=== PATIENT | female | born 1975 | race Caucasian/White ===

== ENCOUNTER 2017-03-21 15:16 | Emergency (ER) | payer OTHER ==
[2017-03-21 15:56] VITALS: RESP 18
[2017-03-21] MEDS ORDERED: IPRATROPIUM-ALBUTEROL 3 ML NEB INHALATION STA (16:35)
--- NOTE | 2017-03-21 16:35 | ED ---
URI HPI - General Chief Complaint: Upper Respiratory Infection Stated Complaint: Congestion/SOB Time Seen by Provider: 03/21/17 16:00 Source: patient, RN notes reviewed Mode of arrival: ambulatory Limitations: no limitations - History of Present Illness Initial Comments: Patient is a 42-year-old female presents to the emergency room for evaluation of cough and shortness of breath. Patient states she is a history of asthma. Patient states she has began developing upper respiratory symptoms about a week ago. Patient states symptoms have traveled to her chest. Patient states she has a very hard/dry cough. Patient states been very congested. Patient states after the cough she feels lightheaded and short of breath. Patient states she' s been using her rescue inhaler with relief of symptoms. Patient states the rest of her family has same upper respiratory symptoms. Patient states she called her primary care provider but he is not in the office so she was sent to the emergency room to get a chest x-ray. Patient states she has throat pain from coughing. Patient states both of her ears feel "blocked". Patient denies chest pain. Patient denies abdominal pain. Patient denies nausea or vomiting. Patient denies fevers or chills. - Related Data Home Medications Medication Instructions Recorded Confirmed DULoxetine HCL [Cymbalta] 60 mg PO DAILY 03/21/17 03/21/17 Lisinopril [Prinivil] 10 mg PO DAILY 03/21/17 03/21/17 Omeprazole [PriLOSEC] 20 mg PO AC-BRKFST 03/21/17 03/21/17 Ranitidine HCl [Zantac] 150 mg PO HS 03/21/17 03/21/17 clonazePAM [KlonoPIN] 0.5 mg PO TID 03/21/17 03/21/17 traMADol HCL [Ultram] 50 mg PO TID PRN 03/21/17 03/21/17 Previous Rx's Medication Instructions Recorded Amoxicillin 500 mg PO Q8H 10 Days 03/21/17 predniSONE 50 mg PO DAILY #5 tablet 03/21/17 Allergies Allergy/AdvReac Type Severity Reaction Status Date / Time ampicillin [From Unasyn] Allergy Rash/Hives Verified 03/21/17 16:23 erythromycin base Allergy Rash/Hives Verified 03/21/17 16:23 [From E-Mycin] sulbactam [From Unasyn] Allergy Rash/Hives Verified 03/21/17 16:23 Review of Systems ROS Statement: Those systems with pertinent positive or pertinent negative responses have been documented in the HPI. ROS Other: All systems not noted in ROS Statement are negative. Past Medical History Past Medical History: Asthma History of Any Multi-Drug Resistant Organisms: None Reported Past Surgical History: No Surgical Hx Reported Past Psychological History: No Psychological Hx Reported Smoking Status: Never smoker Past Alcohol Use History: None Reported Past Drug Use History: None Reported General Exam - General Exam Comments Initial Comments: sitting in exam room, no acute distress. Limitations: no limitations General appearance: alert, in no apparent distress Head exam: Present: atraumatic, normocephalic, normal inspection Eye exam: Present: normal appearance, PERRL, EOMI Pupils: Present: normal accommodation ENT exam: Present: normal exam, normal oropharynx, mucous membranes moist, TM's normal bilaterally Neck exam: Present: normal inspection, full ROM. Absent: tenderness, lymphadenopathy Respiratory exam: Present: wheezes. Absent: respiratory distress Cardiovascular Exam: Present: regular rate, tachycardia, normal heart sounds Extremities exam: Present: normal inspection Back exam: Present: normal inspection Neurological exam: Present: alert, oriented X3, CN II-XII intact, normal gait Psychiatric exam: Present: normal affect, normal mood Skin exam: Present: warm, dry, intact, normal color. Absent: rash Course Vital Signs 03/21/17 03/21/17 03/21/17 15:33 15:48 15:57 Temperature 98.5 F 97.8 F Pulse Rate 115 H 108 H Respiratory 22 18 18 Rate Blood Pressure 129/76 O2 Sat by Pulse 99 98 Oximetry 03/21/17 03/21/17 03/21/17 17:02 17:06 17:16 Temperature 98.1 F Pulse Rate 105 H 108 H Respiratory Rate Blood Pressure O2 Sat by Pulse 96 Oximetry Medical Decision Making - Medical Decision Making patient is a 42-year-old female presents for evaluation of cough. Patient does have history of asthma. Patient having asthma exacerbation. Chest x-ray shows no acute findings. Additionally placed on antibiotics and prednisone. Patient does state that she is ALLERGIC to azithromycin. Patient states that usually she is placed on amoxicillin. Patient does state she had an ALLERGIC reaction to Unasyn but denies any history of ALLERGIC reactions to amoxicillin. Advised patient to follow-up with her primary care provider in 24-48 hours for reevaluation patient states she understands everything that was discussed with her. Return parameters discussed. Case discussed with Dr. Desouza. - Lab Data Result diagrams: 03/21/17 17:00 03/21/17 17:00 Lab Results 03/21/17 03/21/17 Range/Units 17:00 17:00 WBC 10.1 (3.8-10.6) k/uL RBC 5.41 H (3.80-5.40) m/uL Hgb 15.0 (11.4-16.0) gm/dL Hct 44.6 (34.0-46.0) % MCV 82.5 (80.0-100.0) fL MCH 27.8 (25.0-35.0) pg MCHC 33.6 (31.0-37.0) g/dL RDW 13.0 (11.5-15.5) % Plt Count 296 (150-450) k/uL Neutrophils % 56 % Lymphocytes % 33 % Monocytes % 5 % Eosinophils % 3 % Basophils % 1 % Neutrophils # 5.7 (1.3-7.7) k/uL Lymphocytes # 3.4 (1.0-4.8) k/uL Monocytes # 0.5 (0-1.0) k/uL Eosinophils # 0.3 (0-0.7) k/uL Basophils # 0.1 (0-0.2) k/uL Sodium 134 L (137-145) mmol/L Potassium 4.3 (3.5-5.1) mmol/L Chloride 101 (98-107) mmol/L Carbon Dioxide 19 L (22-30) mmol/L Anion Gap 14 mmol/L BUN 13 (7-17) mg/dL Creatinine 0.57 (0.52-1.04) mg/dL Est GFR (MDRD) Af Amer >60 (>60 ml/min/1.73 sqM) Est GFR (MDRD) Non-Af >60 (>60 ml/min/1.73 sqM) Glucose 242 H (74-99) mg/dL Calcium 10.2 (8.4-10.2) mg/dL Total Bilirubin 0.5 (0.2-1.3) mg/dL AST 25 (14-36) U/L ALT 18 (9-52) U/L Alkaline Phosphatase 91 (38-126) U/L Total Protein 7.9 (6.3-8.2) g/dL Albumin 4.6 (3.5-5.0) g/dL - Radiology Data Radiology results: report reviewed, image reviewed Disposition Clinical Impression: Asthma exacerbation Disposition: HOME SELF-CARE Condition: Good Instructions: Asthma (ED) Additional Instructions: Take antibiotics as directed. Take prednisone as directed. Use inhaler as needed. Follow-up with primary care provider for reevaluation in 24-48 hours. If any new symptom arises or symptoms worsen, return to ER as soon as possible. Prescriptions: Amoxicillin 500 mg PO Q8H 10 Days predniSONE 50 mg PO DAILY #5 tablet Referrals: Carmen Ellis MD [Primary Care Provider] - 1-2 days Time of Disposition: 18:06
[2017-03-21 17:19] LABS: Basophils # (A) 0.1 k/uL (0-0.2); Basophils % (A) 1 %; CH 27.8; CHCM 33.7; Eosinophils # (A) 0.3 k/uL (0-0.7); Eosinophils % (A) 3 %; HCT 44.6 % (34.0-46.0); HDW 2.67; Luc # (Auto) 0.24; Luc % (Auto) 2; Lymphocytes # (A) 3.4 k/uL (1.0-4.8); Lymphocytes % (A) 33 %; MCH 27.8 pg (25.0-35.0); MCHC 33.6 g/dL (31.0-37.0); MCV 82.5 fL (80.0-100.0); Mean Platelet Volume 8.6; Monocytes # (A) 0.5 k/uL (0-1.0); Monocytes % (A) 5 %; Neutrophils # (A) 5.7 k/uL (1.3-7.7); Neutrophils % (A) 56 %; RBC 5.41 m/uL (3.80-5.40); WBC 10.1 k/uL (3.8-10.6); WBC (Perox) 10.29
--- NOTE | 2017-03-21 17:24 | XR ---
EXAMINATION TYPE: XR chest 2V DATE OF EXAM: 03/21/2017 COMPARISON: 04/25/2013 HISTORY: Chest pain TECHNIQUE: Frontal and lateral views of the chest are obtained. FINDINGS: There is no focal air space opacity. Chronic interstitial prominence noted. No evidence for pnuemothorax.No pleural effusion. The cardiac silhouette size is within normal limits. The osseous structures are grossly intact. IMPRESSION: 1. No acute cardiopulmonary process.
[2017-03-21 17:30] LABS: ALT 18 U/L (9-52); AST 25 U/L (14-36); Alkaline Phosphatase 91 U/L (38-126); Anion Gap 14 mmol/L; Blood Urea Nitrogen 13 mg/dL (7-17); Calcium 10.2 mg/dL (8.4-10.2); Carbon Dioxide 19 mmol/L (22-30); Chloride 101 mmol/L (98-107); Glucose 242 mg/dL (74-99); Non-African American GFR(MDRD) >60 (>60 ml/min/1.73 sqM); Potassium 4.3 mmol/L (3.5-5.1); Sodium 134 mmol/L (137-145); Total Bilirubin 0.5 mg/dL (0.2-1.3); Total Protein 7.9 g/dL (6.3-8.2)
[2017-03-21 18:22] VITALS: BP 144/85; PULSE 98; TEMP 97.4
== END 2017-03-21 18:22 | disposition home or self-care (01) ==
LOC: EC 15:16
DX: J45.901 Unspecified asthma with (acute) exacerbation (principal); R42 Dizziness and giddiness; Z79.899 Other long term (current) drug therapy; Z88.1 Allergy status to other antibiotic agents
CPT/HCPCS: 36415; 71020; 80053; 85025; 94640; 99284

== ENCOUNTER → 2017-07-05 | Outpatient (CLI) | payer MEDICARE ==
--- NOTE | 2017-07-05 20:46 | MR ---
EXAMINATION TYPE: MR lumbar spine wo/w con DATE OF EXAM: 07/05/2017 COMPARISON: NONE HISTORY: Right greater than left lateral back pain for 13 years per patient with pain going into bila teral buttocks and bilateral thighs per patient with spinal fusion L3, L4 and L5 levels 2005. Chronic low back pain per order. TECHNIQUE: Multiplanar, multisequence images of the lumbar spine is performed without and with IV contrast, util izing 12.5 mL intravenous Gadavist FINDINGS: Sagittal images of the lumbar spine show vertebral body heights and alignment to appear sat isfactory. Lumbar lordosis or slightly exaggerated curvature is centered at L2-L3 disc space. There i s subtle grade 1 retrolisthesis of L2 on L3 measured 4 mm on sagittal image 7. There is artifact from bilateral interpedicular rods and screws at L3-L5 levels noted. Artifact from disc material L3-L4 a nd L4-L5 levels is seen. There are bilateral laminectomy defects and spinous process resection in the posterior soft tissue. There is disc desiccation with mild to moderate disc space narrowing and ante rior spurring at L2-L3 level. The conus medullaris is normal in position and signal ending at superio r L1 level. The bone marrow signal intensity is within normal limits. No suspicious postcontrast enh ancement is seen. Axial images show the T12-L1 level to appear within normal limits. Axial images at the L1-L2 level show mild broad disc bulge minimally effacing anterior thecal sac. Bi lateral neural foramina are patent. Axial images at L2-L3 level show artifact from posterior surgical change. There is mild to moderate b road-based posterior disc protrusion minimally effacing anterior thecal sac. There is mild to moderat e left-sided anterior inferior neural foraminal narrowing suspected. Right-sided neural foramina is f elt patent. Persistent mild facet degenerative changes are effacing posterior lateral thecal sac at t his level. Axial images at L3-L4 and L4-L5 levels show artifact from posterior fusion hardware. There are bilate ral laminectomy defects and spinous process resection at both levels. Spinal canal is preserved at lucian th levels. Artifact from disc material is seen. Bilateral neural foramina are patent at both levels. Axial images at the L5-S1 level shows mild to moderate facet degenerative changes bilaterally. Spinal canal is preserved. Bilateral neural foramina are patent. No suspicious retroperitoneal findings are identified. No suspicious enhancement is noted. IMPRESSION: Postsurgical change L3-L5 levels with satisfactory desired results of bilateral neural fo ramina patency and spinal canal preservation. There is however increased focal curvature centered at L2-L3 disc space and multilevel degenerative changes at this level causing most prominent spinal ren l effacement and eccentric left-sided neural foraminal narrowing. Further details are noted as discus sed above.
== END | disposition home or self-care (01) ==
LOC: RADMRIMAIN 18:38
PROVIDERS: ATTEND Family Medicine
DX: M99.73 Connective tissue and disc stenosis of intervertebral foramina of lumbar region (principal); M47.816 Spondylosis without myelopathy or radiculopathy, lumbar region; Z98.890 Other specified postprocedural states
CPT/HCPCS: 72158; A9581

== ENCOUNTER 2017-12-02 20:25 | Emergency (ER) | payer MEDICARE ==
[2017-12-02 20:32] VITALS: BP 113/65; PULSE 101; RESP 18; TEMP 97.4
[2017-12-02] MEDS ORDERED: HYDROcodone/APAP 5-325MG 1 EACH TAB PO STA (20:41)
[2017-12-02] MEDS ORDERED: KETOROLAC 30 MG/ML 1 ML VIAL IM STA (20:41)
--- NOTE | 2017-12-02 21:22 | XR ---
EXAMINATION TYPE: XR pelvis AP view DATE OF EXAM: 12/02/2017 COMPARISON: NONE HISTORY: Pain radiating to right side TECHNIQUE: AP pelvis FINDINGS: There is attempted sacralization of L5 on the left. Sacroiliac joints are intact. Symphysis pubis is normal. Femoral heads articulate with the acetabulum. No acute fractures are evident. IMPRESSION: 1. No acute osseous abnormality.
--- NOTE | 2017-12-02 21:24 | XR ---
EXAMINATION TYPE: XR lumbosacral spine min 4V DATE OF EXAM: 12/02/2017 COMPARISON: NONE HISTORY: Low back pain radiating to right side TECHNIQUE: Five-view lumbar spine FINDINGS: There 5 lumbar-type vertebral bodies. L3-L5 pedicle screws and fixation rods. The L5 verteb ral level has attempted sacralization on the left. The L1-2 disc space is normal. There is some narro wing of the L2-3 disc space. Disc spaces are within the lower lumbar spine. L1 and L2 pedicles are in tact. Minimal retrolisthesis of L2 on L3 may be present. Vertebral body alignment is otherwise unrema rkable. IMPRESSION: 1. Degenerative disc changes and minimal retrolisthesis of L2 on L3. 2. Postsurgical changes.
--- NOTE | 2017-12-02 21:29 | ED ---
Fall HPI - General Chief Complaint: Fall Stated Complaint: fall/hip & back pain Time Seen by Provider: 12/02/17 20:32 Source: patient Mode of arrival: wheelchair - History of Present Illness Initial Comments: 42-year-old female patient presents to the emergency department today for complete the diffuse lower back pain after slip and fall accident approximate 35 minutes prior to arrival. Patient states that she fell landing on her left lower back. Patient states that she is having pain across her entire back and radiating down the left anterior thigh. Patient states that she has a history of chronic low back pain and has had spinal surgery before. Patient denies any new numbness or tingling. She denies any loss of bowel or bladder control. She denies any saddle anesthesia. She denies hitting her head or losing consciousness during the injury. She denies any other injuries. Patient denies any headache, neck pain, chest pain, shortness of breath, dizziness, weakness, abdominal pain, nausea, vomiting, or difficulties with bowel movements or urination. - Related Data Home Medications Medication Instructions Recorded Confirmed DULoxetine HCL [Cymbalta] 60 mg PO DAILY 03/21/17 03/21/17 Lisinopril [Prinivil] 10 mg PO DAILY 03/21/17 03/21/17 Omeprazole [PriLOSEC] 20 mg PO AC-BRKFST 03/21/17 03/21/17 Ranitidine HCl [Zantac] 150 mg PO HS 03/21/17 03/21/17 clonazePAM [KlonoPIN] 0.5 mg PO TID 03/21/17 03/21/17 traMADol HCL [Ultram] 50 mg PO TID PRN 03/21/17 03/21/17 Previous Rx's Medication Instructions Recorded Amoxicillin 500 mg PO Q8H 10 Days capsule 03/21/17 predniSONE 50 mg PO DAILY #5 tablet 03/21/17 Acetaminophen-Codeine 300-30mg 1 tab PO Q6H PRN #15 tablet 12/02/17 [Tylenol #3] Cyclobenzaprine [Flexeril] 10 mg PO TID #15 tab 12/02/17 Allergies Allergy/AdvReac Type Severity Reaction Status Date / Time ampicillin [From Unasyn] Allergy Rash/Hives Verified 12/02/17 20:32 erythromycin base Allergy Rash/Hives Verified 12/02/17 20:32 [From E-Mycin] sulbactam [From Unasyn] Allergy Rash/Hives Verified 12/02/17 20:32 Review of Systems ROS Statement: Those systems with pertinent positive or pertinent negative responses have been documented in the HPI. ROS Other: All systems not noted in ROS Statement are negative. Past Medical History Past Medical History: Asthma, Diabetes Mellitus, Hypertension Additional Past Medical History / Comment(s): chronic back pain History of Any Multi-Drug Resistant Organisms: None Reported Past Surgical History: Back Surgery Additional Past Surgical History / Comment(s): spinal fusion Past Psychological History: ADD/ADHD, Anxiety, Bipolar Smoking Status: Current every day smoker Past Alcohol Use History: None Reported Past Drug Use History: None Reported General Exam Limitations: no limitations General appearance: alert, in no apparent distress, other (This is a well- developed, well-nourished adult female patient in no acute distress. Vital signs upon presentation are temperature 97.4F, pulse 101, respirations 18, blood pressure 113/65, pulse ox 97% on room air.) Head exam: Present: atraumatic, normocephalic, normal inspection Eye exam: Present: normal appearance, PERRL, EOMI. Absent: scleral icterus, conjunctival injection, periorbital swelling ENT exam: Present: normal exam, normal oropharynx, mucous membranes moist Neck exam: Present: normal inspection, full ROM, other (Nontender, no step-off, no deformity to firm midline palpation of the posterior cervical spine. Full range of motion without pain or limitation.). Absent: tenderness, meningismus, lymphadenopathy Respiratory exam: Present: normal lung sounds bilaterally. Absent: respiratory distress, wheezes, rales, rhonchi, stridor Cardiovascular Exam: Present: regular rate, normal rhythm, normal heart sounds. Absent: systolic murmur, diastolic murmur, rubs, gallop, clicks Extremities exam: Present: normal inspection, full ROM, normal capillary refill , other (Lower extremity skin is pink, warm, and dry. Cap refills less than 3 seconds. Pedal and Post tibial pulses are 2+ and equal bilaterally.). Absent: tenderness, pedal edema, joint swelling, calf tenderness Back exam: Present: normal inspection, paraspinal tenderness (Left lower back tenderness). Absent: vertebral tenderness Neurological exam: Present: alert, oriented X3, CN II-XII intact, other ( Strength of the bilateral lower extremities is 5/5) Psychiatric exam: Present: normal affect, normal mood Skin exam: Present: warm, dry, intact, normal color. Absent: rash Course Vital Signs 12/02/17 20:26 Temperature 97.4 F L Pulse Rate 101 H Respiratory 18 Rate Blood Pressure 113/65 O2 Sat by Pulse 97 Oximetry Medical Decision Making - Medical Decision Making 42-year-old female patient presented to the emergency department today for evaluation of acute on chronic lower back pain. Patient had been fall 35 minutes prior to arrival. Physical examination is generally unremarkable, she does have some mild tenderness to the left lower back. She has good strength in lower extremities. Neurovascular status is intact patient is neurologically intact. X-rays of the lumbosacral spine and of the pelvis were negative for any acute process. Patient will be discharged home with Tylenol 3 and Flexeril for pain control. She is educated regarding application of ice and heat. She is instructed to follow-up with a hiv prevention specialist for further evaluation. We did discuss Dr. Krishnan, he will be added to her discharge instructions per she is instructed to return here immediately for any new, worsening, or concerning symptoms and she verbalizes understanding and agrees with this plan to - Radiology Data Radiology results: report reviewed, image reviewed 5 views of the lumbar spine is obtained, there are 5 lumbar type vertebral bodies. L3 to L5 pedicle screws and fixation rods. The L5 vertebral level has attempted sacralization on the left. They'll 1-2 disc spaces normal. There is some narrowing of the L2 to 3 disc space. This spaces are within the lower lumbar spine. L1 to L2 pedicles are intact. Minimal retrolisthesis of L2 on L3 may be present. Vertebral body alignment is otherwise unremarkable. Impression by Dr. Barney shows degenerative disc changes and minimal retrolisthesis of L2 on L3. Post surgical changes. AP view of the pelvis is obtained there is attempted sacralization of L5 on the left. Sacroiliac joints appear intact. Symphysis pubis is normal. Femoral heads articulate with the acetabulum. No acute fractures are evident. Impression by Dr. Barney shows no acute osseous abnormality. Disposition Clinical Impression: Acute exacerbation of chronic low back pain Disposition: HOME SELF-CARE Condition: Good Instructions: Acute Low Back Pain (ED) Additional Instructions: Apply ice to the low back for the first 24 hours. Switch to warm moist heat after the 24-hour period is up. Take medications as directed. Follow-up with her primary care physician for further evaluation. Return here immediately for any new, worsening, or concerning symptoms. Prescriptions: Acetaminophen-Codeine 300-30mg [Tylenol #3] 1 tab PO Q6H PRN #15 tablet PRN Reason: Pain Cyclobenzaprine [Flexeril] 10 mg PO TID #15 tab Referrals: Carmen Ellis MD [Primary Care Provider] - 1-2 days Time of Disposition: 21:29
== END 2017-12-02 21:30 | disposition home or self-care (01) ==
LOC: EC 20:25
DX: M54.5 Low back pain (principal); G89.29 Other chronic pain; I10 Essential (primary) hypertension; F41.9 Anxiety disorder, unspecified; F31.9 Bipolar disorder, unspecified; F17.200 Nicotine dependence, unspecified, uncomplicated; Z79.899 Other long term (current) drug therapy; Z88.1 Allergy status to other antibiotic agents; Z88.8 Allergy status to other drugs, medicaments and biological substances; W01.0XXA Fall on same level from slipping, tripping and stumbling without subsequent striking against object, initial encounter; Y92.009 Unspecified place in unspecified non-institutional (private) residence as the place of occurrence of the external cause
CPT/HCPCS: 72110; 72170; 99283; 96372; J1885

== ENCOUNTER → 2017-12-20 | Outpatient (CLI) | payer MEDICARE ==
[2017-12-20 16:35] LABS: Appearance,Urine Clear (Clear); Bacteria,Urine Rare /hpf; Bilirubin,Urine Negative (Negative); Blood,Urine Large (Negative); Color,Urine Yellow; Glucose,Urine (UA) Negative (Negative); Ketones,Urine Negative (Negative); Leukocyte Esterase,Urine Negative (Negative); Mucus,Urine Rare /hpf; Protein,Urine Negative (Negative); RBC,Urine 34 /hpf (0-5); Specific Gravity,Urine 1.021 (1.001-1.035); Squamous Epithelial Cell,Urine 5 /hpf (0-4); Urobilinogen,Urine <2.0 mg/dL (<2.0); WBC,Urine 1 /hpf (0-5)
[2017-12-20 16:39] LABS: Basophils # (A) 0.1 k/uL (0-0.2); Basophils % (A) 1 %; Eosinophils # (A) 0.2 k/uL (0-0.7); Eosinophils % (A) 1 %; HCT 45.8 % (34.0-46.0); HGB 14.3 gm/dL (11.4-16.0); Lymphocytes # (A) 3.3 k/uL (1.0-4.8); Lymphocytes % (A) 24 %; MCH 26.7 pg (25.0-35.0); MCHC 31.3 g/dL (31.0-37.0); MCV 85.3 fL (80.0-100.0); Mean Platelet Volume 8.2; Monocytes # (A) 0.5 k/uL (0-1.0); Monocytes % (A) 4 %; Neutrophils # (A) 9.7 k/uL (1.3-7.7); Neutrophils % (A) 70 %; Platelet Count 308 k/uL (150-450); RBC 5.37 m/uL (3.80-5.40); RDW 12.8 % (11.5-15.5); WBC 13.9 k/uL (3.8-10.6)
[2017-12-20 16:47] LABS: ALT 19 U/L (9-52); AST 24 U/L (14-36); Albumin 4.6 g/dL (3.5-5.0); Alkaline Phosphatase 80 U/L (38-126); Anion Gap 14 mmol/L; Blood Urea Nitrogen 11 mg/dL (7-17); Calcium 10.4 mg/dL (8.4-10.2); Carbon Dioxide 27 mmol/L (22-30); Chloride 100 mmol/L (98-107); Cholesterol 232 mg/dL (<200); Glucose 102 mg/dL (74-99); HDL Cholesterol 45 mg/dL (40-60); LDL Cholesterol,Calculated 119 mg/dL (0-99); Potassium 4.2 mmol/L (3.5-5.1); Sodium 141 mmol/L (137-145); Total Bilirubin 0.3 mg/dL (0.2-1.3); Total Protein 7.9 g/dL (6.3-8.2); Triglycerides 339 mg/dL (<150)
[2017-12-21 01:29] LABS: Hemoglobin A1C 6.2 % (4.0-6.0)
== END | disposition home or self-care (01) ==
LOC: LABWHC1 15:27
PROVIDERS: ATTEND Family Medicine
DX: E11.65 Type 2 diabetes mellitus with hyperglycemia (principal); E78.5 Hyperlipidemia, unspecified; I10 Essential (primary) hypertension
CPT/HCPCS: 36415; 80053; 80061; 81001; 82043; 82570; 83036; 85025

== ENCOUNTER 2018-04-28 17:56 | Emergency (ER) | payer MEDICARE ==
[2018-04-28 18:44] VITALS: RESP 16; TEMP 98.4
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
--- NOTE | 2018-04-28 19:44 | XR ---
EXAMINATION TYPE: XR knee complete LT DATE OF EXAM: 04/28/2018 COMPARISON: NONE HISTORY: 43-year-old female with pain TECHNIQUE: 3 views FINDINGS: There is degenerative spurring in the lateral compartment to a lesser extent within the medial compar tment. Small to moderate knee joint effusion. Extensor mechanism appears intact. IMPRESSION: 1. Small to moderate knee joint effusion. 2. Bicompartmental osteoarthrosis greater in the lateral compartment. 3. No acute osseous abnormality seen. However, given the joint effusion, if concern for internal dera ngement, MRI can be performed.
[2018-04-28] MEDS ORDERED: IBUPROFEN 600 MG TAB PO STA (19:55)
[2018-04-28 20:09] VITALS: BP 122/81; PULSE 83
== END 2018-04-28 20:07 | disposition home or self-care (01) ==
LOC: EC 17:56
DX: S89.82XA Other specified injuries of left lower leg, initial encounter (principal); M17.12 Unilateral primary osteoarthritis, left knee; J45.909 Unspecified asthma, uncomplicated; I10 Essential (primary) hypertension; E11.9 Type 2 diabetes mellitus without complications; F31.9 Bipolar disorder, unspecified; F41.9 Anxiety disorder, unspecified; F90.9 Attention-deficit hyperactivity disorder, unspecified type; F17.200 Nicotine dependence, unspecified, uncomplicated; Z79.84 Long term (current) use of oral hypoglycemic drugs; Z79.899 Other long term (current) drug therapy; Z88.0 Allergy status to penicillin; Z88.1 Allergy status to other antibiotic agents; Y08.89XA Assault by other specified means, initial encounter; Y93.89 Activity, other specified; Y92.89 Other specified places as the place of occurrence of the external cause
CPT/HCPCS: 73562; 99284; L1830

== ENCOUNTER 2018-07-20 13:49 | Emergency (ER) | payer MEDICARE ==
[2018-07-20 14:12] VITALS: BP 118/71; PULSE 114; RESP 18; TEMP 98.2
[2018-07-20] MEDS ORDERED: METHOCARBAMOL 750 MG TAB PO ONE (14:46)
--- NOTE | 2018-07-20 14:54 | ED ---
General Adult HPI - General Chief complaint: Back Pain/Injury Stated complaint: Leg pain/numbness Time Seen by Provider: 07/20/18 14:28 Source: patient Mode of arrival: wheelchair Limitations: no limitations - History of Present Illness Initial comments: Patient presents with a chief complaint of left lateral leg pain and anterior sanchez numbness including going on for 4 days. The patient has a history of herniated disks and a subsequent lumbar fusion. Patient states that she went on a nicholas walk just prior to the onset of her pain. She states that her leg feels "heavy", and that is aggravated by moving and standing. The pain is alleviated by sitting cross legged. Timing is constant. Patient was told by her primary care doctor to come to the emergency department for evaluation if the pain does not get better, and because it is Sunday. - Related Data Home Medications Medication Instructions Recorded Confirmed DULoxetine HCL [Cymbalta] 60 mg PO DAILY 03/21/17 01/31/18 Omeprazole [PriLOSEC] 20 mg PO AC-BRKFST 03/21/17 01/31/18 Ranitidine HCl [Zantac] 150 mg PO HS 03/21/17 01/31/18 Albuterol Sulfate [Proair Hfa] 1 - 2 puff INHALATION RT-QID PRN 01/31/18 Cyclobenzaprine [Flexeril] 10 mg PO TID PRN 01/31/18 01/31/18 Lisdexamfetamine Dimesylate 70 mg PO DAILY 01/31/18 01/31/18 [Vyvanse] Losartan Potassium 50 mg PO DAILY 01/31/18 01/31/18 OLANZapine [ZyPREXA] 5 mg PO HS 01/31/18 01/31/18 Pregabalin [Lyrica] 200 mg PO BID 01/31/18 01/31/18 clonazePAM [KlonoPIN] 1 mg PO BID 01/31/18 01/31/18 metFORMIN HCL 1,000 mg PO BID 01/31/18 01/31/18 Previous Rx's Medication Instructions Recorded Acetaminophen-Codeine 300-30mg 1 tab PO Q6H PRN #10 tablet 01/31/18 [Tylenol #3] Cyclobenzaprine [Flexeril] 10 mg PO TID PRN #15 tab 01/31/18 Methocarbamol [Robaxin-750] 750 mg PO TID #21 tablet 07/20/18 Allergies Allergy/AdvReac Type Severity Reaction Status Date / Time ampicillin [From Unasyn] Allergy Rash/Hives Verified 07/20/18 14:12 erythromycin base Allergy Rash/Hives Verified 07/20/18 14:12 [From E-Mycin] sulbactam [From Unasyn] Allergy Rash/Hives Verified 07/20/18 14:12 Review of Systems ROS Statement: Those systems with pertinent positive or pertinent negative responses have been documented in the HPI. ROS Other: All systems not noted in ROS Statement are negative. Musculoskeletal: Reports: arthralgia Past Medical History Past Medical History: Asthma, Diabetes Mellitus, Hypertension Additional Past Medical History / Comment(s): chronic back pain History of Any Multi-Drug Resistant Organisms: None Reported Past Surgical History: Back Surgery Additional Past Surgical History / Comment(s): spinal fusion Past Psychological History: ADD/ADHD, Anxiety, Bipolar Smoking Status: Current some day smoker Past Alcohol Use History: Occasional Past Drug Use History: None Reported, Marijuana General Exam Limitations: no limitations General appearance: alert, in no apparent distress Head exam: Present: atraumatic, normocephalic Eye exam: Present: normal appearance ENT exam: Present: normal exam Neck exam: Present: normal inspection Respiratory exam: Present: normal lung sounds bilaterally. Absent: respiratory distress, wheezes Cardiovascular Exam: Present: regular rate, normal rhythm GI/Abdominal exam: Present: soft. Absent: distended, tenderness Rectal exam: Present: deferred Extremities exam: Present: other (patient has tenderness to palpation of the lateral left leg. patient has parasthesia on the anterior sanchez, but otherwise has intact motor and sensation. strenght in 5/5 in b/l lower extremities. ) Back exam: Present: normal inspection Neurological exam: Present: alert, oriented X3 Psychiatric exam: Present: normal affect, normal mood Skin exam: Present: warm, dry, intact Course Vital Signs 07/20/18 14:09 Temperature 98.2 F Pulse Rate 114 H Respiratory 18 Rate Blood Pressure 118/71 O2 Sat by Pulse 98 Oximetry Medical Decision Making - Medical Decision Making Patient presents with a CC of lateral left leg pain and parasthesia to the anterior lower left leg. on initial evaluation, VS are stable, patient in no acute distress. pain is aggravated with extension at the hip but better with flexion and external rotation. there are no signs of DVT, compartment syndrome , or nerve palsy. patient likely suffering from obturator syndrome, vs. IT band syndrome, vs other chronic pain issues. patient states she is already on vicoden from her PCP and that she is trying to set up an appointment with her previous back surgeon. patient offered robaxin and stretching exercises. at this time, patient is agreeable to a trial of muscle relaxants and conservative management. there is no evidence of cord compression at this time. patient was instructed to follow up with pcp on sunday or return to the ED if sx worsen or change. Disposition Clinical Impression: Leg pain, IT band syndrome Disposition: HOME SELF-CARE Condition: Good Instructions: Hip Pain (ED) Prescriptions: Methocarbamol [Robaxin-750] 750 mg PO TID #21 tablet Is patient prescribed a controlled substance at d/c from ED?: No Referrals: Carmen Ellis MD [Primary Care Provider] - 1-2 days
== END 2018-07-20 15:21 | disposition home or self-care (01) ==
LOC: EC 13:49
DX: M76.32 Iliotibial band syndrome, left leg (principal); F17.200 Nicotine dependence, unspecified, uncomplicated; J45.909 Unspecified asthma, uncomplicated; E11.9 Type 2 diabetes mellitus without complications; I10 Essential (primary) hypertension; F31.9 Bipolar disorder, unspecified; F41.9 Anxiety disorder, unspecified; Z79.899 Other long term (current) drug therapy; Z79.84 Long term (current) use of oral hypoglycemic drugs; Z88.1 Allergy status to other antibiotic agents
CPT/HCPCS: 99283

== ENCOUNTER → 2018-08-14 | Outpatient (CLI) | payer MEDICARE ==
[2018-08-14 15:13] VITALS: BP 114/68; PULSE 100; RESP 20
--- NOTE | 2018-08-15 19:46 | P.PAINCN ---
History of Present Illness - Reason for Consult Consult date: 08/14/18 - History of Present Illness This is a 43 years old female with a chronic history of severe low back pain, with radiation to the left lower extremity associated with severe numbness and tingling sensation,, and left leg weakness, patient had lumbar laminectomy and fusion surgery from L3 to S1 done in 2005, she had some relief after the surgery , then she will years later she started having the symptoms described above, she tried physical therapy without any benefit, and she had interventional pain management done at different institution which was complicated with postdural puncture headache, currently on medications Zanaflex every 8 hours [place] 5/325 every 8 hours when necessary, and Lyrica 200 mg twice a day, and she is getting only minimal benefit, on the medication management, she denies any fever or night sweats she denies any change in the bowel movements or urination. Past Medical History Past Medical History: Asthma, Diabetes Mellitus, Hypertension Additional Past Medical History / Comment(s): chronic back pain History of Any Multi-Drug Resistant Organisms: None Reported Past Surgical History: Back Surgery Additional Past Surgical History / Comment(s): spinal fusion Past Psychological History: ADD/ADHD, Anxiety, Bipolar Smoking Status: Current some day smoker Past Alcohol Use History: Occasional Past Drug Use History: None Reported, Marijuana Medications and Allergies Home Medications Medication Instructions Recorded Confirmed Type DULoxetine HCL [Cymbalta] 60 mg PO DAILY 03/21/17 08/14/18 History Omeprazole [PriLOSEC] 20 mg PO AC-BRKFST 03/21/17 08/14/18 History Ranitidine HCl [Zantac] 150 mg PO HS 03/21/17 08/14/18 History Albuterol Sulfate [Proair Hfa] 1 - 2 puff INHALATION RT-QID PRN 01/31/18 History Lisdexamfetamine Dimesylate 70 mg PO DAILY 01/31/18 08/14/18 History [Vyvanse] Losartan Potassium 100 mg PO DAILY 01/31/18 08/14/18 History OLANZapine [ZyPREXA] 7.5 mg PO HS 01/31/18 08/14/18 History Pregabalin [Lyrica] 200 mg PO BID 01/31/18 08/14/18 History clonazePAM [KlonoPIN] 1 mg PO BID 01/31/18 08/14/18 History metFORMIN HCL 1,000 mg PO BID 01/31/18 08/14/18 History Atorvastatin [Lipitor] 1 tab PO DIRECTED 08/14/18 08/14/18 History HYDROcodone/APAP 5-325MG [[place] 1 tab PO TID PRN 08/14/18 08/14/18 History 5-325] tiZANidine [Zanaflex] 1 tab PO DIRECTED PRN 08/14/18 08/14/18 History Allergies Allergy/AdvReac Type Severity Reaction Status Date / Time ampicillin [From Unasyn] Allergy Rash/Hives Verified 08/14/18 14:54 erythromycin base Allergy Rash/Hives Verified 08/14/18 14:54 [From E-Mycin] sulbactam [From Unasyn] Allergy Rash/Hives Verified 08/14/18 14:54 Physical Exam Social history : smoker , NO ETOH , NO Illegal drugs use ( tried marijuana ) 1 month ago. Review of Systems : 1- Constitutional : no chills , no fever , no night sweats , 2- Ears : no ear discharge , no change in hearing 3-Nose, Mouth ,Throat ; no bleeding gums, no sore throat , no epistaxis , 4-Cardiovascular : Denies chest pain, , no orthopnea , no palpitation 5-Respiratory : Denies cough , no dyspnea , no hemoptysis , serofast 6-Gastrointestinal :, no change in bowel habits , no coffee- ground emesis . 7-Genitourinary : No hematuria , no discharge , no incontinence, 8-Musculoskeletal : gait dysfunction , ambulate using cane, report low back pain , 9- Neurological : no ataxia , no tremor , no sezure , history of bipolar,, ADHD 10-Psychatric , no suicidal ideation no hallucination 11- Endocrine : History of diabetes 12-Hematologic : no easy bleeding , no easy brusing , 13-Allergic / immunology : no angioedema , no wheezing ,no allergic rhinitis 14-Integumentary : no brttle nails , no change hair / nails , no foot/leg ulcers . Physical Examinations : 1-Constitutional : Cooperative , not in acute distress . 2-HEENT : nech ; supple , no Lymphadenopathy , no Thyromegaly , :eyes , no icterus, no photophobia . ENT : , normal oropharynx , no Thrush 3- Respiratory : Chest clear to auscultations Bilaterally , no wheezing . 4- Cardiovascular : regular rate and rhythem , S1 , S2 , no S3 , no S4. 5- Gastrointestinal: abdomen soft no tenderness , no organomegally . 6- Genitourinary : Defferred . 7-Integumentary : No cellulitis , no ulcers , normal skin turgor , no cyanotic . 8- neurologic : Cranial nerve II to XII intact , no focal neurological deffecit 9-psychatric : alert , oriented X 3 , appropriate affect , intact judgment and insight . 10-Lymphatic : no Lymphadenopathy. 11- musculoskeltal: normal gait Lumber spine moter stegnth lower extremities ,thigh and legs 5/5 Right side , 5/5 Left side Decreased sensation below the left knee, positive paresthesia left leg below the knee deep tendon reflexes : normal Knee Jerk , normal ankle Jerk positive lumber facet Loading Test Range of motion of the lumbar spine Flexion 30 degrees, extension 10 degrees strait leg raising test negative bilaterally Fabere test negative bilaterally Sever tenderness over the Sacroiliac joint on the R and L sides Results Comments: MRI of the lumbar spine= lumbar laminectomy and L5-S1 facet Assessment and Plan Plan: Assessment and plan=1-failed back surgery syndrome and lumbar area 2-lumbar radiculopathy Patient could benefit from caudal epidural steroid injection with lysis of epidural adhesions, procedure risk and benefits and alternatives discussed with the patient she agreed to proceed Patient should continue her current medication, [place] 5/325 every 8 hours when necessary, Lyrica 200 mg twice a day, Zanaflex 4 mg every 8 hours when necessary (she is getting prescriptions from her primary care ) Time with Patient: Greater than 30 PQRS Measure Charge Sheet Measure #130: Documentation of Current Meds in Medical Chart: Patient's medications documented in chart Measure #226: Tobacco Use: Screen & Cessation Intervention: Pt screened for tobacco use AND intervention given Measure #111: Pneumonia Vaccination: Pneumococcal vaccine NOT administered or previously given Measure #47: Advance Care Plan: Advance care planning discussed & documented, pt chose/unable to give Measure #412: Opioid Treatment Agreement: No documentation of signed opioid treatment agreement Measure #408: Opioid Therapy Follow-up Evaluation: Patient had NO f/u eval minimum every 3 months during opioid therapy Measure #317: Preventitive Care & Scrn High Bld Press & F/U: Normal blood pressure, f/u not required Measure #128: Body Mass Index (BMI) Screening & Follow-up: BMI documented ABOVE normal parameters - f/u documented Measure #131: Pain Assessment & Follow-up: Pain positive & plan documented, Follow-up scheduled Measure #431: Unhealthy Alcohol Use Preventative Care & Scrn: Patient not identified as an unhealthy alcohol user PQRS Narrative: Smoking Status Current some day smoker Do You Want the Pneumonia No Vaccine AT THIS TIME? Blood Pressure 114/68 Pain Intensity [Generalized] 7 Scale Used Numeric (1 - 10) Hx Alcohol Use (MH) No Home Medications: Ambulatory Orders DULoxetine HCL [Cymbalta] 60 mg PO DAILY 03/21/17 Omeprazole [PriLOSEC] 20 mg PO AC-BRKFST 03/21/17 Ranitidine HCl [Zantac] 150 mg PO HS 03/21/17 Albuterol Sulfate [Proair Hfa] 1 - 2 puff INHALATION RT-QID PRN 01/31/18 Lisdexamfetamine Dimesylate [Vyvanse] 70 mg PO DAILY 01/31/18 Losartan Potassium 100 mg PO DAILY 01/31/18 OLANZapine [ZyPREXA] 7.5 mg PO HS 01/31/18 Pregabalin [Lyrica] 200 mg PO BID 01/31/18 clonazePAM [KlonoPIN] 1 mg PO BID 01/31/18 metFORMIN HCL 1,000 mg PO BID 01/31/18 Atorvastatin [Lipitor] 1 tab PO DIRECTED 08/14/18 HYDROcodone/APAP 5-325MG [[place] 5-325] 1 tab PO TID PRN 08/14/18 tiZANidine [Zanaflex] 1 tab PO DIRECTED PRN 08/14/18
== END | disposition home or self-care (01) ==
LOC: PNWHC3 13:51
PROVIDERS: ATTEND Specialist
DX: G89.29 Other chronic pain (principal); M54.5 Low back pain; M96.1 Postlaminectomy syndrome, not elsewhere classified; M54.16 Radiculopathy, lumbar region; J45.909 Unspecified asthma, uncomplicated; E11.9 Type 2 diabetes mellitus without complications; I10 Essential (primary) hypertension; F90.1 Attention-deficit hyperactivity disorder, predominantly hyperactive type; F41.9 Anxiety disorder, unspecified; F31.9 Bipolar disorder, unspecified; F17.200 Nicotine dependence, unspecified, uncomplicated; Z79.84 Long term (current) use of oral hypoglycemic drugs; Z98.1 Arthrodesis status; Z79.891 Long term (current) use of opiate analgesic; Z79.899 Other long term (current) drug therapy; Z98.890 Other specified postprocedural states; Z79.51 Long term (current) use of inhaled steroids; Z88.1 Allergy status to other antibiotic agents; Z88.0 Allergy status to penicillin; Z71.6 Tobacco abuse counseling
CPT/HCPCS: 99211

== ENCOUNTER → 2018-08-20 | Day surgery (SDC) | payer MEDICARE ==
[2018-08-20 08:08] VITALS: RESP 18; TEMP 97.9
[2018-08-20 08:29] LABS: Glucose,Whole Blood 141 mg/dL (75-99)
--- NOTE | 2018-08-20 09:21 | P.PCN ---
Date of Procedure: 08/20/18 Procedure(s) Performed: PREOP DIAGNOSIS: 1- Lumbar postlaminectomy syndrome POSTOP DIAGNOSIS:1- Lumbar postlaminectomy syndrome PROCEDURE: Caudal epidural steroid injection with epidurolysis and epidurogram under fluoroscopic guidance ANESTHESIA: Local with 1% lidocaine 3 ml ,and moderate sedation, with Versed 4 mg and fentanyl 100 g EBL: Minimal. PROCEDURE INDICATION: The patient with post-laminectomy syndrome with low back pain and radiculopathy radiating down in both legs, here for a caudal epidural steroid injection with epidurolysis. PROCEDURE DESCRIPTION: The patient was seen and identified in the preoperative area. Risks, benefits, complications, and alternatives were discussed with the patient. The patient agreed to proceed with the procedure and signed the consent. IV was started, and vital signs were stable. Patient was taken to the OR and time out was completed. The patient was placed in the prone position on procedure table and a pillow was placed under the abdomen to reduce lumbar lordosis. The lumbosacral area was prepped and draped in the usual sterile fashion. Vital signs were closely monitored during the procedure. lateral view and the anterior-posterior plates of the sacrum were identified with infiltration of the area overlying the sacral hiatus with 1% lidocaine .A 17 gauge RK epidural needle was used to advance through the sacral hiatus into the caudal epidural space. Omnipaque 180 dye. 2cc was injected and the position of the needle was verified to be in the midline. A Racz catheter was introduced into the epidural space and was advanced towards the L5-S1 interspace under direct fluoroscopic guidance. Multiple passes were made with the catheter for lysis of epidural adhesions. Depo-Medrol 80 mg with 3ml of preservative free Lidocaine 1% and 5 ml of preservative free normal saline was injected slowly. Additional spread was seen to L4 under fluoroscopy. The needle and the catheter were withdrawn intact. EPIDUROGRAM: Omnipaque 180 mg dye 2 ml was injected with spread of the dye into the caudal epidural space and with spread cutoff at L5 prior to epidurolysis. Post epidurolysis dye 2 ml was injected and spread was seen to L4- 5.There was further spread of the solution together with the dye above the L4 COMPLICATIONS: None. DISPOSITION / PLANS: The patient was placed in a supine position and transferred to the recovery area in a stable condition for observation and was discharged from the recovery room after meeting discharge criteria. Home discharge instructions given to the patient by the staff. The patient was reexamined prior to discharge. The patient will schedule a follow up in the clinic in 2-4 weeks.
[2018-08-20 09:45] VITALS: BP 147/93; PULSE 83
--- NOTE | 2018-08-20 09:48 | FL ---
EXAMINATION TYPE: FL guided pain mgmt statistic DATE OF EXAM: 08/20/2018 COMPARISON: NONE HISTORY: Demonstrating localization over the sacrum TECHNIQUE: Fluoroscopy. FINDINGS/IMPRESSION: Fluoroscopic guidance was provided during procedure performed by Dr. Garcia. A total of 8 seconds of fluoroscopic time was utilized during the procedure and 2 spot images was ac quired.
== END ==
LOC: ORPAIN 07:33
PROVIDERS: ATTEND Specialist
DX: G89.29 Other chronic pain (principal); M96.1 Postlaminectomy syndrome, not elsewhere classified; M54.16 Radiculopathy, lumbar region; J45.909 Unspecified asthma, uncomplicated; E11.9 Type 2 diabetes mellitus without complications; I10 Essential (primary) hypertension; F90.9 Attention-deficit hyperactivity disorder, unspecified type; F41.9 Anxiety disorder, unspecified; F31.9 Bipolar disorder, unspecified; F17.200 Nicotine dependence, unspecified, uncomplicated; Z98.1 Arthrodesis status; Z79.899 Other long term (current) drug therapy; Z79.84 Long term (current) use of oral hypoglycemic drugs; Z88.1 Allergy status to other antibiotic agents; Z88.0 Allergy status to penicillin; Z88.2 Allergy status to sulfonamides
CPT/HCPCS: 81025; 62264; J2250; J1030; J3010; Q9966; C1894; 99152

== ENCOUNTER 2018-10-01 08:29 | Day surgery (SDC) | payer MEDICARE ==
[2018-09-27 12:45] VITALS: BMI 39.4
[~2018-10-01 08:29] MED LIST: SODIUM CHLORIDE 0.9% 500 ML 500 ML IV SCH
[2018-10-01 09:40] VITALS: RESP 16; TEMP 97
[2018-10-01 09:41] LABS: Glucose,Whole Blood 175 mg/dL (75-99)
[2018-10-01] MEDS ORDERED: LACTATED RINGERS 1,000 ML IV ONE (09:41)
[2018-10-01] MEDS ORDERED: LIDOCAINE 1% 20 ML VIAL (10MG/ML) FOR IV START INTRADERMA ONE (09:42)
--- NOTE | 2018-10-01 10:33 | P.PCN ---
Date of Procedure: 10/01/18 Pathology: none sent Condition: stable Disposition: PACU Description of Procedure: PREOP DIAGNOSIS: Lumbar postlaminectomy syndrome POSTOP DIAGNOSIS: Lumbar postlaminectomy syndrome PROCEDURE: Caudal epidural steroid injection with epidurolysis and epidurogram under fluoroscopic guidance SURGEON: Karla Farr FIBER DESIGNER: ANESTHESIA: Local with 1% lidocaine; IV moderateconcious sedation EBL: Minimal. PROCEDURE INDICATION: The patient with post-laminectomy syndrome with low back pain and radiculopathy radiating down in both legs, here for a caudal epidural steroid injection with epidurolysis. PROCEDURE DESCRIPTION: The patient was seen and identified in the preoperative area. Risks, benefits, complications, and alternatives were discussed with the patient. The patient agreed to proceed with the procedure and signed the consent. IV was started, and vital signs were stable. Patient was taken to the OR and time out was completed. The patient was placed in the prone position on procedure table and a pillow was placed under the abdomen to reduce lumbar lordosis. The lumbosacral area was prepped and draped in the usual sterile fashion. Critical pause was taken. Vital signs were closely monitored during the procedure. Fluoroscopic camera was placed in the lateral view and the anterior-posterior plates of the sacrum were identified with infiltration of the area overlying the sacral hiatus with 1% lidocaine .A 16 gauge RK epidural needle was used to advance through the sacral hiatus into the caudal epidural space. Omnipaque 300 dye 2cc was injected and the position of the needle was verified to be in the midline. A Racz catheter was introduced into the epidural space and was advanced towards the L5-S1 interspace under direct fluoroscopic guidance. Multiple passes were made with the catheter for lysis of epidural adhesions. The epidural catheter threaded on the way up to the L4 5 level right beneath the patient's hardware towards the left of midline. Isovue injection showed good epidural spread at this level. Kenalog 40mg with 2ml of preservative free Ropivacaine 0.5% and 7 ml of preservative free normal saline was injected slowly. The needle and the catheter were withdrawn intact. COMPLICATIONS: None. DISPOSITION / PLANS: The patient was placed in a supine position and transferred to the recovery area in a stable condition for observation and was discharged from the recovery room after meeting discharge criteria. Home discharge instructions given to the patient by the staff. The patient was reexamined prior to discharge. The patient will schedule a follow up in the clinic in 2-4 weeks.
[2018-10-01] MEDS ORDERED: IV FLUID CONTINUATION 400 ML IV ONE (10:40)
[2018-10-01 10:57] VITALS: BP 123/86; PULSE 81
--- NOTE | 2018-10-01 10:57 | FL ---
EXAMINATION TYPE: FL guided pain mgmt statistic DATE OF EXAM: 10/01/2018 CLINICAL HISTORY: Low back pain. TECHNIQUE: Fluoroscopy. COMPARISON: None. FINDINGS: Fluoroscopic guidance was provided during pain relief procedure performed by Dr. Farr . A total of 8 seconds of fluoroscopic time was utilized during the procedure and two spot images are acquired. Images acquired shows needle localization at lower sacrum and L4 level lumbar spine, surg ical hardware lumbar spine is partially imaged. IMPRESSION: As Above.
== END 2018-10-01 11:10 | disposition home or self-care (01) ==
LOC: ORPAIN 08:29
PROVIDERS: ATTEND Anesthesiology
DX: M96.1 Postlaminectomy syndrome, not elsewhere classified (principal); E11.9 Type 2 diabetes mellitus without complications; I10 Essential (primary) hypertension; Z88.1 Allergy status to other antibiotic agents; Z88.0 Allergy status to penicillin
CPT/HCPCS: 81025; 62264; J2250; J3301; J3010; Q9966; C1894; 62323; 99152

== ENCOUNTER → 2018-12-16 | Outpatient (CLI) | payer MEDICARE ==
[2018-12-16 12:31] VITALS: BP 116/83; PULSE 78; RESP 16
--- NOTE | 2018-12-16 12:51 | P.PN ---
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 The patient also feels pain in her left leg from the knee down. She has numbness in the right thigh and the left thigh from previous surgeries on her back. She denies any bowel or bladder dysfunction. She had only 2 weeks of 100% of pain relief after each caudal epidural steroid injection that she had in our clinic. She still takes [place] 5 mg a day and her physician would like us to take over her opioids if possible. Today, pt denies new-onset weakness, bowel/bladder incontinence, or any other signs or symptoms of cauda equina syndrome. There are no signs of acute intoxication, and no indications of medication diversion or overuse. In addition to above, 13-point review of systems is also negative for chest pain , shortness of breath, changes in vision, changes in hearing, new onset weakness , abdominal pain, diarrhea, extreme fatigue, malaise, fever, skin changes, homicidal or suicidal ideation, or bowel or bladder incontinence. Vital Signs: Reviewed in EMR Gen: AAOx3, NAD HEENT: PERRLA,hearing grossly normal Pulm: resp unlabored,CTA Heart:S1,S2, No Mur Neck: supple, trachea midline Neuro exam of the lower extremities: Decreased but symmetrical knee reflexes, absent ankle reflexes bilaterally. Decreased but symmetrical muscle strength in the lower extremities to 4 out of 5. Straight leg raising test: Negative Tenderness in the paravertebral musculature: Mildly positive Neuro: CN II-XII grossly intact, Imaging: Reviewed in EMR/chart Assessment: Failed back surgery syndrome Obesity Diabetes Bipolar disease The patient has medical marijuana card Plan: 1. Explanation: Opioid and psychological risk scores were reviewed. Diagnoses , prognoses, and multiple treatment options including but not limited to physical therapy, interventional therapies, adjuvant medical therapies, narcotic medication therapies, and surgery were discussed with the patient and all questions were answered to the patient's satisfaction. 2. Opioid agreement: We do not prescribe opioids. We recommend that the patient sees Dr. King if she wants to escalate her opioid treatment 3. Counseling: The patient was counseled extensively on SMOKING CESSATION, BODY MASS INDEX, EXERCISE. Specifically, the patient was instructed regarding the importance of smoking cessation, obesity, and exercise in the context of both chronic pain and overall health. 4. Procedures: None for now 5. Consultations: None 6. Investigations: None 7. Medications: Continue her current medications with no changes 8. Disposition: Return to clinic in 3-4 months for caudal epidural steroid injection with lysis of adhesions if needed. 9. Maps were reviewed and were appropriate. PQRS measures: 1-Patient's medications are documented in the chart. 2-Tobacco use is negative, counseling given 3-Patient has had a pneumococcal vaccine. 4-Advanced care planning discussed, patient unable to give 5-Opioid contract not signed with the patient. 6-Pain positive, follow-up visit or procedure scheduled 7-Patient's blood pressure measured and documented within normal limits. 8-Patient's weight was measured, and body mass index ABOVE the normal limits, and counseling was done. Patient instructed to follow up with PCP. 9-Patient WAS NOT identified as an unhealthy alcohol user. Controlled Substance Measures Is patient prescribed a controlled substance at discharge?: Yes When asked, does pt state using other controlled substances?: No If prescribed controlled substance>3 days was MAPS reviewed?: Yes If Rx opioid, was Start Talking consent form obtained?: Yes If opioid is for acute pain is fill amount 7 days or less?: No Was information provided regarding opioid addiction?: Yes Objective - Vital Signs Vital signs: Vital Signs Temp Pulse 78 12/16/18 12:20 Resp 16 12/16/18 12:20 BP 116/83 12/16/18 12:20 Pulse Ox Intake & Output 12/15/18 12/16/18 12/16/18 18:59 06:59 18:59 Weight 125.191 kg
== END ==
LOC: PNWHC3 12:07
PROVIDERS: ATTEND Anesthesiology
DX: M96.1 Postlaminectomy syndrome, not elsewhere classified (principal); E66.9 Obesity, unspecified; E11.9 Type 2 diabetes mellitus without complications; F31.9 Bipolar disorder, unspecified; Z79.891 Long term (current) use of opiate analgesic
CPT/HCPCS: 99211

== ENCOUNTER → 2019-01-03 | Outpatient (CLI) | payer MEDICARE ==
[2019-01-03 11:28] LABS: Basophils # (A) 0.1 k/uL (0-0.2); Basophils % (A) 1 %; Eosinophils # (A) 0.4 k/uL (0-0.7); Eosinophils % (A) 4 %; HCT 42.4 % (34.0-46.0); HGB 13.1 gm/dL (11.4-16.0); Lymphocytes # (A) 3.4 k/uL (1.0-4.8); Lymphocytes % (A) 28 %; MCH 25.7 pg (25.0-35.0); MCV 82.8 fL (80.0-100.0); Mean Platelet Volume 8.8; Monocytes # (A) 0.6 k/uL (0-1.0); Monocytes % (A) 5 %; Neutrophils # (A) 7.7 k/uL (1.3-7.7); Neutrophils % (A) 62 %; Platelet Count 322 k/uL (150-450); RBC 5.11 m/uL (3.80-5.40); WBC 12.4 k/uL (3.8-10.6)
[2019-01-03 16:56] LABS: Cholesterol 188 mg/dL (0-200)
[2019-01-03 16:57] LABS: ALT 21 U/L (8-44); AST 23 U/L (13-35); Albumin/Globulin Ratio 1.96 (1.60-3.17); Alkaline Phosphatase 90 U/L (41-126); Calcium 9.4 mg/dL (8.7-10.3); Carbon Dioxide 19.9 mmol/L (21.6-31.8); Chloride 108 mmol/L (96-109); Globulin 2.3 g/dL (1.6-3.3); Glucose 179 mg/dL (70-110); Potassium 4.2 mmol/L (3.5-5.5); Sodium 137 mmol/L (135-145); Total Bilirubin 0.3 mg/dL (0.3-1.2); Total Protein 6.8 g/dL (6.2-8.2)
[2019-01-03 18:31] LABS: Hemoglobin A1C 7.5 % (4.0-6.0)
== END ==
LOC: LABWHC1 10:41
PROVIDERS: ATTEND Family Medicine
DX: E11.9 Type 2 diabetes mellitus without complications (principal); I10 Essential (primary) hypertension; E78.5 Hyperlipidemia, unspecified
CPT/HCPCS: 36415; 80053; 80061; 82043; 82570; 83036; 83721; 85025

== ENCOUNTER → 2021-05-31 | Outpatient (CLI) | payer MEDICARE | LOC: CPPFTMAIN 13:18 | PROVIDERS: ATTEND Family Medicine | DX: J44.9 Chronic obstructive pulmonary disease, unspecified (principal); F17.200 Nicotine dependence, unspecified, uncomplicated; Z88.1 Allergy status to other antibiotic agents | CPT/HCPCS: 94060; 94726; 94729 ==

== ENCOUNTER 2021-08-17 10:12 | Emergency (ER) | payer MEDICARE ==
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
[2021-08-17] MEDS ORDERED: MORPHINE SULFATE 4 MG/ML SYRINGE IM STA (11:39)
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
--- NOTE | 2021-08-17 12:57 | XR ---
EXAMINATION TYPE: XR mandible complete DATE OF EXAM: 08/17/2021 COMPARISON: NONE HISTORY: Pain TECHNIQUE: 5 views of the mandible are submitted. FINDINGS: No displaced fracture. No obvious dislocation. No osseous lesion. IMPRESSION: Negative
[2021-08-17 13:10] VITALS: BP 104/71; PULSE 81; RESP 20; TEMP 98.1
[2021-08-17] MEDS ORDERED: ACET/COD 300 MG/30 MG STARTER PACK 6 TAB BTL PO STA (13:19)
[2021-08-17] MEDS ORDERED: HYDROmorphone 1 MG/ML 1 ML SYRINGE IM STA (13:19)
== END 2021-08-17 13:28 | disposition home or self-care (01) ==
LOC: EC 10:12
DX: S02.402A Zygomatic fracture, unspecified side, initial encounter for closed fracture (principal); S02.40DA Maxillary fracture, left side, initial encounter for closed fracture; E11.9 Type 2 diabetes mellitus without complications; E78.5 Hyperlipidemia, unspecified; I10 Essential (primary) hypertension; J45.909 Unspecified asthma, uncomplicated; F90.9 Attention-deficit hyperactivity disorder, unspecified type; F41.9 Anxiety disorder, unspecified; F31.9 Bipolar disorder, unspecified; F17.290 Nicotine dependence, other tobacco product, uncomplicated; F12.90 Cannabis use, unspecified, uncomplicated; Z79.84 Long term (current) use of oral hypoglycemic drugs; Z88.1 Allergy status to other antibiotic agents; Y04.8XXA Assault by other bodily force, initial encounter
CPT/HCPCS: 99284; 96372 ×2; 81025; 70110; 70486; 70450; J2270; J1170

== ENCOUNTER → 2022-01-03 | Outpatient (CLI) | payer MEDICARE ==
--- NOTE | 2022-01-03 07:51 | US ---
EXAMINATION TYPE: US abdomen limited DATE OF EXAM: 01/03/2022 COMPARISON: NONE CLINICAL HISTORY: 46-year-old female R10.11 RUQ ABDOMEN PAIN. Pain. Patient says she thinks that her gallbladder is inflamed. TECHNIQUE: Multiple sonographic images of the right upper quadrant are obtained. FINDINGS: EXAM MEASUREMENTS: Liver Length: 23.6 cm Gallbladder Wall: 0.2 cm CBD: 0.5 cm Right Kidney: 11.6 x 5.2 x 4.6 cm Curing Room Supervisor notes:Limited due to patient body habitus Pancreas: Only a small portion of the pancreatic body is seen. The head and tail are secured by bowel gas shadowing. Liver: Enlarged. Severely attenuating. The superficial visualized portions are echogenic. Extensive attenuation secondarily limits assessment for focal lesions. Gallbladder: No stones or wall thickening seen Evidence for sonographic Moura's sign: neg CBD: wnl Right Kidney: No hydronephrosis or masses seen. Limited detailed assessment due to large body habitu s. IMPRESSION: 1. Hepatomegaly (23.6 cm) with severe steatosis. Correlate with LFTs and lipid profile, and patient r isk factors. The extensive attenuation by the liver secondarily limits assessment for focal lesions. 2. No gallstones or biliary ductal dilatation. No ancillary findings of acute cholecystitis.
== END | disposition home or self-care (01) ==
LOC: RADUSWWP 07:05
PROVIDERS: ATTEND Family Medicine
DX: K76.0 Fatty (change of) liver, not elsewhere classified (principal); R16.0 Hepatomegaly, not elsewhere classified
CPT/HCPCS: 76705

== ENCOUNTER 2022-01-08 16:14 | Emergency (ER) | payer MEDICARE ==
[2022-01-08 16:27] VITALS: PULSE 89; RESP 16; TEMP 98.1
[2022-01-08] MEDS ORDERED: MORPHINE SULFATE 4 MG/ML SYRINGE IV STA (17:09)
[2022-01-08] MEDS ORDERED: ONDANSETRON 4 MG/2 ML VIAL IVP STA (17:09)
[2022-01-08] MEDS ORDERED: diphenhydrAMINE 50 MG/ML 1 ML VIAL IVP STA (17:09)
[2022-01-08] MEDS ORDERED: SODIUM CHLORIDE 0.9% 1,000 ML IV STA (17:09)
[2022-01-08] MEDS ORDERED: FAMOTIDINE 20 MG/2 ML VIAL IV STA (17:10)
--- NOTE | 2022-01-08 17:32 | ED ---
General Adult HPI - General Chief complaint: Abdominal Pain Stated complaint: Abd pain Time Seen by Provider: 01/08/22 16:58 Source: patient, RN notes reviewed, old records reviewed Mode of arrival: ambulatory Limitations: no limitations - History of Present Illness Initial comments: Patient is a 46-year-old female with past medical history remarkable for hypertension, diabetes, hyperlipidemia, chronic back pain secondary to surgery who was recently diagnosed with a fatty liver last week and has been attempting to take a low-fat diet presents emergency Department complaining of a multi day history of upper abdominal pain associated with nausea, vomiting, as well as intermittent diarrhea. She scribes emesis is nonbilious and nonbloody. States diarrhea is nonbloody. Denies any urinary complaints. His no dysuria or hematuria. Is currently on her menstrual period. Denies any lower abdominal pain. Denies any chest pain or shortness of breath. His no other acute complaint at this time. Does not believe she is . Presents over formerly [facility] for current symptoms. Discussed the pain as an achy, sharp sensation located in a belt distribution around her upper abdomen. No known palliative or provocative factors. - Related Data Home Medications Medication Instructions Recorded Confirmed DULoxetine HCL [Cymbalta] 120 mg PO DAILY 03/21/17 01/08/22 Albuterol Sulfate [Proair Hfa] 2 puff INHALATION RT-QID PRN 01/31/18 01/08/22 OLANZapine [ZyPREXA] 5 mg PO DAILY 01/31/18 01/08/22 Pregabalin [Lyrica] 200 mg PO TID 01/31/18 01/08/22 clonazePAM [KlonoPIN] 0.5 mg PO DAILY 01/31/18 01/08/22 Aspirin EC [Ecotrin Low Dose] 81 mg PO DAILY 01/08/22 01/08/22 Atorvastatin [Lipitor] 10 mg PO HS 01/08/22 01/08/22 Losartan Potassium 100 mg PO DAILY 01/08/22 01/08/22 OLANZapine [ZyPREXA] 10 mg PO HS 01/08/22 01/08/22 Omeprazole 40 mg PO DAILY 01/08/22 01/08/22 clonazePAM [KlonoPIN] 1.5 mg PO HS 01/08/22 01/08/22 glipiZIDE [Glucotrol] 5 mg PO BID 01/08/22 01/08/22 sitaGLIPtin PHOS/metFORMIN HCL 1 tab PO BID 01/08/22 01/08/22 [Janumet 50-1,000 mg Tablet] Previous Rx's Medication Instructions Recorded Famotidine [Pepcid] 20 mg PO DAILY 7 Days #7 tablet 01/08/22 Mag Hydrox/Al Hydrox/Simeth 30 ml PO BID PRN #300 ml 01/08/22 [Maalox] Ondansetron [Zofran ODT] 4 mg PO Q8HR PRN 3 Days #9 tab 01/08/22 Allergies Allergy/AdvReac Type Severity Reaction Status Date / Time ampicillin [From Unasyn] Allergy Rash/Hives Verified 01/08/22 17:40 erythromycin base Allergy Rash/Hives Verified 01/08/22 17:40 [From E-Mycin] sulbactam [From Unasyn] Allergy Rash/Hives Verified 01/08/22 17:40 Review of Systems ROS Statement: Those systems with pertinent positive or pertinent negative responses have been documented in the HPI. Review of Systems: CONST: Denies fever EYES: Denies blurry vision ENT: Denies nasal congestion C/V: Denies Chest pain RESP: Denies shortness of breath GI: Endorses abdominal pain. : Denies dysuria SKIN: Denies rash. MSK: Denies joint pain. NEURO: Denies headache ROS Other: All systems not noted in ROS Statement are negative. Past Medical History Past Medical History: Asthma, Diabetes Mellitus, Hyperlipidemia, Hypertension Additional Past Medical History / Comment(s): chronic back pain History of Any Multi-Drug Resistant Organisms: None Reported Past Surgical History: Back Surgery Additional Past Surgical History / Comment(s): spinal fusion, PAIN CLINIC PROCEDURE, blue tooth device in back Past Anesthesia/Blood Transfusion Reactions: Motion Sickness Past Psychological History: ADD/ADHD, Anxiety, Bipolar Smoking Status: Vaper Past Alcohol Use History: None Reported Past Drug Use History: Marijuana - Past Family History Mother Family Medical History: Deep Vein Thrombosis (DVT) General Exam - General Exam Comments Initial Comments: General: Appears in no acute distress. HEAD: Normal with no signs of head trauma. EYES: PERRLA, EOMI, conjunctiva normal, no discharge. ENT: Hearing grossly intact, normal oropharynx. RESPIRATORY: Clear breath sounds bilaterally. No wheezes, rales, or rhonchi. C/V: Regular rate and rhythm. S1 and S2 auscultated, no edema, peripheral pulses 2+ and intact throughout ABD: Abdomen is soft, nondistended. Patient is tender to palpation epigastric and right upper quadrants. No lower abdominal tenderness. No guarding. No rebound tenderness. No peritoneal signs. No CVA tenderness to percussion. EXT: Normal range of motion, no obvious deformity. Patient has chronic lumbar spine tenderness to palpation. SKIN: No rashes or lesions observed on exposed skin. NEURO: Alert and oriented 4. Limitations: no limitations Course Vital Signs 01/08/22 16:24 Temperature 98.1 F Pulse Rate 89 Respiratory 16 Rate Blood Pressure 118/76 O2 Sat by Pulse 98 Oximetry Medical Decision Making - Medical Decision Making Based on the patient's presentation and physical exam, I'm concerned for an a cute intra-abdominal process for her current complaints. Therefore we will obtain abdominal laboratory studies. Also obtain an ultrasound of the gallbladder. She'll be sent directly treated with a 1 L fluid bolus as well as IV Zofran, IV, famotidine, Benadryl. Patient was in agreement this plan. Screening EKG and troponin were also be obtained to rule out possibility of atypical presentation of ACS, as the patient has obese, female, and nearly 49 years old complaining of epigastric pain with nausea and vomiting. She was in agreement this plan. EKG showed no signs of acute ischemia. Laboratory studies were remarkable for mild leukocytosis of 12 which is likely reactive. The remainder of the labs are unremarkable including a negative troponin and a negative pain to test. L1 ultrasound was within normal limits for the patient's gallbladder, however it does appear she has hepatocellular disease which is known. On reevaluation, patient still complaining of mild pain. As her workup is relatively benign plus far, I did offer her CT of the abdomen and pelvis which she accepted. CT imaging was relatively unremarkable. Resolution area and the left proximal femur, however she has no tenderness to palpation at the site. I did recommend x-raying the future if she develops any pain. Her postsurgical changes of the spine. There is hepatic steatosis which is known. Due to the finding regarding her femur, we will obtain a femur x-ray. She was in agreement this plan.Femur has lucency likely representing a regular bone marrow with superimposed bony islands. No further workup is recommended. Updated the patient results of x-ray. On reevaluation, patient is feeling improved. She is tolerating oral intake. I discussed the findings with her. I believe it is safer to be discharged home with follow-up. She likely will require an EGD outpatient, and she expressed understanding. We will see her PCP for GI referral. I will provide the patient with a prescription for Maalox, famotidine, ODT Zofran. I instructed the patient to follow up with their PCP in the next 3 days. I explained that the patient should return to the emergency department if they experience any worsening symptoms. Strict return precautions were discussed with the patient. The patient expressed understanding of these instructions. I answered all questions that the patient had. The patient was discharged home in good condition with their prescriptions and follow up information. - Lab Data Result diagrams: 01/08/22 17:29 01/08/22 17:29 Lab Results 01/08/22 01/08/22 01/08/22 Range/Units 17:29 17:29 17:29 WBC 12.4 H (3.8-10.6) k/uL RBC 5.27 (3.80-5.40) m/uL Hgb 13.0 (11.4-16.0) gm/dL Hct 41.0 (34.0-46.0) % MCV 77.8 L (80.0-100.0) fL MCH 24.6 L (25.0-35.0) pg MCHC 31.6 (31.0-37.0) g/dL RDW 16.8 H (11.5-15.5) % Plt Count 323 (150-450) k/uL MPV 9.6 Neutrophils % 63 % Lymphocytes % 28 % Monocytes % 5 % Eosinophils % 1 % Basophils % 0 % Neutrophils # 7.8 H (1.3-7.7) k/uL Lymphocytes # 3.5 (1.0-4.8) k/uL Monocytes # 0.6 (0-1.0) k/uL Eosinophils # 0.1 (0-0.7) k/uL Basophils # 0.1 (0-0.2) k/uL Hypochromasia Slight Anisocytosis Slight Microcytosis Slight PT (9.0-12.0) sec INR (<1.2) APTT (22.0-30.0) sec Sodium 136 L (137-145) mmol/L Potassium 3.9 (3.5-5.1) mmol/L Chloride 107 (98-107) mmol/L Carbon Dioxide 19 L (22-30) mmol/L Anion Gap 10 mmol/L BUN 9 (7-17) mg/dL Creatinine 0.66 (0.52-1.04) mg/dL Est GFR (CKD-EPI)AfAm >90 (>60 ml/min/1.73 sqM) Est GFR (CKD-EPI)NonAf >90 (>60 ml/min/1.73 sqM) Glucose 109 H (74-99) mg/dL Plasma Lactic Acid Yeyo 1.0 (0.7-2.0) mmol/L Calcium 9.2 (8.4-10.2) mg/dL Total Bilirubin 0.5 (0.2-1.3) mg/dL AST 23 (14-36) U/L ALT 15 (4-34) U/L Alkaline Phosphatase 93 (38-126) U/L Troponin I (0.000-0.034) ng/mL Total Protein 7.4 (6.3-8.2) g/dL Albumin 4.3 (3.5-5.0) g/dL Amylase 55 (30-110) U/L Lipase 66 (23-300) U/L HCG, Qual Not Detected 01/08/22 01/08/22 Range/Units 17:29 17:29 WBC (3.8-10.6) k/uL RBC (3.80-5.40) m/uL Hgb (11.4-16.0) gm/dL Hct (34.0-46.0) % MCV (80.0-100.0) fL MCH (25.0-35.0) pg MCHC (31.0-37.0) g/dL RDW (11.5-15.5) % Plt Count (150-450) k/uL MPV Neutrophils % % Lymphocytes % % Monocytes % % Eosinophils % % Basophils % % Neutrophils # (1.3-7.7) k/uL Lymphocytes # (1.0-4.8) k/uL Monocytes # (0-1.0) k/uL Eosinophils # (0-0.7) k/uL Basophils # (0-0.2) k/uL Hypochromasia Anisocytosis Microcytosis PT 11.3 (9.0-12.0) sec INR 1.1 (<1.2) APTT 28.6 (22.0-30.0) sec Sodium (137-145) mmol/L Potassium (3.5-5.1) mmol/L Chloride (98-107) mmol/L Carbon Dioxide (22-30) mmol/L Anion Gap mmol/L BUN (7-17) mg/dL Creatinine (0.52-1.04) mg/dL Est GFR (CKD-EPI)AfAm (>60 ml/min/1.73 sqM) Est GFR (CKD-EPI)NonAf (>60 ml/min/1.73 sqM) Glucose (74-99) mg/dL Plasma Lactic Acid Yeyo (0.7-2.0) mmol/L Calcium (8.4-10.2) mg/dL Total Bilirubin (0.2-1.3) mg/dL AST (14-36) U/L ALT (4-34) U/L Alkaline Phosphatase (38-126) U/L Troponin I <0.012 (0.000-0.034) ng/mL Total Protein (6.3-8.2) g/dL Albumin (3.5-5.0) g/dL Amylase (30-110) U/L Lipase (23-300) U/L HCG, Qual - EKG Data -: EKG Interpreted by Me EKG Comments: 12-lead Electrocardiogram Interpretation Note EKG was reviewed and interpreted by myself. 12-lead ECG performed at 1837 is interpreted by me as revealing normal sinus rhythm at a rate of 60 beats per minute. [place] is normal. [place] interval is 169 ms, QRS duration is 108 ms, QTc is 440 ms.. There were no ST or T wave abnormalities to suggest myocardial ischemia or injury. R wave progression across the precordium was satisfactory. By my interpretation this EKG is non-diagnostic for acute ischemia. Disposition Clinical Impression: Abdominal pain of unknown etiology, Nausea and vomiting Disposition: HOME SELF-CARE Condition: Good Prescriptions: Mag Hydrox/Al Hydrox/Simeth [Maalox] 30 ml PO BID PRN #300 ml PRN Reason: Dyspepsia Famotidine [Pepcid] 20 mg PO DAILY 7 Days #7 tablet Ondansetron [Zofran ODT] 4 mg PO Q8HR PRN 3 Days #9 tab PRN Reason: Nausea Is patient prescribed a controlled substance at d/c from ED?: No Referrals: Gabriel Lopez [Primary Care Provider] - 1-2 days
[2022-01-08 17:40] LABS: Anisocytosis Slight; Basophils # (A) 0.1 k/uL (0-0.2); Basophils % (A) 0 %; Eosinophils # (A) 0.1 k/uL (0-0.7); Eosinophils % (A) 1 %; Hypochromasia Slight; Lymphocytes # (A) 3.5 k/uL (1.0-4.8); Lymphocytes % (A) 28 %; MCH 24.6 pg (25.0-35.0); MCHC 31.6 g/dL (31.0-37.0); MCV 77.8 fL (80.0-100.0); Mean Platelet Volume 9.6; Microcytosis Slight; Monocytes # (A) 0.6 k/uL (0-1.0); Monocytes % (A) 5 %; Neutrophils # (A) 7.8 k/uL (1.3-7.7); Neutrophils % (A) 63 %; Platelet Count 323 k/uL (150-450); RBC 5.27 m/uL (3.80-5.40); RDW 16.8 % (11.5-15.5); WBC 12.4 k/uL (3.8-10.6)
[2022-01-08 17:55] LABS: ALT 15 U/L (4-34); AST 23 U/L (14-36); African American GFR (CKD) >90 (>60 ml/min/1.73 sqM); Albumin 4.3 g/dL (3.5-5.0); Alkaline Phosphatase 93 U/L (38-126); Amylase 55 U/L (30-110); Anion Gap 10 mmol/L; Blood Urea Nitrogen 9 mg/dL (7-17); Calcium 9.2 mg/dL (8.4-10.2); Carbon Dioxide 19 mmol/L (22-30); Chloride 107 mmol/L (98-107); Glucose 109 mg/dL (74-99); Lipase 66 U/L (23-300); Non-African American GFR(CKD) >90 (>60 ml/min/1.73 sqM); Sodium 136 mmol/L (137-145); Total Bilirubin 0.5 mg/dL (0.2-1.3); Total Protein 7.4 g/dL (6.3-8.2)
[2022-01-08 17:56] LABS: Potassium 3.9 mmol/L (3.5-5.1)
[2022-01-08 18:03] LABS: INR 1.1 (<1.2); Partial Thromboplastin Time 28.6 sec (22.0-30.0); Prothrombin Time 11.3 sec (9.0-12.0)
[2022-01-08 18:05] LABS: HCG,Qualitative Serum Not Detected
--- NOTE | 2022-01-08 18:55 | US ---
EXAMINATION TYPE: US gallbladder DATE OF EXAM: 01/08/2022 COMPARISON: NONE CLINICAL HISTORY: RUQ abd pain. pt in EC 5 days ago and US showed grossly enlarged liver, pt started low fat diet and is having increasing pain today EXAM MEASUREMENTS: Liver Length: 24.9 cm Gallbladder Wall: 0.2 cm CBD: 0.6 cm Right Kidney: 11.7 x 4.6 x 4.5 cm due to large habitus and bowel gas, imaging is limited Pancreas: areas seen appear wnl Liver: heterogeneous and very difficult to penetrate, grossly enlarged Gallbladder: no evidence of wall thickening or evidence of pericholecystic fluid. Common bile duct i s within normal limits. Evidence for sonographic Moura's sign: no CBD: wnl Right Kidney: Visualized portions are within normal limits. IMPRESSION: 1. Limited exam secondary to body habitus and bowel gas. 2. Hepatocellular disease most commonly related to hepatic steatosis.
--- NOTE | 2022-01-08 19:38 | CT ---
EXAMINATION TYPE: CT abdomen pelvis w con CT DLP: 2225.6 mGycm, Automated exposure control for dose reduction was used. DATE OF EXAM: 01/08/2022 7:20 PM COMPARISON: None. CLINICAL INDICATION:Female, 46 years old with history of abdominal pain, acute, nonlocalized; RLQ arik n. TECHNIQUE: Standard CT of the abdomen and pelvis following the administration of 100 cc of Isovue 3 00 IV contrast material. Coronal and sagittal reformats were performed. FINDINGS: LOWER CHEST: Unremarkable ABDOMEN LIVER: Diffusely hypoattenuating parenchyma. GALLBLADDER AND BILE DUCTS: Unremarkable. PANCREAS: Unremarkable. SPLEEN: Unremarkable. ADRENAL GLANDS: Unremarkable. KIDNEYS AND URETERS: No evidence of hydronephrosis or renal calculus. The ureters are unremarkable. PELVIS BLADDER: Unremarkable REPRODUCTIVE: Unremarkable. ABDOMEN & PELVIS STOMACH AND BOWEL: The appendix is visualized and air-filled. No evidence of bowel obstruction. PERITONEUM: No evidence of pneumoperitoneum or free fluid. VASCULATURE: No evidence of aortic aneurysm. MUSCULOSKELETAL: No acute osseous abnormalities, fixation hardware involving L3-L4 and L5 with keyona ctomy changes at L3-L4. Stimulator device entering thecal sac at the level of T12-L1. There is signif icant degeneration changes at L2-L3 adjoining endplates. Subtle lucency with calcification in the pro ximal left femur. LYMPH NODES: No gross evidence for lymphadenopathy. SOFT TISSUE/ABDOMINAL WALL: Fat filled umbilical hernia measuring 11 mm at the neck. IMPRESSION: 1. No evidence of acute abdominal process. 2. Normal-appearing appendix, no evidence hydronephrosis or obstructing calculus. 3. Lucent area within the left proximal femur with calcifications. Correlate with clinical radiograph s of the left proximal femur. 4. Postsurgical changes of the spine. 5. Hepatic steatosis
--- NOTE | 2022-01-08 20:47 | XR ---
EXAMINATION TYPE: XR femur LT DATE OF EXAM: 01/08/2022 8:30 PM INDICATION: Patient age:Female; 46 years old; Reason for study: lucency in femur; COMPARISON: CT same day. TECHNIQUE: The left femur was examined in 3 projections. FINDINGS: Lucency seen on prior CT with in the proximal femur is not as well delineated on radiograp hy. The punctate calcifications with irregular borders are seen however . No evidence of acute osseou s pathology, joint dislocation, or soft tissue swelling IMPRESSION: Lucency likely representing regular bone marrow with superimposed with bony islands. No further quinton p is recommended.
[2022-01-08 21:12] VITALS: BP 139/72
== END 2022-01-08 21:25 | disposition home or self-care (01) ==
LOC: EC 16:14
DX: R10.11 Right upper quadrant pain (principal); R10.13 Epigastric pain; R11.2 Nausea with vomiting, unspecified; E11.9 Type 2 diabetes mellitus without complications; I10 Essential (primary) hypertension; J45.909 Unspecified asthma, uncomplicated; E78.5 Hyperlipidemia, unspecified; F31.9 Bipolar disorder, unspecified; F41.9 Anxiety disorder, unspecified; F17.290 Nicotine dependence, other tobacco product, uncomplicated; F12.90 Cannabis use, unspecified, uncomplicated; Z79.84 Long term (current) use of oral hypoglycemic drugs; Z79.82 Long term (current) use of aspirin; Z79.51 Long term (current) use of inhaled steroids; Z79.899 Other long term (current) drug therapy
CPT/HCPCS: 36415; 93005; 80053; 82150; 83605; 83690; 84484; 85025; 85610; 85730; 84703; 73552; 76705; 74177; 99284; 96374; 96375 ×3; 96361; J2270; J1200; J2405; Q9967

== ENCOUNTER 2022-04-21 12:01 | Inpatient (IN) | payer MEDICARE ==
--- NOTE | 2022-04-21 12:36 | ED ---
General Adult HPI - General Chief complaint: Altered Mental Status Stated complaint: Abd Pain Time Seen by Provider: 04/21/22 12:02 Source: EMS Mode of arrival: EMS Limitations: no limitations - History of Present Illness Initial comments: Dictation was produced using Nub[employer] dictation software. please excuse any grammatical, word or spelling errors. Chief Complaint: 47-year-old female presents to the emergency department for altered mental status History of Present Illness: An is a 47-year-old female she is unable to provide history of present illness. HPI obtained from the nurse received report from EMS. Patient was brought to the emergency department for evaluation of altered mental status. There is concern that patient overdosed on a substance. It is unclear what substances patient may have taken and at what time. Patient allegedly has been exhibiting signs of suicidal behavior including cutting her left anterior forearm to try to hurt herself. Unable to obtain ROS secondary to patient's mental status PHYSICAL EXAM: General Impression: Alert and oriented x1/4, patient keeps saying 74, not in acute distress, diaphoretic HEENT: Normocephalic atraumatic, extra-ocular movements intact, pupils equal and reactive to light bilaterally, mucous membranes moist. Cardiovascular: Heart regular rate and rhythm Chest: no retractions, no tachypnea Abdomen: abdomen soft, non-tender, non-distended, no organomegaly Musculoskeletal: Pulses present and equal in all extremities, no peripheral edema Motor: no focal deficits noted Neurological: CN II-XII grossly intact, no focal motor or sensory deficits noted, pupils equal round reactive to light measuring approximately 4 mm, no hyperreflexia, no cogwheel rigidity, no clonus Skin: Mildly diaphoretic, multiple linear lacerations to the left anterior forearm ED course: 47 y Old female with alleged recent suicidal behavior presents to the ER for altered mental status. There is concern for overdose on some sort of substance. Patient does not have a clear-cut toxidrome on physical examination. There is suspicion of some bathroom a medical versus anticholinergic toxidrome. Vital signs upon arrival are within acceptable limits. EKG does show mild widening of the QRS with a QRS duration of 121. Recent EKG shows that patient's QRS is normally narrow. Patient's medications were reviewed. According to chart review patient is on antidepressants, antidiabetics, benzodiazepine. EMS found a bottle of baclofen at the bedside. There is suspicion of baclofen toxicity. EKG interpretation: Ventricular rate continues, sinus rhythm, DC interval 154, Q is 121, QTc 434.. No DC prolongation, no QTC prolongation, no ST or T-wave changes noted. EKG compared to 01/08/2022 showing no changes. Overall, this EKG is nonspecific Laboratory evaluation obtained. Leukocytosis of 19.9. Coag panel is unremarkable. Venous blood gas does not show any acidosis. Metabolic panel shows no significant acidosis. Lactic acid level was 3.1. Rest of abdominal labs metabolic panel is unremarkable. Toxicology labs are negative. Negative for salicylates, acetaminophen serum alcohol. Patient is no significant acidosis. Patient observed in emergency department. She was seen ambulating to the bathroom with assistance. Patient over still altered. Patient will be admitted for further medical monitoring monitoring and consultation to psychiatry for suspected suicidal overdose. Tetanus updated to treat lacerations. Suture repair not indicated at this time given and it is unclear whether lacerations occurred. - Related Data Home Medications Medication Instructions Recorded Confirmed DULoxetine HCL [Cymbalta] 120 mg PO DAILY 03/21/17 04/21/22 Albuterol Sulfate [Proair Hfa] 2 puff INHALATION RT-QID PRN 01/31/18 04/21/22 OLANZapine [ZyPREXA] 5 mg PO DAILY 01/31/18 04/21/22 Pregabalin [Lyrica] 200 mg PO TID 01/31/18 04/21/22 clonazePAM [KlonoPIN] 0.5 mg PO DAILY 01/31/18 04/21/22 Aspirin EC [Ecotrin Low Dose] 81 mg PO DAILY 01/08/22 04/21/22 Atorvastatin [Lipitor] 10 mg PO HS 01/08/22 04/21/22 Losartan Potassium 100 mg PO DAILY 01/08/22 04/21/22 OLANZapine [ZyPREXA] 10 mg PO HS 01/08/22 04/21/22 Omeprazole 40 mg PO DAILY 01/08/22 04/21/22 clonazePAM [KlonoPIN] 1.5 mg PO HS 01/08/22 04/21/22 glipiZIDE [Glucotrol] 5 mg PO BID 01/08/22 04/21/22 sitaGLIPtin PHOS/metFORMIN HCL 1 tab PO BID 01/08/22 04/21/22 [Janumet 50-1,000 mg Tablet] Baclofen [Lioresal] 20 mg PO TID PRN 04/21/22 04/21/22 Allergies Allergy/AdvReac Type Severity Reaction Status Date / Time ampicillin [From Unasyn] Allergy Rash/Hives Verified 04/21/22 14:08 erythromycin base Allergy Rash/Hives Verified 04/21/22 14:08 [From E-Mycin] sulbactam [From Unasyn] Allergy Rash/Hives Verified 04/21/22 14:08 Review of Systems ROS Statement: Those systems with pertinent positive or pertinent negative responses have been documented in the HPI. ROS Other: All systems not noted in ROS Statement are negative. Past Medical History Past Medical History: Asthma, Diabetes Mellitus, Hyperlipidemia, Hypertension Additional Past Medical History / Comment(s): chronic back pain History of Any Multi-Drug Resistant Organisms: None Reported Past Surgical History: Back Surgery Additional Past Surgical History / Comment(s): spinal fusion, PAIN CLINIC PROCEDURE, blue tooth device in back Past Anesthesia/Blood Transfusion Reactions: Motion Sickness Past Psychological History: ADD/ADHD, Anxiety, Bipolar Smoking Status: Vaper Past Alcohol Use History: None Reported Past Drug Use History: Marijuana - Past Family History Mother Family Medical History: Deep Vein Thrombosis (DVT) General Exam Limitations: no limitations Course Vital Signs 04/21/22 04/21/22 04/21/22 12:13 13:40 14:32 Temperature 98.7 F Pulse Rate 97 104 H 71 Respiratory 18 18 Rate Blood Pressure 148/97 127/84 O2 Sat by Pulse 96 96 95 Oximetry Medical Decision Making - Lab Data Result diagrams: 04/21/22 12:43 04/21/22 12:43 Lab Results 04/21/22 04/21/22 04/21/22 Range/Units 12:37 12:43 12:43 WBC 19.9 H (3.8-10.6) k/uL RBC 5.06 (3.80-5.40) m/uL Hgb 12.8 (11.4-16.0) gm/dL Hct 40.3 (34.0-46.0) % MCV 79.8 L (80.0-100.0) fL MCH 25.2 (25.0-35.0) pg MCHC 31.6 (31.0-37.0) g/dL RDW 15.0 (11.5-15.5) % Plt Count 386 (150-450) k/uL MPV 9.5 Neutrophils % 79 % Lymphocytes % 15 % Monocytes % 4 % Eosinophils % 1 % Basophils % 1 % Neutrophils # 15.8 H (1.3-7.7) k/uL Lymphocytes # 2.9 (1.0-4.8) k/uL Monocytes # 0.8 (0-1.0) k/uL Eosinophils # 0.2 (0-0.7) k/uL Basophils # 0.1 (0-0.2) k/uL Hypochromasia Slight PT 11.1 (9.0-12.0) sec INR 1.0 (<1.2) APTT 26.8 (22.0-30.0) sec VBG pH (7.31-7.41) VBG pCO2 (37-51) mmHg VBG HCO3 (24-28) mmol/L Sodium (137-145) mmol/L Potassium (3.5-5.1) mmol/L Chloride (98-107) mmol/L Carbon Dioxide (22-30) mmol/L Anion Gap mmol/L BUN (7-17) mg/dL Creatinine (0.52-1.04) mg/dL Est GFR (CKD-EPI)AfAm (>60 ml/min/1.73 sqM) Est GFR (CKD-EPI)NonAf (>60 ml/min/1.73 sqM) Glucose (74-99) mg/dL POC Glucose (mg/dL) 154 H (70-110) mg/dL POC Glu Predictive Maintenance Technician ID Osorio eTe Osmolality (280-301) mosm/kg Lactic Ac Sepsis Rflx Plasma Lactic Acid Yeyo (0.7-2.0) mmol/L Calcium (8.4-10.2) mg/dL Magnesium (1.6-2.3) mg/dL Total Bilirubin (0.2-1.3) mg/dL AST (14-36) U/L ALT (4-34) U/L Alkaline Phosphatase (38-126) U/L Total Protein (6.3-8.2) g/dL Albumin (3.5-5.0) g/dL Salicylates mg/dL Acetaminophen ug/mL Serum Alcohol mg/dL 04/21/22 04/21/22 04/21/22 Range/Units 12:43 12:43 12:52 WBC (3.8-10.6) k/uL RBC (3.80-5.40) m/uL Hgb (11.4-16.0) gm/dL Hct (34.0-46.0) % MCV (80.0-100.0) fL MCH (25.0-35.0) pg MCHC (31.0-37.0) g/dL RDW (11.5-15.5) % Plt Count (150-450) k/uL MPV Neutrophils % % Lymphocytes % % Monocytes % % Eosinophils % % Basophils % % Neutrophils # (1.3-7.7) k/uL Lymphocytes # (1.0-4.8) k/uL Monocytes # (0-1.0) k/uL Eosinophils # (0-0.7) k/uL Basophils # (0-0.2) k/uL Hypochromasia PT (9.0-12.0) sec INR (<1.2) APTT (22.0-30.0) sec VBG pH 7.39 (7.31-7.41) VBG pCO2 39 (37-51) mmHg VBG HCO3 23 L (24-28) mmol/L Sodium 140 (137-145) mmol/L Potassium 4.5 (3.5-5.1) mmol/L Chloride 107 (98-107) mmol/L Carbon Dioxide 20 L (22-30) mmol/L Anion Gap 13 mmol/L BUN 13 (7-17) mg/dL Creatinine 0.56 (0.52-1.04) mg/dL Est GFR (CKD-EPI)AfAm >90 (>60 ml/min/1.73 sqM) Est GFR (CKD-EPI)NonAf >90 (>60 ml/min/1.73 sqM) Glucose 147 H (74-99) mg/dL POC Glucose (mg/dL) (70-110) mg/dL POC Glu Predictive Maintenance Technician ID Osmolality 295 (280-301) mosm/kg Lactic Ac Sepsis Rflx Plasma Lactic Acid Yeyo 3.1 H* (0.7-2.0) mmol/L Calcium 9.5 (8.4-10.2) mg/dL Magnesium 1.6 (1.6-2.3) mg/dL Total Bilirubin 0.4 (0.2-1.3) mg/dL AST 30 (14-36) U/L ALT 21 (4-34) U/L Alkaline Phosphatase 105 (38-126) U/L Total Protein 7.9 (6.3-8.2) g/dL Albumin 4.6 (3.5-5.0) g/dL Salicylates <1.0 mg/dL Acetaminophen <10.0 ug/mL Serum Alcohol <10 mg/dL 04/21/22 Range/Units 13:15 WBC (3.8-10.6) k/uL RBC (3.80-5.40) m/uL Hgb (11.4-16.0) gm/dL Hct (34.0-46.0) % MCV (80.0-100.0) fL MCH (25.0-35.0) pg MCHC (31.0-37.0) g/dL RDW (11.5-15.5) % Plt Count (150-450) k/uL MPV Neutrophils % % Lymphocytes % % Monocytes % % Eosinophils % % Basophils % % Neutrophils # (1.3-7.7) k/uL Lymphocytes # (1.0-4.8) k/uL Monocytes # (0-1.0) k/uL Eosinophils # (0-0.7) k/uL Basophils # (0-0.2) k/uL Hypochromasia PT (9.0-12.0) sec INR (<1.2) APTT (22.0-30.0) sec VBG pH (7.31-7.41) VBG pCO2 (37-51) mmHg VBG HCO3 (24-28) mmol/L Sodium (137-145) mmol/L Potassium (3.5-5.1) mmol/L Chloride (98-107) mmol/L Carbon Dioxide (22-30) mmol/L Anion Gap mmol/L BUN (7-17) mg/dL Creatinine (0.52-1.04) mg/dL Est GFR (CKD-EPI)AfAm (>60 ml/min/1.73 sqM) Est GFR (CKD-EPI)NonAf (>60 ml/min/1.73 sqM) Glucose (74-99) mg/dL POC Glucose (mg/dL) (70-110) mg/dL POC Glu Predictive Maintenance Technician ID Osmolality (280-301) mosm/kg Lactic Ac Sepsis Rflx Y Plasma Lactic Acid Yeyo (0.7-2.0) mmol/L Calcium (8.4-10.2) mg/dL Magnesium (1.6-2.3) mg/dL Total Bilirubin (0.2-1.3) mg/dL AST (14-36) U/L ALT (4-34) U/L Alkaline Phosphatase (38-126) U/L Total Protein (6.3-8.2) g/dL Albumin (3.5-5.0) g/dL Salicylates mg/dL Acetaminophen ug/mL Serum Alcohol mg/dL Critical Care Time Critical Care Time: Yes Total Critical Care Time: 33 Disposition Clinical Impression: Overdose Disposition: ADMITTED IP TO THIS [facility] Condition: Serious Referrals: None,Stated [Primary Care Provider] - 1-2 days Decision Time: 15:34
[2022-04-21 12:38] LABS: Glucose,Whole Blood 154 mg/dL (70-110)
[2022-04-21 12:52] LABS: Basophils # (A) 0.1 k/uL (0-0.2); Basophils % (A) 1 %; Eosinophils # (A) 0.2 k/uL (0-0.7); Eosinophils % (A) 1 %; HCT 40.3 % (34.0-46.0); HGB 12.8 gm/dL (11.4-16.0); Hypochromasia Slight; Lymphocytes # (A) 2.9 k/uL (1.0-4.8); Lymphocytes % (A) 15 %; MCH 25.2 pg (25.0-35.0); MCHC 31.6 g/dL (31.0-37.0); MCV 79.8 fL (80.0-100.0); Mean Platelet Volume 9.5; Monocytes # (A) 0.8 k/uL (0-1.0); Monocytes % (A) 4 %; Neutrophils # (A) 15.8 k/uL (1.3-7.7); Neutrophils % (A) 79 %; Platelet Count 386 k/uL (150-450); RBC 5.06 m/uL (3.80-5.40); WBC 19.9 k/uL (3.8-10.6)
--- NOTE | 2022-04-21 12:54 | CT ---
EXAMINATION TYPE: CT brain wo con DATE OF EXAM: 04/21/2022 COMPARISON: 08/17/2021 HISTORY: 47 year-old female altered mental status, confusion TECHNIQUE: Examination was done in axial plane without intravenous contrast. Coronal and sagittal r econstructions performed. CT DLP: 1182.4 mGycm Automated exposure control for dose reduction was used. FINDINGS: There is no evidence of acute intracranial hemorrhage, acute ischemic changes, mass, mass-effect, or extra-axial fluid collection. There is no effacement of cerebral sulci or basal subarachnoid cister ns. There is no hydrocephalus. There is no midline shift. García-white matter distinction is preserv ed. Paranasal sinuses and mastoid air cells are well pneumatized. Orbits and globes are intact. IMPRESSION: No acute intracranial abnormality seen.
[2022-04-21 13:03] LABS: ALT 21 U/L (4-34); AST 30 U/L (14-36); Acetaminophen <10.0 ug/mL; African American GFR (CKD) >90 (>60 ml/min/1.73 sqM); Albumin 4.6 g/dL (3.5-5.0); Alcohol <10 mg/dL; Alkaline Phosphatase 105 U/L (38-126); Anion Gap 13 mmol/L; Blood Urea Nitrogen 13 mg/dL (7-17); Calcium 9.5 mg/dL (8.4-10.2); Carbon Dioxide 20 mmol/L (22-30); Chloride 107 mmol/L (98-107); Glucose 147 mg/dL (74-99); Magnesium 1.6 mg/dL (1.6-2.3); Non-African American GFR(CKD) >90 (>60 ml/min/1.73 sqM); Potassium 4.5 mmol/L (3.5-5.1); Salicylate <1.0 mg/dL; Sodium 140 mmol/L (137-145); Total Bilirubin 0.4 mg/dL (0.2-1.3); Total Protein 7.9 g/dL (6.3-8.2)
[2022-04-21 13:04] LABS: Prothrombin Time 11.1 sec (9.0-12.0)
[2022-04-21 13:05] LABS: Partial Thromboplastin Time 26.8 sec (22.0-30.0)
[2022-04-21 13:05] LABS: VBG PH 7.39 (7.31-7.41)
[2022-04-21] MEDS ORDERED: MIDAZOLAM 1 MG/ML 5 ML VIAL IV STA (13:56)
[2022-04-21] MEDS ORDERED: ONDANSETRON 4 MG/2 ML VIAL IVP PRN (15:30)
[2022-04-21] MEDS ORDERED: NALOXONE 0.4 MG/ML 1 ML VIAL IV PRN (15:30)
[2022-04-21] MEDS ORDERED: DIPH,PERTUS(ACELL)TETVAC-LF 0.5 ML VIAL IM ONE (15:32)
[2022-04-21] MEDS ORDERED: LORazepam 2 MG/ML INJ IV PRN (15:44)
[2022-04-21] MEDS ORDERED: HALOPERIDOL LACTATE 5 MG/ML 1 ML VIAL IM PRN (15:45)
[2022-04-21] MEDS: SODIUM CHLORIDE 0.9% 1,000 ML IV SCH ×2 (16:00→22:56)
[2022-04-21] MEDS ORDERED: ALBUTEROL HFA INHALER INHALATION PRN (16:02)
[2022-04-21] MEDS: INSULIN ASPART (NovoLOG) 100 UNIT/ML VIAL SQ SCH ×2 (18:15→22:55)
[2022-04-21 19:10] VITALS: RESP 16
--- NOTE | 2022-04-21 19:47 | HP ---
HISTORY AND PHYSICAL CHIEF COMPLAINT: Change in mental status. HISTORY OF PRESENT ILLNESS: This 47-year-old woman with a past medical history of asthma, diabetes mellitus and hyperlipidemia was admitted with a possible baclofen overdose. The patient was agitated. The patient was given . Currently the patient is sedated, unable to give a coherent history. Most of the history is taken from my discussion with staff and review of the chart at this time. PAST MEDICAL HISTORY: Reviewed. It includes asthma, diabetes mellitus, type 2. MEDICATIONS: Home medications are reviewed again, which include Glucotrol. Doses and the rest of the medications are reviewed. ALLERGIES: ALLERGIES include UNASYN; reviewed. Family history, social history, review of systems could not be taken because of the change in mental status. PHYSICAL EXAMINATION: Pulse is 104, blood pressure 127/84, respiration 18. HEENT: Conjunctivae normal. NECK: No jugular venous distention. CARDIOVASCULAR: S1, S2 muffled. RESPIRATION: Breath sounds diminished at the bases. Scattered rhonchi. ABDOMEN: Soft. LEGS: No edema. No swelling. NERVOUS SYSTEM: Patient is sedated. SKIN: No ulcer, rash, bleeding. JOINTS: No active deforming arthropathy. LABS: WBC ntd ASSESSMENT: 1. Possible baclofen overdose. 2. History of asthma. 3. Diabetes mellitus, type 2. 4. Hypertension. 5. Hyperlipidemia. 6. Increased white count. RECOMMENDATIONS AND DISCUSSION: In this 47-year-old woman who presented with multiple medical issues, at this time we will continue the current medications, symptomatic treatment, supportive treatment. Will contact Poison Control. Psychiatric evaluation. Resume the home medications. P.r.n. Ativan. Prognosis is guarded because of multiple complex medical issues. I would repeat labs tomorrow and continue to monitor. Further recommendations to follow. MMODL / IJN: [id number] / YVETTE
[2022-04-21] MEDS ORDERED: clonazePAM 0.5 MG TAB PO SCH (21:00)
[2022-04-21] MEDS ORDERED: ATORVASTATIN 10 MG TAB PO SCH (21:00)
[2022-04-21 22:45] LABS: Glucose,Whole Blood 146 mg/dL (70-110)
[2022-04-21] MEDS ORDERED: LORazepam 1 MG/0.5 ML VIAL IV PRN (22:53)
[2022-04-21] MEDS: PREGABALIN 100 MG CAP PO SCH (22:54)
[2022-04-21] MEDS: metFORMIN 500 MG TAB PO SCH (22:55)
[2022-04-21] MEDS: LINAGLIPTIN 5 MG TABLET PO SCH (22:55)
[2022-04-21] MEDS: glipiZIDE 5 MG TAB PO SCH (22:55)
[2022-04-22 07:24] LABS: Glucose,Whole Blood 113 mg/dL (70-110)
[2022-04-22] MEDS ORDERED: PANTOPRAZOLE 40 MG TABLET PO SCH (07:30)
[2022-04-22] MEDS: INSULIN ASPART (NovoLOG) 100 UNIT/ML VIAL SQ SCH ×2 (07:31→13:55)
[2022-04-22] MEDS ORDERED: LOSARTAN 50 MG TAB PO SCH (09:00)
[2022-04-22] MEDS ORDERED: clonazePAM 0.5 MG TAB PO SCH (09:00)
[2022-04-22] MEDS ORDERED: ASPIRIN 81 MG PO SCH (09:00)
[2022-04-22] MEDS ORDERED: DULoxetine HCL 60 MG CAPSULE.DR PO SCH (09:00)
[2022-04-22 09:03] LABS: Basophils # (A) 0.09 X 10*3/uL (0.00-0.10); Basophils % (A) 0.7 %; Eosinophils # (A) 0.19 X 10*3/uL (0.04-0.35); Eosinophils % (A) 1.4 %; HCT 38.8 % (37.2-46.3); HGB 11.7 g/dL (12.0-15.0); Immature Grans, Automated 0.4 %; Lymphocytes # (A) 4.52 X 10*3/uL (0.90-5.00); Lymphocytes % (A) 33.6 %; MCH 24.5 pg (27.0-32.0); MCHC 30.2 g/dL (32.0-37.0); MCV 81.2 fL (80.0-97.0); Monocytes # (A) 0.91 X 10*3/uL (0.20-1.00); Monocytes % (A) 6.8 %; NRBC Per 100 WBC 0 /100 WBCS (0.0-0.0); Neutrophils % (A) 57.1 %; Platelet Count 328 X 10*3/uL (140-440); RBC 4.78 X 10*6/uL (4.10-5.20); RDW 15.7 % (11.5-14.5); WBC 13.47 X 10*3/uL (4.50-10.00)
[2022-04-22 09:12] LABS: African American GFR (CKD) 118.7 (60.0-200.0); Anion Gap 10.9 mmol/L (10.00-18.00); BUN/Creat Ratio 16.71 Ratio (12.00-20.00); Blood Urea Nitrogen 11.7 mg/dL (9.0-27.0); Calcium 9.1 mg/dL (8.7-10.3); Carbon Dioxide 25.1 mmol/L (20.0-27.5); Non-African American GFR(CKD) 102.5 (60.0-200.0); Potassium 3.7 mmol/L (3.5-5.5)
[2022-04-22] MEDS: LINAGLIPTIN 5 MG TABLET PO SCH (09:53)
[2022-04-22] MEDS: PREGABALIN 100 MG CAP PO SCH (09:54)
[2022-04-22] MEDS: glipiZIDE 5 MG TAB PO SCH (09:54)
[2022-04-22] MEDS: metFORMIN 500 MG TAB PO SCH (09:54)
[2022-04-22] MEDS: SODIUM CHLORIDE 0.9% 1,000 ML IV SCH (09:55)
[2022-04-22 10:20] LABS: Bacteria,Urine Occasional /hpf; Mucus,Urine Many /hpf; RBC,Urine 30 /hpf (0-5); Squamous Epithelial Cell,Urine 20 /hpf (0-4); WBC,Urine 6 /hpf (0-5)
[2022-04-22 10:35] LABS: Appearance,Urine Cloudy (Clear); Bilirubin,Urine Negative (Negative); Blood,Urine Moderate (Negative); Color,Urine Yellow; Glucose,Urine (UA) 2+ (Negative); Ketones,Urine 1+ (Negative); Leukocyte Esterase,Urine Trace (Negative); Nitrite,Urine Negative (Negative); Protein,Urine 1+ (Negative); Specific Gravity,Urine 1.029 (1.001-1.035); Urobilinogen,Urine <2.0 mg/dL (<2.0)
[2022-04-22 12:12] VITALS: BP 123/83; PULSE 79; TEMP 98.1
[2022-04-22 12:26] LABS: Glucose,Whole Blood 113 mg/dL (70-110)
--- NOTE | 2022-04-22 13:26 | P.DS ---
Providers Date of admission: 04/21/22 15:30 Expected date of discharge: 04/22/22 Attending physician: Amanda Gannon Consults: 04/21/22 13:13 Consult Physician Routine Consulting Provider: Psychiatry - [facility] Psychiatry Consult Reason/Comments: overdose, suicidal behavior Do you want consulting provider notified?: Yes Primary care physician: Stated None Hospital Course: Final diagnosis Possible baclofen overdose History of asthma Diabetes mellitus, type II Hypertension Hyperlipidemia Increased white count Full code Discharge disposition Patient is being transferred in a stable condition with guarded prognosis [address] [place] [address] psychiatric unit for further evaluation. Patient will follow- up with Dr. Hopper in the outpatient setting upon discharge. Total time taken is greater than 35 minutes. Hospital course This is a 47-year-old female who was recently admitted for possible baclofen overdose. Patient was extremely agitated and then sedated and was being closely monitored. Patient is awake and alert today and reports to taking one may be two baclofen but did not overdose. Patient was also maintained on nothing by mouth diet and will resume diet as patient is more awake. Recommend continue with Accu-Cheks before meals and at bedtime and continue with sliding scale and home medications as ordered. Patient is medically stable and cleared for transfer to inpatient psychiatric unit for further evaluation. Currently no reports of chest pain or shortness of breath. Patient is afebrile. No reports of nausea or vomiting and patient is tolerating diet. Patient will be transferred to [address] [place] [address] psychiatric unit. Guarded prognosis. On exam vital signs are stable. Cardio S1, S2 are muffled. Respiratory system shows diminished breath sounds at the bases with no wheezing or rhonchi noted. Abdomen is soft and nontender. Nervous system shows diffuse weakness. Please refer to medication reconciliation sheet for a list of medications. The impression and plan of care has been dictated by Chloe Green, Nurse Practitioner as directed. Dr. Jagdeep MD I have performed a history and examination and MDM of this patient, discussed the same with the dictator, and agree with the dictator's assessment and plan as written ,documented as a scribe. Based on total visit time, I have performed more than 50% of the visit. Patient Condition at Discharge: Good Plan - Discharge Summary New Discharge Prescriptions: New INSULIN ASPART (NovoLOG) [NovoLOG (formulary)] 0 unit SQ ACHS each Continue DULoxetine HCL [Cymbalta] 120 mg PO DAILY Albuterol Sulfate [Proair Hfa] 2 puff INHALATION RT-QID PRN PRN Reason: Shortness Of Breath Pregabalin [Lyrica] 200 mg PO TID OLANZapine [ZyPREXA] 5 mg PO DAILY clonazePAM [KlonoPIN] 0.5 mg PO DAILY Atorvastatin [Lipitor] 10 mg PO HS clonazePAM [KlonoPIN] 1.5 mg PO HS glipiZIDE [Glucotrol] 5 mg PO BID Omeprazole 40 mg PO DAILY OLANZapine [ZyPREXA] 10 mg PO HS Aspirin EC [Ecotrin Low Dose] 81 mg PO DAILY Losartan Potassium 100 mg PO DAILY sitaGLIPtin PHOS/metFORMIN HCL [Janumet 50-1,000 mg Tablet] 1 tab PO BID Discontinued Baclofen [Lioresal] 20 mg PO TID PRN PRN Reason: Muscle Spasm Discharge Medication List DULoxetine HCL [Cymbalta] 120 mg PO DAILY 03/21/17 [History] Albuterol Sulfate [Proair Hfa] 2 puff INHALATION RT-QID PRN 01/31/18 [History] OLANZapine [ZyPREXA] 5 mg PO DAILY 01/31/18 [History] Pregabalin [Lyrica] 200 mg PO TID 01/31/18 [History] clonazePAM [KlonoPIN] 0.5 mg PO DAILY 01/31/18 [History] Aspirin EC [Ecotrin Low Dose] 81 mg PO DAILY 01/08/22 [History] Atorvastatin [Lipitor] 10 mg PO HS 01/08/22 [History] Losartan Potassium 100 mg PO DAILY 01/08/22 [History] OLANZapine [ZyPREXA] 10 mg PO HS 01/08/22 [History] Omeprazole 40 mg PO DAILY 01/08/22 [History] clonazePAM [KlonoPIN] 1.5 mg PO HS 01/08/22 [History] glipiZIDE [Glucotrol] 5 mg PO BID 01/08/22 [History] sitaGLIPtin PHOS/metFORMIN HCL [Janumet 50-1,000 mg Tablet] 1 tab PO BID 01/08/22 [History] INSULIN ASPART (NovoLOG) [NovoLOG (formulary)] 0 unit SQ ACHS each 04/22/22 [Rx] Follow up Appointment(s)/Referral(s): None,Stated [Primary Care Provider] - 1-2 days Activity/Diet/Wound Care/Special Instructions: Patient is medically stable and clear for transfer to inpatient psychiatric unit for further evaluation Discharge Disposition: TRANSFER TO PSYCH HOSP/UNIT
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
== END 2022-04-22 16:23 | disposition home or self-care (01) | DRG 918 ==
LOC: EC 12:01 → 5NMEDONC 15:30
PROVIDERS: ADMIT Hospitalist; ATTEND Hospitalist
DX: T42.8X1A Poisoning by antiparkinsonism drugs and other central muscle-tone depressants, accidental (unintentional), initial encounter (principal); F43.10 Post-traumatic stress disorder, unspecified; G89.29 Other chronic pain; M54.9 Dorsalgia, unspecified; F25.9 Schizoaffective disorder, unspecified; F90.9 Attention-deficit hyperactivity disorder, unspecified type; F31.9 Bipolar disorder, unspecified; I10 Essential (primary) hypertension; J45.909 Unspecified asthma, uncomplicated; E78.5 Hyperlipidemia, unspecified; E11.9 Type 2 diabetes mellitus without complications; D72.829 Elevated white blood cell count, unspecified; Z79.82 Long term (current) use of aspirin; Z79.84 Long term (current) use of oral hypoglycemic drugs; Z98.1 Arthrodesis status; Z88.1 Allergy status to other antibiotic agents
CPT/HCPCS: 36415; 70450; 80048; 80053; 80143; 80179; 80320; 81001; 82803; 83605; 83735; 83930; 85025; 85610; 85730; 90715; 93005; 96361; 96374; 96375; 99285

== ENCOUNTER 2022-08-24 15:39 | Emergency (ER) | payer MEDICARE ==
[2022-08-24 15:46] VITALS: RESP 18; TEMP 98.1
[2022-08-24] MEDS ORDERED: HYDROmorphone 0.5 MG/0.5 ML SYRINGE IVP STA ×2 (20:04→21:08)
[2022-08-24] MEDS ORDERED: ALBUTEROL NEBULIZED 2.5 MG/3 ML INHALATION STA (20:12)
[2022-08-24] MEDS ORDERED: methylPREDNISolone SOD SUCCI 125 MG/2 ML VIAL IV STA (20:12)
--- NOTE | 2022-08-24 20:20 | US ---
EXAMINATION TYPE: US abdomen limited DATE OF EXAM: 08/24/2022 COMPARISON: US: 01/08/22, CT: 01/08/22 CLINICAL HISTORY: RUQ pain. RUQ pain x 1 month, got worse today TECHNIQUE: Multiple sonographic images of the right upper quadrant are obtained. FINDINGS: EXAM MEASUREMENTS: Liver Length: 17.9 cm Gallbladder Wall: 0.27 cm CBD: Not visualized Right Kidney: 11.1 x 5.3 x 4.9 cm OFFICE MACHINES TEACHER NOTES: Pancreas: Parts visualized appear wnl Liver: Limited due to body habitus, difficult to penetrate Gallbladder: wnl Evidence for sonographic Moura's sign: No CBD: Not vis. Right Kidney: wnl IMPRESSION: No gallstones or dilated ducts. There is echogenic liver and consistent with some fatty infiltration. No free fluid. No significant change
[2022-08-24 20:23] LABS: Basophils # (A) 0.1 k/uL (0-0.2); Basophils % (A) 1 %; Eosinophils # (A) 0.3 k/uL (0-0.7); Eosinophils % (A) 2 %; HCT 37.5 % (34.0-46.0); HGB 12.1 gm/dL (11.4-16.0); Hypochromasia Slight; Lymphocytes # (A) 3.9 k/uL (1.0-4.8); Lymphocytes % (A) 25 %; MCH 24.4 pg (25.0-35.0); MCHC 32.2 g/dL (31.0-37.0); MCV 75.9 fL (80.0-100.0); Mean Platelet Volume 10.1; Microcytosis Slight; Monocytes # (A) 0.7 k/uL (0-1.0); Monocytes % (A) 5 %; Neutrophils # (A) 10.5 k/uL (1.3-7.7); Neutrophils % (A) 66 %; Platelet Count 338 k/uL (150-450); RBC 4.94 m/uL (3.80-5.40); WBC 15.8 k/uL (3.8-10.6)
[2022-08-24 20:53] LABS: ALT 27 U/L (4-34); AST 28 U/L (14-36); African American GFR (CKD) >90 (>60 ml/min/1.73 sqM); Albumin 4.5 g/dL (3.5-5.0); Alkaline Phosphatase 113 U/L (38-126); Anion Gap 14 mmol/L; Blood Urea Nitrogen 10 mg/dL (7-17); Calcium 9.2 mg/dL (8.4-10.2); Carbon Dioxide 22 mmol/L (22-30); Chloride 99 mmol/L (98-107); Glucose 198 mg/dL (74-99); Lipase 195 U/L (23-300); Non-African American GFR(CKD) >90 (>60 ml/min/1.73 sqM); Potassium 4.1 mmol/L (3.5-5.1); Sodium 135 mmol/L (137-145); Total Bilirubin 0.5 mg/dL (0.2-1.3); Total Protein 7.3 g/dL (6.3-8.2)
--- NOTE | 2022-08-24 21:36 | XR ---
EXAMINATION TYPE: XR chest 2V DATE OF EXAM: 08/24/2022 COMPARISON: 03/21/2017 HISTORY: Cough and wheezing TECHNIQUE: FINDINGS: Heart is normal. Lungs are clear of infiltrate. No heart failure. There is neural stimulato r in the thoracic spine. There no hilar masses. There is 20% wedging of a mid thoracic vertebra uncha nged. IMPRESSION: No active cardiopulmonary disease. No change.
[2022-08-24] MEDS ORDERED: ACET/COD 300 MG/30 MG STARTER PACK 6 TAB BTL PO STA (22:04)
--- NOTE | 2022-08-24 22:10 | ED ---
Abdominal Pain HPI - General Chief Complaint: Abdominal Pain Stated Complaint: ABD Pain Time Seen by Provider: 08/24/22 19:14 Source: patient Mode of arrival: wheelchair - History of Present Illness Initial Comments: Patient is a 47-year-old female with past medical history of hypertension, hyperlipidemia, diabetes mellitus, and asthma who presents to the emergency department with a chief complaint of abdominal pain. Patient reports pain in the right upper abdomen intermittently for the past month which got worse at approximately 2 AM. The pain woke patient up from sleep. Describes it as an aching in the right upper abdomen. No radiation. Patient unaware if pain is re lated to food intake although she does admit to eating fried chicken fingers last night before bed. She denies fever, chills, nausea, vomiting, diarrhea. Denies urinary symptoms. Reports normal bowel movements, last one this morning, nonbloody. Denies alcohol use and drug use. Upon questioning patient also admits to dry cough and congestion for the past few days. Patient states she uses her rescue albuterol inhaler several times a day. She did not take any medication for asthma. She denies chest pain shortness of breath. - Related Data Home Medications Medication Instructions Recorded Confirmed DULoxetine HCL [Cymbalta] 120 mg PO DAILY 03/21/17 04/21/22 Albuterol Sulfate [Proair Hfa] 2 puff INHALATION RT-QID PRN 01/31/18 04/21/22 OLANZapine [ZyPREXA] 5 mg PO DAILY 01/31/18 04/21/22 Pregabalin [Lyrica] 200 mg PO TID 01/31/18 04/21/22 clonazePAM [KlonoPIN] 0.5 mg PO DAILY 01/31/18 04/21/22 Aspirin EC [Ecotrin Low Dose] 81 mg PO DAILY 01/08/22 04/21/22 Atorvastatin [Lipitor] 10 mg PO HS 01/08/22 04/21/22 Losartan Potassium 100 mg PO DAILY 01/08/22 04/21/22 OLANZapine [ZyPREXA] 10 mg PO HS 01/08/22 04/21/22 Omeprazole 40 mg PO DAILY 01/08/22 04/21/22 clonazePAM [KlonoPIN] 1.5 mg PO HS 01/08/22 04/21/22 glipiZIDE [Glucotrol] 5 mg PO BID 01/08/22 04/21/22 sitaGLIPtin PHOS/metFORMIN HCL 1 tab PO BID 01/08/22 04/21/22 [Janumet 50-1,000 mg Tablet] Previous Rx's Medication Instructions Recorded INSULIN ASPART (NovoLOG) [NovoLOG 0 unit SQ ACHS each 04/22/22 (formulary)] predniSONE 50 mg PO DAILY #5 tab 08/24/22 Allergies Allergy/AdvReac Type Severity Reaction Status Date / Time ampicillin [From Unasyn] Allergy Rash/Hives Verified 08/24/22 15:46 erythromycin base Allergy Rash/Hives Verified 08/24/22 15:46 [From E-Mycin] sulbactam [From Unasyn] Allergy Rash/Hives Verified 08/24/22 15:46 Review of Systems ROS Statement: Those systems with pertinent positive or pertinent negative responses have been documented in the HPI. ROS Other: All systems not noted in ROS Statement are negative. Past Medical History Past Medical History: Asthma, Diabetes Mellitus, Hyperlipidemia, Hypertension Additional Past Medical History / Comment(s): chronic back pain History of Any Multi-Drug Resistant Organisms: None Reported Past Surgical History: Back Surgery Additional Past Surgical History / Comment(s): spinal fusion, PAIN CLINIC PROCEDURE, blue tooth device in back Past Anesthesia/Blood Transfusion Reactions: Motion Sickness Past Psychological History: ADD/ADHD, Anxiety, Bipolar Smoking Status: Vaper Past Alcohol Use History: None Reported Past Drug Use History: Marijuana - Past Family History Mother Family Medical History: Deep Vein Thrombosis (DVT) General Exam General appearance: alert, in no apparent distress Head exam: Present: atraumatic, normocephalic, normal inspection Eye exam: Present: normal appearance, PERRL, EOMI. Absent: scleral icterus, conjunctival injection, periorbital swelling Respiratory exam: Present: normal lung sounds bilaterally, wheezes. Absent: respiratory distress, rales, rhonchi, stridor, chest wall tenderness Cardiovascular Exam: Present: regular rate, normal rhythm, normal heart sounds. Absent: systolic murmur, diastolic murmur, rubs, gallop, clicks GI/Abdominal exam: Present: soft, tenderness (RUQ. positive moura), normal bowel sounds. Absent: distended, guarding, rebound, rigid Neurological exam: Present: alert, oriented X3, CN II-XII intact Psychiatric exam: Present: normal affect, normal mood Skin exam: Present: warm, dry, intact, normal color. Absent: rash Course Vital Signs 08/24/22 08/24/22 08/24/22 15:41 21:39 21:49 Temperature 98.1 F Pulse Rate 108 H 105 H 100 Respiratory 18 Rate Blood Pressure 119/77 O2 Sat by Pulse 98 Oximetry 08/24/22 22:19 Temperature Pulse Rate 106 H Respiratory 18 Rate Blood Pressure 145/89 O2 Sat by Pulse 94 L Oximetry Medical Decision Making - Medical Decision Making This is a 47-year-old female presenting with right upper quadrant abdominal pain. Patient well-appearing and in no apparent distress. Afebrile. There is moderate right upper quadrant tenderness without rigidity or guarding. Positive Muora sign. Laboratory studies obtained. There is mild leukocytosis of 15.8, likely due to upper respiratory infection. Liver function enzymes and bilirubin are normal. COVID-19 and influenza are not detected. Abdominal ultrasound obtained and reviewed by me which shows no gallstones or dilated ducts. There is echogenic liver and consistent with fatty infiltration. No free fluid or significant change. Chest x-ray obtained and reviewed by me which is negative for acute process. Pain controlled. Patient given Solu-Medrol and albuterol nebulizer treatment for asthma exacerbation with wheezing which resolved the wheezing. Results discussed with patient. At this time there are no diagnostic studies to explain patient's symptoms. I do feel that patient will benefit from HIDA scan. Patient will be referred to GI specialist. She will be sent home with Tylenol 3 starter pack. States she already has Motrin 800 home. Will also send patient home with prednisone for asthma exacerbation. Return parameters discussed. Dr. Rodriguez is my attending. - Lab Data Result diagrams: 08/24/22 20:08 08/24/22 20:08 Lab Results 08/24/22 08/24/22 08/24/22 Range/Units 20:08 20:08 20:08 WBC 15.8 H (3.8-10.6) k/uL RBC 4.94 (3.80-5.40) m/uL Hgb 12.1 (11.4-16.0) gm/dL Hct 37.5 (34.0-46.0) % MCV 75.9 L (80.0-100.0) fL MCH 24.4 L (25.0-35.0) pg MCHC 32.2 (31.0-37.0) g/dL RDW 14.0 (11.5-15.5) % Plt Count 338 (150-450) k/uL MPV 10.1 Neutrophils % 66 % Lymphocytes % 25 % Monocytes % 5 % Eosinophils % 2 % Basophils % 1 % Neutrophils # 10.5 H (1.3-7.7) k/uL Lymphocytes # 3.9 (1.0-4.8) k/uL Monocytes # 0.7 (0-1.0) k/uL Eosinophils # 0.3 (0-0.7) k/uL Basophils # 0.1 (0-0.2) k/uL Hypochromasia Slight Microcytosis Slight Sodium 135 L (137-145) mmol/L Potassium 4.1 (3.5-5.1) mmol/L Chloride 99 (98-107) mmol/L Carbon Dioxide 22 (22-30) mmol/L Anion Gap 14 mmol/L BUN 10 (7-17) mg/dL Creatinine 0.53 (0.52-1.04) mg/dL Est GFR (CKD-EPI)AfAm >90 (>60 ml/min/1.73 sqM) Est GFR (CKD-EPI)NonAf >90 (>60 ml/min/1.73 sqM) Glucose 198 H (74-99) mg/dL Plasma Lactic Acid Yeyo 1.4 (0.7-2.0) mmol/L Calcium 9.2 (8.4-10.2) mg/dL Total Bilirubin 0.5 (0.2-1.3) mg/dL AST 28 (14-36) U/L ALT 27 (4-34) U/L Alkaline Phosphatase 113 (38-126) U/L Total Protein 7.3 (6.3-8.2) g/dL Albumin 4.5 (3.5-5.0) g/dL Lipase 195 (23-300) U/L Coronavirus (PCR) (Not Detectd) Influenza Type A RNA (Not Detectd) Influenza Type B (PCR) (Not Detectd) 08/24/22 08/24/22 Range/Units 20:29 20:29 WBC (3.8-10.6) k/uL RBC (3.80-5.40) m/uL Hgb (11.4-16.0) gm/dL Hct (34.0-46.0) % MCV (80.0-100.0) fL MCH (25.0-35.0) pg MCHC (31.0-37.0) g/dL RDW (11.5-15.5) % Plt Count (150-450) k/uL MPV Neutrophils % % Lymphocytes % % Monocytes % % Eosinophils % % Basophils % % Neutrophils # (1.3-7.7) k/uL Lymphocytes # (1.0-4.8) k/uL Monocytes # (0-1.0) k/uL Eosinophils # (0-0.7) k/uL Basophils # (0-0.2) k/uL Hypochromasia Microcytosis Sodium (137-145) mmol/L Potassium (3.5-5.1) mmol/L Chloride (98-107) mmol/L Carbon Dioxide (22-30) mmol/L Anion Gap mmol/L BUN (7-17) mg/dL Creatinine (0.52-1.04) mg/dL Est GFR (CKD-EPI)AfAm (>60 ml/min/1.73 sqM) Est GFR (CKD-EPI)NonAf (>60 ml/min/1.73 sqM) Glucose (74-99) mg/dL Plasma Lactic Acid Yeyo (0.7-2.0) mmol/L Calcium (8.4-10.2) mg/dL Total Bilirubin (0.2-1.3) mg/dL AST (14-36) U/L ALT (4-34) U/L Alkaline Phosphatase (38-126) U/L Total Protein (6.3-8.2) g/dL Albumin (3.5-5.0) g/dL Lipase (23-300) U/L Coronavirus (PCR) Not Detected (Not Detectd) Influenza Type A RNA Not Detected (Not Detectd) Influenza Type B (PCR) Not Detected (Not Detectd) Disposition Clinical Impression: RUQ pain, Congestion of nasal sinus, Cough, Asthma exacerbation Disposition: HOME SELF-CARE Condition: Good Instructions (If sedation given, give patient instructions): Biliary Colic (ED) Additional Instructions: Take medication as directed. You may also take this medication with your home prescription of Motrin 800 if you are experiencing severe pain. Avoid fatty foods which may worsen pain. Follow-up with GI specialist in 1-2 days for po ssible HIDA scan. Take prednisone as directed for asthma exacerbation. Start prescription tomorrow. Return to the emergency department if you experience new, concerning, or worsening symptoms. Prescriptions: predniSONE 50 mg PO DAILY #5 tab Is patient prescribed a controlled substance at d/c from ED?: No Referrals: None,Stated [Primary Care Provider] - 1-2 days Nesha Moura MD [STAFF PHYSICIAN] - 1-2 days Time of Disposition: 22:08
[2022-08-24 22:19] VITALS: BP 145/89; PULSE 106
== END 2022-08-24 22:24 | disposition home or self-care (01) ==
LOC: EC 15:39
DX: R10.12 Left upper quadrant pain (principal); J45.901 Unspecified asthma with (acute) exacerbation; R09.81 Nasal congestion; Z20.822 Contact with and (suspected) exposure to COVID-19; J45.909 Unspecified asthma, uncomplicated; E11.9 Type 2 diabetes mellitus without complications; E78.5 Hyperlipidemia, unspecified; I10 Essential (primary) hypertension; F90.9 Attention-deficit hyperactivity disorder, unspecified type; F41.9 Anxiety disorder, unspecified; F31.9 Bipolar disorder, unspecified; F12.90 Cannabis use, unspecified, uncomplicated; F17.290 Nicotine dependence, other tobacco product, uncomplicated; Z88.0 Allergy status to penicillin; Z88.1 Allergy status to other antibiotic agents; Z88.2 Allergy status to sulfonamides; Z79.02 Long term (current) use of antithrombotics/antiplatelets; Z79.811 Long term (current) use of aromatase inhibitors; Z79.51 Long term (current) use of inhaled steroids; Z79.84 Long term (current) use of oral hypoglycemic drugs
CPT/HCPCS: 99284 ×2; 96374 ×2; 96375 ×2; 96376 ×2; 36415; 94640; 80053; 83605; 83690; 85025; 87502; 87635; 71046; 76705; J2930; J1170

== ENCOUNTER 2022-09-17 23:32 | Emergency (ER) | payer MEDICARE ==
[2022-09-18] MEDS ORDERED: MORPHINE SULFATE 4 MG/ML SYRINGE IV STA (00:25)
[2022-09-18] MEDS ORDERED: SODIUM CHLORIDE 0.9% 1,000 ML IV STA (00:25)
[2022-09-18] MEDS ORDERED: ONDANSETRON 4 MG/2 ML VIAL IVP STA (00:25)
[2022-09-18] MEDS ORDERED: PANTOPRAZOLE 40 MG/10 ML VIAL IVP STA (00:26)
[2022-09-18 00:36] LABS: Basophils # (A) 0.1 k/uL (0-0.2); Basophils % (A) 1 %; Eosinophils # (A) 0.2 k/uL (0-0.7); Eosinophils % (A) 2 %; HCT 40.3 % (34.0-46.0); HGB 13.1 gm/dL (11.4-16.0); Hypochromasia Slight; Lymphocytes # (A) 4.1 k/uL (1.0-4.8); Lymphocytes % (A) 27 %; MCH 24.5 pg (25.0-35.0); MCHC 32.4 g/dL (31.0-37.0); MCV 75.6 fL (80.0-100.0); Mean Platelet Volume 9.1; Microcytosis Slight; Monocytes # (A) 0.8 k/uL (0-1.0); Monocytes % (A) 6 %; Neutrophils # (A) 9.6 k/uL (1.3-7.7); Neutrophils % (A) 63 %; Platelet Count 312 k/uL (150-450); RBC 5.33 m/uL (3.80-5.40); RDW 14.2 % (11.5-15.5); WBC 15.2 k/uL (3.8-10.6)
[2022-09-18 00:43] LABS: Appearance,Urine Turbid (Clear); Bacteria,Urine Many /hpf; Bilirubin,Urine Negative (Negative); Blood,Urine Small (Negative); Color,Urine Yellow; Glucose,Urine (UA) Negative (Negative); Ketones,Urine Trace (Negative); Leukocyte Esterase,Urine Small (Negative); Mucus,Urine Many /hpf; Nitrite,Urine Negative (Negative); PH, Urine 5.5 (5.0-8.0); Protein,Urine 1+ (Negative); RBC,Urine 3 /hpf (0-5); Specific Gravity,Urine 1.021 (1.001-1.035); Squamous Epithelial Cell,Urine 51 /hpf (0-4); Urobilinogen,Urine <2.0 mg/dL (<2.0); WBC,Urine 19 /hpf (0-5)
[2022-09-18 01:06] VITALS: RESP 16
[2022-09-18 01:20] LABS: ALT 37 U/L (4-34); AST 43 U/L (14-36); African American GFR (CKD) >90 (>60 ml/min/1.73 sqM); Albumin 4.5 g/dL (3.5-5.0); Alkaline Phosphatase 114 U/L (38-126); Anion Gap 12 mmol/L; Blood Urea Nitrogen 10 mg/dL (7-17); Calcium 10.1 mg/dL (8.4-10.2); Carbon Dioxide 20 mmol/L (22-30); Chloride 103 mmol/L (98-107); Glucose 191 mg/dL (74-99); Lipase 120 U/L (23-300); Non-African American GFR(CKD) >90 (>60 ml/min/1.73 sqM); Potassium 3.9 mmol/L (3.5-5.1); Sodium 135 mmol/L (137-145); Total Bilirubin 0.3 mg/dL (0.2-1.3); Total Protein 7.5 g/dL (6.3-8.2)
--- NOTE | 2022-09-18 01:48 | CT ---
EXAMINATION TYPE: CT abdomen pelvis w con DATE OF EXAM: 09/18/2022 COMPARISON: 01/08/2022 HISTORY: Nausea, vomitting, and diarrhea. CT DLP: 2151.9 mGycm Automated exposure control for dose reduction was used. CONTRAST: Performed with IV Contrast, patient injected with 100ml mL of Isovue 300. Images obtained from the diaphragm to the floor the pelvis with IV contrast. Lung bases are clear. No pleural effusion. Heart size is normal. No pericardial effusion. There is some fatty infiltration of the liver. Spleen stomach pancreas gallbladder appear intact. The bile ducts are not dilated. There is no adrenal mass. Kidneys show normal size and contour. No hydronephrosis. Ureters are not di lated. No retroperitoneal adenopathy. Bladder distends smoothly. No inguinal hernia. Uterus is anteverted. No pelvic mass. No free fluid in the pelvis. There is 2.5 cm cyst on the left ovary. The terminal ileum appears normal. Appendix is p osterior and medial and appears normal. There is multilevel posterior fusion surgery in the lower lumbar spine from L3 to L5. There is neuro stimulator in the posterior lumbar spine. There is no mesenteric edema. No ascites or free air. No sign of a bowel obstruction. The bony pelvis is intact. The hip joints are intact. Sacroiliac joints are intact. IMPRESSION: No acute abnormality of the abdomen and pelvis. Previous surgery. Normal appendix. No adverse change compared to old exam.
[2022-09-18] MEDS ORDERED: DIPHENOX-ATROP STARTER PACK 8 TAB BTL PO STA (02:18)
--- NOTE | 2022-09-18 02:23 | ED ---
General Adult HPI - General Chief complaint: Nausea/Vomiting/Diarrhea Stated complaint: Diarrhea, Vomiting, Abdominal Pain Time Seen by Provider: 09/18/22 00:01 Source: patient Mode of arrival: ambulatory Limitations: no limitations - History of Present Illness Initial comments: 47-year-old female past history of diabetes, hypertension, hyperlipidemia p resents to the emergency department for generalized abdominal pain, nausea, vomiting and diarrhea. Patient was seen in the emergency department approximately 3 weeks ago for similar complaint. Laboratory studies were conducted and the patient had an ultrasound of her abdomen performed. She was instructed to follow up with the GI doctor. States that she did see Dr. Nunez in office was placed on Bentyl. She has been taking the medications as directed and states that she had marked improvement in her symptoms. Patient then began feeling mentally off. Thought that her psychiatric medications may have been not working due to the new medication. She stopped taking the Bentyl and symptoms flared up again. She does have a follow-up appointment with Dr. Nunez in 3 weeks for which at that appointment they were going to discuss EGD and colonoscopy. Patient admits to 5 episodes of vomiting. Nonbilious and nonbloody. Abdominal pain is generalized. No fevers. No sick contacts with similar symptoms. Denies constipation, black or bloody stools. Does admit to watery diarrhea. No recent travel. No recent antibiotic use. Denies dysuria, hematuria or difficulty voiding. No abnormal vaginal bleeding or discharge. No other alleviating, precipitating or modifying factors - Related Data Home Medications Medication Instructions Recorded Confirmed DULoxetine HCL [Cymbalta] 120 mg PO DAILY 03/21/17 04/21/22 Albuterol Sulfate [Proair Hfa] 2 puff INHALATION RT-QID PRN 01/31/18 04/21/22 OLANZapine [ZyPREXA] 5 mg PO DAILY 01/31/18 04/21/22 Pregabalin [Lyrica] 200 mg PO TID 01/31/18 04/21/22 clonazePAM [KlonoPIN] 0.5 mg PO DAILY 01/31/18 04/21/22 Aspirin EC [Ecotrin Low Dose] 81 mg PO DAILY 01/08/22 04/21/22 Atorvastatin [Lipitor] 10 mg PO HS 01/08/22 04/21/22 Losartan Potassium 100 mg PO DAILY 01/08/22 04/21/22 OLANZapine [ZyPREXA] 10 mg PO HS 01/08/22 04/21/22 Omeprazole 40 mg PO DAILY 01/08/22 04/21/22 clonazePAM [KlonoPIN] 1.5 mg PO HS 01/08/22 04/21/22 glipiZIDE [Glucotrol] 5 mg PO BID 01/08/22 04/21/22 sitaGLIPtin PHOS/metFORMIN HCL 1 tab PO BID 01/08/22 04/21/22 [Janumet 50-1,000 mg Tablet] Previous Rx's Medication Instructions Recorded INSULIN ASPART (NovoLOG) [NovoLOG 0 unit SQ ACHS each 04/22/22 (formulary)] predniSONE 50 mg PO DAILY #5 tab 08/24/22 Diphenox-Atrop 2.5-0.025 mg 1 - 2 tab PO QID PRN 3 Days #30 tab 09/18/22 [Lomotil] Metoclopramide HCl [Reglan] 10 mg PO Q8HR PRN #30 tab 09/18/22 Allergies Allergy/AdvReac Type Severity Reaction Status Date / Time ampicillin [From Unasyn] Allergy Rash/Hives Verified 09/17/22 23:33 erythromycin base Allergy Rash/Hives Verified 09/17/22 23:33 [From E-Mycin] sulbactam [From Unasyn] Allergy Rash/Hives Verified 09/17/22 23:33 Review of Systems ROS Statement: Those systems with pertinent positive or pertinent negative responses have been documented in the HPI. ROS Other: All systems not noted in ROS Statement are negative. Past Medical History Past Medical History: Asthma, Diabetes Mellitus, Hyperlipidemia, Hypertension Additional Past Medical History / Comment(s): chronic back pain History of Any Multi-Drug Resistant Organisms: None Reported Past Surgical History: Back Surgery Additional Past Surgical History / Comment(s): spinal fusion, PAIN CLINIC PROCEDURE, blue tooth device in back Past Anesthesia/Blood Transfusion Reactions: Motion Sickness Past Psychological History: ADD/ADHD, Anxiety, Bipolar Smoking Status: Vaper Past Alcohol Use History: None Reported Past Drug Use History: Marijuana - Past Family History Mother Family Medical History: Deep Vein Thrombosis (DVT) General Exam Limitations: no limitations General appearance: alert, in no apparent distress Head exam: Present: atraumatic, normocephalic, normal inspection Eye exam: Present: normal appearance, PERRL, EOMI. Absent: scleral icterus, conjunctival injection, periorbital swelling ENT exam: Present: normal exam, mucous membranes moist Neck exam: Present: normal inspection. Absent: tenderness, meningismus, lym phadenopathy Respiratory exam: Present: normal lung sounds bilaterally. Absent: respiratory distress, wheezes, rales, rhonchi, stridor Cardiovascular Exam: Present: regular rate, normal rhythm, normal heart sounds. Absent: systolic murmur, diastolic murmur, rubs, gallop, clicks GI/Abdominal exam: Present: soft, tenderness (epigastric), normal bowel sounds. Absent: distended, guarding, rebound, rigid Extremities exam: Present: normal inspection, full ROM, normal capillary refill. Absent: tenderness, pedal edema, joint swelling, calf tenderness Back exam: Present: normal inspection Neurological exam: Present: alert, oriented X3, CN II-XII intact Psychiatric exam: Present: normal affect, normal mood Skin exam: Present: warm, dry, intact, normal color. Absent: rash Course Vital Signs 09/17/22 09/18/22 09/18/22 23:34 01:05 02:29 Temperature 97.0 F L 98.4 F 98.2 F Pulse Rate 98 82 78 Respiratory 18 16 16 Rate Blood Pressure 126/79 128/80 126/79 O2 Sat by Pulse 98 98 97 Oximetry Medical Decision Making - Medical Decision Making Upon arrival patient was placed into room 13. A thorough history and physical exam was performed. IV access was established and laboratory studies were conducted. Patient was given 4 mg of morphine for pain control, 4 mg of Zofran for nausea, 40 mg of Protonix and a liter bolus of normal saline. Laboratory studies are conducted and reviewed. Mild leukocytosis 15.2. Glucose 191. Urinalysis demonstrates many bacteria however not a clean catch. CT the abdomen and pelvis is performed which demonstrates no acute findings per the radiologist. Results are discussed with the patient. She does report improvement in her symptoms. I did discuss diagnosis, differential and treatment options. Patient requesting a different medication in substitution for the Bentyl. She will be started on Lomotil. She is given a pack. Started to take the medications as directed. She does have improvement in her symptoms she may fill the prescription for the Lomotil. She is unable to have a bowel movement in the emergency Department. Recommend that she collect a stool sample and take her primary care doctor. She needs to follow-up with Dr. Nunez as I do recommend EEG and colonoscopy. Return for any new or worsening symptoms. Amarilys angie was agreeable to treatment plan she was discharged home in stable condition - Lab Data Result diagrams: 09/18/22 00:28 09/18/22 00:28 Lab Results 09/18/22 09/18/22 09/18/22 Range/Units 00:28 00:28 00:28 WBC 15.2 H (3.8-10.6) k/uL RBC 5.33 (3.80-5.40) m/uL Hgb 13.1 (11.4-16.0) gm/dL Hct 40.3 (34.0-46.0) % MCV 75.6 L (80.0-100.0) fL MCH 24.5 L (25.0-35.0) pg MCHC 32.4 (31.0-37.0) g/dL RDW 14.2 (11.5-15.5) % Plt Count 312 (150-450) k/uL MPV 9.1 Neutrophils % 63 % Lymphocytes % 27 % Monocytes % 6 % Eosinophils % 2 % Basophils % 1 % Neutrophils # 9.6 H (1.3-7.7) k/uL Lymphocytes # 4.1 (1.0-4.8) k/uL Monocytes # 0.8 (0-1.0) k/uL Eosinophils # 0.2 (0-0.7) k/uL Basophils # 0.1 (0-0.2) k/uL Hypochromasia Slight Microcytosis Slight Sodium 135 L (137-145) mmol/L Potassium 3.9 (3.5-5.1) mmol/L Chloride 103 (98-107) mmol/L Carbon Dioxide 20 L (22-30) mmol/L Anion Gap 12 mmol/L BUN 10 (7-17) mg/dL Creatinine 0.63 (0.52-1.04) mg/dL Est GFR (CKD-EPI)AfAm >90 (>60 ml/min/1.73 sqM) Est GFR (CKD-EPI)NonAf >90 (>60 ml/min/1.73 sqM) Glucose 191 H (74-99) mg/dL Plasma Lactic Acid Yeyo (0.7-2.0) mmol/L Calcium 10.1 (8.4-10.2) mg/dL Total Bilirubin 0.3 (0.2-1.3) mg/dL AST 43 H (14-36) U/L ALT 37 H (4-34) U/L Alkaline Phosphatase 114 (38-126) U/L Total Protein 7.5 (6.3-8.2) g/dL Albumin 4.5 (3.5-5.0) g/dL Lipase 120 (23-300) U/L Urine Color Yellow Urine Appearance Turbid H (Clear) Urine pH 5.5 (5.0-8.0) Ur Specific [place] 1.021 (1.001-1.035) Urine Protein 1+ H (Negative) Urine Glucose (UA) Negative (Negative) Urine Ketones Trace H (Negative) Urine Blood Small H (Negative) Urine Nitrite Negative (Negative) Urine Bilirubin Negative (Negative) Urine Urobilinogen <2.0 (<2.0) mg/dL Ur Leukocyte Esterase Small H (Negative) Urine RBC 3 (0-5) /hpf Urine WBC 19 H (0-5) /hpf Ur Squamous Epith Cells 51 H (0-4) /hpf Urine Bacteria Many H (None) /hpf Urine Mucus Many H (None) /hpf 09/18/ Range/Units 00:28 WBC (3.8-10.6) k/uL RBC (3.80-5.40) m/uL Hgb (11.4-16.0) gm/dL Hct (34.0-46.0) % MCV (80.0-100.0) fL MCH (25.0-35.0) pg MCHC (31.0-37.0) g/dL RDW (11.5-15.5) % Plt Count (150-450) k/uL MPV Neutrophils % % Lymphocytes % % Monocytes % % Eosinophils % % Basophils % % Neutrophils # (1.3-7.7) k/uL Lymphocytes # (1.0-4.8) k/uL Monocytes # (0-1.0) k/uL Eosinophils # (0-0.7) k/uL Basophils # (0-0.2) k/uL Hypochromasia Microcytosis Sodium (137-145) mmol/L Potassium (3.5-5.1) mmol/L Chloride (98-107) mmol/L Carbon Dioxide (22-30) mmol/L Anion Gap mmol/L BUN (7-17) mg/dL Creatinine (0.52-1.04) mg/dL Est GFR (CKD-EPI)AfAm (>60 ml/min/1.73 sqM) Est GFR (CKD-EPI)NonAf (>60 ml/min/1.73 sqM) Glucose (74-99) mg/dL Plasma Lactic Acid Yeyo 1.9 (0.7-2.0) mmol/L Calcium (8.4-10.2) mg/dL Total Bilirubin (0.2-1.3) mg/dL AST (14-36) U/L ALT (4-34) U/L Alkaline Phosphatase (38-126) U/L Total Protein (6.3-8.2) g/dL Albumin (3.5-5.0) g/dL Lipase (23-300) U/L Urine Color Urine Appearance (Clear) Urine pH (5.0-8.0) Ur Specific [place] (1.001-1.035) Urine Protein (Negative) Urine Glucose (UA) (Negative) Urine Ketones (Negative) Urine Blood (Negative) Urine Nitrite (Negative) Urine Bilirubin (Negative) Urine Urobilinogen (<2.0) mg/dL Ur Leukocyte Esterase (Negative) Urine RBC (0-5) /hpf Urine WBC (0-5) /hpf Ur Squamous Epith Cells (0-4) /hpf Urine Bacteria (None) /hpf Urine Mucus (None) /hpf Disposition Clinical Impression: Abdominal pain, Nausea & vomiting, Diarrhea Disposition: HOME SELF-CARE Condition: Stable Instructions (If sedation given, give patient instructions): Acute Nausea and Vomiting (ED), Acute Diarrhea (ED) Additional Instructions: Please take the medications as directed. Follow up with the GI doctor. I feel that you need an EGD and colonoscopy. Return for any new or worsening symptoms Prescriptions: Diphenox-Atrop 2.5-0.025 mg [Lomotil] 1 - 2 tab PO QID PRN 3 Days #30 tab PRN Reason: Diarrhea Metoclopramide HCl [Reglan] 10 mg PO Q8HR PRN #30 tab PRN Reason: Nausea Is patient prescribed a controlled substance at d/c from ED?: No Referrals: Willard Barron MD [Primary Care Provider] - 1-2 days Nesha Moura MD [STAFF PHYSICIAN] - 1-2 days Time of Disposition: 02:23
[2022-09-18 02:30] VITALS: BP 126/79; PULSE 78; TEMP 98.2
== END 2022-09-18 02:30 | disposition home or self-care (01) ==
LOC: EC 23:32
DX: R10.9 Unspecified abdominal pain (principal); R11.2 Nausea with vomiting, unspecified; R19.7 Diarrhea, unspecified; D72.829 Elevated white blood cell count, unspecified; J45.909 Unspecified asthma, uncomplicated; E11.9 Type 2 diabetes mellitus without complications; E78.5 Hyperlipidemia, unspecified; I10 Essential (primary) hypertension; F90.9 Attention-deficit hyperactivity disorder, unspecified type; F41.9 Anxiety disorder, unspecified; F31.9 Bipolar disorder, unspecified; F17.290 Nicotine dependence, other tobacco product, uncomplicated; F12.90 Cannabis use, unspecified, uncomplicated; Z79.82 Long term (current) use of aspirin; Z79.02 Long term (current) use of antithrombotics/antiplatelets; Z79.84 Long term (current) use of oral hypoglycemic drugs; Z79.899 Other long term (current) drug therapy; Z88.0 Allergy status to penicillin; Z88.1 Allergy status to other antibiotic agents; Z88.2 Allergy status to sulfonamides
CPT/HCPCS: 99284; 96374; 96375 ×2; 96361; 36415; 80053; 83605; 83690; 85025; 81001; 87086; 74177; J2270; J2405; C9113; Q9967

== ENCOUNTER → 2022-11-07 | Day surgery (SDC) | payer MEDICARE ==
[~2022-11-07] MED LIST changes: +LACTATED RINGERS 1,000 ML IV SCH; +LIDOCAINE 1% (10MG/ML) FOR IV START INTRADERMA PRN; +LIDOCAINE 2% INJ 20 MG/ML (2 ML VIAL) ONE; +PROPOFOL 10 MG/ML 20 ML VIAL IV ONE; -SODIUM CHLORIDE 0.9% 500 ML 500 ML IV SCH
[2022-11-07 06:39] LABS: Glucose,Whole Blood 247 mg/dL (70-110)
[2022-11-07 06:46] VITALS: TEMP 96.4
--- NOTE | 2022-11-07 07:27 | P.PCN ---
Date of Procedure: 11/07/22 Procedure(s) Performed: Brief history: Patient is a pleasant 47-year-old white female scheduled for an elective upper endoscopy as well as colonoscopy as a part of evaluation of GERD/intermittent right upper quadrant abdominal pain associated with nausea vomiting and chronic diarrhea for the last several months duration Procedure performed: Esophagogastroduodenoscopy with biopsy Colonoscopy with random biopsies Preoperative diagnosis: Right upper quadrant abdominal pain/intermittent nausea vomiting Chronic diarrhea [place]est[place]: [facility] [place]: After informed consent was obtained from the patient was brought into the endoscopy unit and IV sedation was administered by anesthesia under continuous monitoring. Initially upper endoscopy was done. The Olympus GF 160 video endoscope was inserted inserted into the mouth and esophagus intubated without any difficulty and was gradually advanced into the stomach and duodenum and carefully examined. The bulb and second part of the duodenum appeared normal. Biopsies were done from the duodenum to rule out celiac disease. The scope was then withdrawn into the stomach adequately insufflated with air and upon careful examination the antrum had patchy areas of erythema and biopsies were done from this area. Mucosa of the body, cardia and fundus appeared normal. The scope was then withdrawn into the esophagus. The GE junction was located at 40 cm to the incisors. It appeared regular with no erythema erosions or ulcerations. Rest of the esophagus appeared normal. Patient tolerated the procedure well. At this time the patient continued to remain sedation. Initial digital rectal examination was normal. Olympus CF 160 video colonoscope was then inserted into the rectum and gradually advanced to the cecum without any difficulty. Careful examination was performed as the scope was gradually being withdrawn. The prep was excellent. The cecum, ascending colon, transverse colon, descending colon, sigmoid colon and rectum appeared normal. Random biopsies were done from ascending and descending colon to rule out metastatic/collagenous colitis. Retroflexion was performed in the rectum and no lesions were noted. Patient tolerated the procedure well. Impression: 1. Upper endoscopy revealed mild antral gastritis 2. Colonoscopy was within normal limits with no evidence of colitis or colorectal neoplasia. Recommendations: Findings of this examination were discussed with the patient as well as her family. She was advised to follow with the biopsy results. Continue current medications. Recommend repeat screening colonoscopy in 10 years.
[2022-11-07 08:06] VITALS: BP 114/80; PULSE 78; RESP 16
== END ==
LOC: ORWHC2ENDO 06:00
PROVIDERS: ATTEND Internal Medicine Gastroenterology
DX: K29.50 Unspecified chronic gastritis without bleeding (principal); K21.9 Gastro-esophageal reflux disease without esophagitis; Z88.0 Allergy status to penicillin; Z91.013 Allergy to seafood; Z91.048 Other nonmedicinal substance allergy status; I10 Essential (primary) hypertension; E78.5 Hyperlipidemia, unspecified; J45.909 Unspecified asthma, uncomplicated; E11.9 Type 2 diabetes mellitus without complications; Z79.84 Long term (current) use of oral hypoglycemic drugs; Z79.899 Other long term (current) drug therapy; K52.9 Noninfective gastroenteritis and colitis, unspecified
CPT/HCPCS: 81025; 88305; 45380; 43239; J2704; J2001

== ENCOUNTER 2023-01-22 18:17 | Emergency (ER) | payer MEDICARE ==
--- NOTE | 2023-01-22 19:17 | ED ---
Fall HPI - General Chief Complaint: Fall Stated Complaint: Fall,rt shoulder pain Time Seen by Provider: 01/22/23 19:04 Source: patient, RN notes reviewed Mode of arrival: ambulatory Limitations: no limitations - History of Present Illness Initial Comments: This pleasant nontoxic-appearing 47-year-old female who presents to the emergency room with complaints of tripping over her shoe landing on her right shoulder a couple hours prior to arrival. Patient states she felt a pop in her shoulder. Continues to have a sharp pain that radiates down her upper arm feels tingly. Patient has full range of motion of the elbow. No wrist or hand pain. Did not hit her head or lose consciousness. Does not take any blood thinners. No fractures in the past. MD Complaint: fall -: hour(s) (2) Fall From: standing When Fall Occurred: 1-[address] Fall Occurred: home Loss of Consciousness: none Prolonged Down Time?: no Location - Extremities: Right: Shoulder Severity scale (1-10): 8 Quality: sharp, tingling Context: tripped/slipped Associated Symptoms: denies - Related Data Home Medications Medication Instructions Recorded Confirmed DULoxetine HCL [Cymbalta] 120 mg PO DAILY 03/21/17 11/07/22 Albuterol Sulfate [Proair Hfa] 2 puff INHALATION RT-QID PRN 01/31/18 11/07/22 OLANZapine [ZyPREXA] 5 mg PO DAILY 01/31/18 11/07/22 Pregabalin [Lyrica] 200 mg PO TID 01/31/18 11/07/22 clonazePAM [KlonoPIN] 0.5 mg PO DAILY 01/31/18 11/07/22 Aspirin EC [Ecotrin Low Dose] 81 mg PO DAILY 01/08/22 11/07/22 Atorvastatin [Lipitor] 10 mg PO HS 01/08/22 11/07/22 Losartan Potassium 100 mg PO DAILY 01/08/22 11/07/22 OLANZapine [ZyPREXA] 10 mg PO HS 01/08/22 11/07/22 Omeprazole 40 mg PO DAILY 01/08/22 11/07/22 clonazePAM [KlonoPIN] 1.5 mg PO HS 01/08/22 11/07/22 glipiZIDE [Glucotrol] 5 mg PO BID 01/08/22 11/07/22 sitaGLIPtin PHOS/metFORMIN HCL 1 tab PO BID 01/08/22 11/07/22 [Janumet 50-1,000 mg Tablet] Previous Rx's Medication Instructions Recorded Diphenox-Atrop 2.5-0.025 mg 1 - 2 tab PO QID PRN 3 Days #30 tab 09/18/22 [Lomotil] Metoclopramide HCl [Reglan] 10 mg PO Q8HR PRN #30 tab 09/18/22 Ibuprofen [Motrin] 600 mg PO Q8HR PRN #30 tab 01/22/23 Allergies Allergy/AdvReac Type Severity Reaction Status Date / Time ampicillin [From Unasyn] Allergy Rash/Hives Verified 01/22/23 18:50 erythromycin base Allergy Rash/Hives Verified 01/22/23 18:50 [From E-Mycin] sulbactam [From Unasyn] Allergy Rash/Hives Verified 01/22/23 18:50 Review of Systems ROS Statement: Those systems with pertinent positive or pertinent negative responses have been documented in the HPI. ROS Other: All systems not noted in ROS Statement are negative. Past Medical History Past Medical History: Asthma, Diabetes Mellitus, GERD/Reflux, Hyperlipidemia, Hypertension Additional Past Medical History / Comment(s): chronic back pain History of Any Multi-Drug Resistant Organisms: None Reported Past Surgical History: Back Surgery Additional Past Surgical History / Comment(s): spinal fusion, PAIN CLINIC PROCEDURE, spinal cord stimulator device in back Past Anesthesia/Blood Transfusion Reactions: Motion Sickness Past Psychological History: ADD/ADHD, Anxiety, Bipolar Smoking Status: Former smoker, Vaper Past Alcohol Use History: None Reported Past Drug Use History: None Reported - Past Family History Mother Family Medical History: Deep Vein Thrombosis (DVT) Additional Family Medical History / Comment(s): aunt rectal, maternal grandmother breast General Exam Limitations: no limitations General appearance: alert, in no apparent distress Head exam: Present: atraumatic, normocephalic Eye exam: Present: normal appearance. Absent: scleral icterus, conjunctival injection, periorbital swelling, periorbital tenderness Neck exam: Present: full ROM. Absent: tenderness, meningismus, lymphadenopathy Respiratory exam: Absent: respiratory distress, accessory muscle use Cardiovascular Exam: Present: tachycardia Extremities exam: Present: normal capillary refill Right Shoulder Exam: Present: tenderness, tenderness over AC joint. Absent: full ROM, swelling, laceration, ecchymosis, deformity, crepitus, dislocation Upper Arm exam: Present: tenderness. Absent: swelling, abrasion, laceration, ecchymosis, deformity, crepidus, dislocation, erythema Elbow exam: Present: full ROM. Absent: tenderness Forearm Wrist exam: Present: full ROM. Absent: tenderness Hand Wrist exam: Present: full ROM. Absent: tenderness Neurosensory exam: Present: radial nerve intact, ulnar nerve intact, median nerve intact Vascular: Present: normal capillary refill. Absent: vascular compromise Back exam: Absent: tenderness, CVA tenderness (R), CVA tenderness (L), paraspinal tenderness, vertebral tenderness, rash noted Neurological exam: Present: alert, oriented X3 Psychiatric exam: Present: normal affect, normal mood Skin exam: Present: warm, dry, normal color. Absent: cyanosis, diaphoretic, petechiae, pallor Course Vital Signs 01/22/23 01/22/23 18:46 21:00 Temperature 98.2 F 8 F L Pulse Rate 113 H 78 Respiratory 20 14 Rate Blood Pressure 126/83 101/62 O2 Sat by Pulse 96 97 Oximetry Medical Decision Making - Medical Decision Making X-ray of the right shoulder and right humerus interpreted by me shows no evidence of fracture or dislocation. Radiologist interpretation suspected humeral head fracture with intra-articular extension demonstrated a lucency through the medial portion of the head CT of the right shoulder performed radiologist impression finding on prior radiograph correlates with large osteophytes of right femoral head. There is associated moderate to severe right osteoporosis changes of the shoulder. No evidence of fracture. Bicipital groove cusp patient's likely representing tendinopathy changes. Patient was given Toradol and Ethel for pain. Patient was placed in a sling due to pain with movement. Neurovascularly intact. No evidence of bruising or swelling. Full range of motion of the elbow, wrist and hand. She was directed to follow up with orthopedics this week. She is agreeable to this plan of care. Patient has a history of asthma, diabetes, GERD, hyperlipidemia, hypertension, chronic back pain with spinal fusion, spinal cord stimulator, anxiety, bipolar. No previous fractures. Dr. Bowman Was pt. sent in by a medical professional or institution (, PA, ORGAN INSTALLER, urgent care, hospital, or senior care...) When possible be specific @ -No Did you speak to anyone other than the patient for history (EMS, parent, family, police, friend...)? What history was obtained from this source @ -No Did you review nursing and triage notes (agree or disagree)? Why? @ -I reviewed and agree with nursing and triage notes Were old charts reviewed (outside hosp., previous admission, EMS record, old EKG, old radiological studies, urgent care reports/EKG's, senior care records)? Report findings @ -No old charts were reviewed Differential Diagnosis (chest pain, altered mental status, abdominal pain women, abdominal pain men, vaginal bleeding, weakness, fever, dyspnea, syncope, headache, dizziness, GI bleed, back pain, seizure, CVA, palpatations, mental health, musculoskeletal)? @ -Shoulder fracture, dislocation, clavicle fracture EKG interpreted by me (3pts min.). @ -n/a X-rays interpreted by me (1pt min.). @ -Yes as above CT interpreted by me (1pt min.). @ -Yes no evidence of fracture or dislocation U/S interpreted by me (1pt. min.). @ -None done What testing was considered but not performed or refused? (CT, X-rays, U/S, labs)? Why? @ -None What meds were considered but not given or refused? Why? @ -None Did you discuss the management of the patient with other professionals (professionals i.e. , PA, ORGAN INSTALLER, lab, RT, psych nurse, manager social work, drinking water technician, teacher, administrative services officer, field nurse case manager)? Give summary @ -No Was smoking cessation discussed for >3mins.? @ -No Was critical care preformed (if so, how long)? @ -No Were there social determinants of health that impacted care today? How? (Homelessness, low income, unemployed, alcoholism, drug addiction, transportation, low edu. Level, literacy, decrease access to med. care, care home, rehab)? @ -No Was there de-escalation of care discussed even if they declined (Discuss DNR or withdrawal of care, Hospice)? DNR status @ -No What co-morbidities impacted this encounter? (DM, HTN, Smoking, COPD, CAD, Cancer, CVA, ARF, Chemo, Hep., AIDS, mental health diagnosis, sleep apnea, morbid obesity)? @ -Asthma, diabetes, hypertension, chronic back pain with spinal stimulator, anxiety, GERD Was patient admitted / discharged? Hospital course, mention meds given and route, prescriptions, significant lab abnormalities, going to OR and other per tinent info. @ -Discharged Undiagnosed new problem with uncertain prognosis? @ -No Drug Therapy requiring intensive monitoring for toxicity (Heparin, Nitro, Insulin, Cardizem)? @ -No Were any procedures done? @ -No Diagnosis/symptom? @ -Right shoulder pain, fall Acute, or Chronic, or Acute on Chronic? @ -Acute Uncomplicated (without systemic symptoms) or Complicated (systemic symptoms)? @ -Uncomplicated Side effects of treatment? @ -No Exacerbation, Progression, or Severe Exacerbation? @ -No Poses a threat to life or bodily function? How? (Chest pain, [place], [place], pneumonia, PE, COPD, DKA, ARF, appy, cholecystitis, CVA, Diverticulitis, Homicidal, Suicid al, threat to staff... and all critical care pts) @ -No Disposition Clinical Impression: Fall, Shoulder pain, right Disposition: HOME SELF-CARE Instructions (If sedation given, give patient instructions): How to Use a Sling (ED), Fall Prevention (ED), Shoulder Pain (ED) Additional Instructions: Rest, ice, and take Tylenol and Motrin as needed for pain or discomfort. Follow-up with orthopedics this week. Wear sling until seen by orthopedics. Return to the emergency room with any new or concerning symptoms. Prescriptions: Ibuprofen [Motrin] 600 mg PO Q8HR PRN #30 tab PRN Reason: Pain Is patient prescribed a controlled substance at d/c from ED?: No Referrals: Lincoln Cobos MD [Primary Care Provider] - 1-2 days Jimmy Arroyo MD [STAFF PHYSICIAN] - 1-2 days Time of Disposition: 20:48
[2023-01-22] MEDS ORDERED: KETOROLAC 15 MG/ML 1 ML VIAL IM STA (19:43)
--- NOTE | 2023-01-22 19:49 | XR ---
EXAMINATION TYPE: XR humerus RT, XR shoulder complete RT DATE OF EXAM: 01/22/2023 7:39 PM INDICATION: Patient age:Female; 47 years old; Reason for study: fall; COMPARISON: None TECHNIQUE: The right humerus was examined in frontal and lateral projections. Right shoulder was evaluated in frontal and lateral and oblique views. FINDINGS: Suspected humeral head fracture with intra-articular extension demonstrated by lucency thro ugh the medial portion of the head seen on a couple views only. On another view this area appears to represent represent large osteophyte. No additional fractures identified. The remaining portion of th e chest is unremarkable. IMPRESSION: CT of the humeral head best appreciated in at least 2 views concerning for underlying fracture. Consi negra further evaluation with CT. Alternatively this may represent large osteophyte of the glenoid on a different projection.
--- NOTE | 2023-01-22 20:39 | CT ---
EXAMINATION TYPE: CT shoulder RT wo con CT DLP: 1107.6 mGycm, Automated exposure control for dose reduction was used. DATE OF EXAM: 01/22/2023 8:36 PM COMPARISON: CLINICAL INDICATION:Female, 47 years old with history of right shoulder pain after fall; PHH, right s houlder pain following fall TECHNIQUE: Axial images were obtained of the right shoulder . Additional coronal and sagittal reform atted images and soft tissue and bone window were obtained for review. 3-D reconstruction was created on a separate workstation. Contrast used: None Oral contrast used: None FINDINGS: The right humeral head is intact. There is large osteophyte formation of the humeral head. Small oste ophytes are seen along the glenoid. The bicipital groove demonstrates calcifications. There is no evidence of fracture, subluxation, or dislocation. No significant soft tissue swelling o r joint effusion is identified. No focal muscular atrophy or edema is identified. No radiopaque forei gn body identified. IMPRESSION: 1. Finding on prior radiograph correlates with large osteophytes of the right femoral head. There is associated moderate to severe right osteoporosis changes of the shoulder. No evidence of fracture. 2. Bicipital groove cusp patient's likely representing tendinopathy changes.
[2023-01-22] MEDS ORDERED: HYDROcodone/APAP 5-325MG 1 EACH TAB PO STA (20:49)
[2023-01-22 21:03] VITALS: BP 101/62; PULSE 78; RESP 14; TEMP 8
== END 2023-01-22 21:06 | disposition home or self-care (01) ==
LOC: EC 18:17
DX: M25.511 Pain in right shoulder (principal); J45.909 Unspecified asthma, uncomplicated; E11.9 Type 2 diabetes mellitus without complications; I10 Essential (primary) hypertension; K21.9 Gastro-esophageal reflux disease without esophagitis; E78.5 Hyperlipidemia, unspecified; F90.9 Attention-deficit hyperactivity disorder, unspecified type; F41.9 Anxiety disorder, unspecified; F31.9 Bipolar disorder, unspecified; F17.290 Nicotine dependence, other tobacco product, uncomplicated; Z79.82 Long term (current) use of aspirin; Z79.84 Long term (current) use of oral hypoglycemic drugs; Z79.899 Other long term (current) drug therapy; Z88.2 Allergy status to sulfonamides; Z88.6 Allergy status to analgesic agent; Z88.8 Allergy status to other drugs, medicaments and biological substances; W01.0XXA Fall on same level from slipping, tripping and stumbling without subsequent striking against object, initial encounter; Y92.009 Unspecified place in unspecified non-institutional (private) residence as the place of occurrence of the external cause
CPT/HCPCS: 73030; 73060; 73200; 99284; 96372; J1885

== ENCOUNTER → 2023-02-01 | Outpatient (CLI) | payer MEDICARE ==
--- NOTE | 2023-02-02 10:11 | MM ---
Reason for Exam: Screening (asymptomatic). Last mammogram was performed 6 year(s) and 9 month(s) ago. Patient History: Menarche at age 11. Patient used Hormonal Contraceptives for 3 years. Maternal grandmother had breast cancer at or over age 50. Last menstrual period: 01/11/2023 Risk Values: Isabella 5 year model risk: 0.7%. NCI Lifetime model risk: 6.7%. Prior Study Comparison: 07/30/2015 Bilateral Screening Mammogram, [facility] . 05/18/2016 Bilateral Diagnostic Mammogram, [facility] . Tissue Density: There are scattered fibroglandular densities. Findings: Analyzed By CAD. There is no suspicious group of microcalcifications or new suspicious mass in either breast. Overall Assessment: Negative, BI-RAD 1 Management: Screening Mammogram of both breasts in 1 year. A clinical breast exam by your physician is recommended on an annual basis and results should be correlated with mammographic findings. [facility] will attempt to contact patient to return for supplemental views and ultrasound if indicated. Electronically signed and approved by: Nato Maddox DO
== END | disposition home or self-care (01) ==
LOC: RADMAMWWP 09:00
PROVIDERS: ATTEND Family Medicine
DX: Z12.31 Encounter for screening mammogram for malignant neoplasm of breast (principal); Z80.3 Family history of malignant neoplasm of breast
CPT/HCPCS: 77067

== ENCOUNTER 2023-05-07 15:45 | Emergency (ER) | payer MEDICARE, OTHER ==
[2023-05-07 16:19] VITALS: RESP 18; TEMP 99.1
[2023-05-07] MEDS ORDERED: PROCHLORPERAZINE INJ 10 MG/2 ML VIAL IVP PRN (16:55)
[2023-05-07] MEDS ORDERED: SODIUM CHLORIDE 0.9% 1,000 ML IV ONE (16:55)
[2023-05-07] MEDS ORDERED: diphenhydrAMINE 50 MG/ML 1 ML VIAL IVP STA (16:55)
[2023-05-07 17:24] LABS: Basophils # (A) 0.1 k/uL (0-0.2); Basophils % (A) 1 %; Eosinophils # (A) 0.3 k/uL (0-0.7); Eosinophils % (A) 2 %; HCT 41.9 % (34.0-46.0); HGB 13.7 gm/dL (11.4-16.0); Lymphocytes # (A) 3.3 k/uL (1.0-4.8); Lymphocytes % (A) 22 %; MCH 25.5 pg (25.0-35.0); MCHC 32.6 g/dL (31.0-37.0); MCV 78.3 fL (80.0-100.0); Mean Platelet Volume 9.2; Microcytosis Slight; Monocytes # (A) 0.6 k/uL (0-1.0); Monocytes % (A) 4 %; Neutrophils # (A) 10.4 k/uL (1.3-7.7); Neutrophils % (A) 70 %; Platelet Count 312 k/uL (150-450); RBC 5.36 m/uL (3.80-5.40); RDW 15.5 % (11.5-15.5); WBC 14.9 k/uL (3.8-10.6)
[2023-05-07 17:32] LABS: ALT 33 U/L (4-34); AST 42 U/L (14-36); African American GFR (CKD) >90 (>60 ml/min/1.73 sqM); Albumin 4.2 g/dL (3.5-5.0); Alkaline Phosphatase 109 U/L (38-126); Anion Gap 14 mmol/L; Blood Urea Nitrogen 6 mg/dL (7-17); Calcium 9.6 mg/dL (8.4-10.2); Carbon Dioxide 19 mmol/L (22-30); Chloride 102 mmol/L (98-107); Glucose 234 mg/dL (74-99); Non-African American GFR(CKD) >90 (>60 ml/min/1.73 sqM); Potassium 4.1 mmol/L (3.5-5.1); Sodium 135 mmol/L (137-145); Total Bilirubin 0.4 mg/dL (0.2-1.3); Total Protein 7.4 g/dL (6.3-8.2)
--- NOTE | 2023-05-07 17:44 | CT ---
EXAMINATION TYPE: CT brain wo con CT DLP: 1133.7 mGycm, Automated exposure control for dose reduction was used. DATE OF EXAM: 05/07/2023 5:29 PM COMPARISON: 04/21/2022. CLINICAL INDICATION:Female, 48 years old with history of headache, headache, dizziness TECHNIQUE: Brain: Axial CT images of the brain were obtained with coronal and sagittal reformats created and rev iewed. Contrast used: None. Oral contrast used: None. FINDINGS: Brain: Extra-axial spaces: No abnormal extra-axial fluid collections. Ventricular system: Within normal limits Cerebral parenchyma: No acute intraparenchymal hemorrhage or mass effect. The mars-white junction is well differentiated. Cerebellum: Unremarkable. Mass effect: No evidence of midline shift. Intracranial vasculature: unremarkable Soft tissues: Normal. Calvarium/osseous structures: No depressed skull fracture. Paranasal sinuses and mastoid air cells: Mild scattered paranasal sinus disease. Visualized orbits: Orbital contents are intact. IMPRESSION: No acute intracranial process.
[2023-05-07] MEDS ORDERED: KETOROLAC 15 MG/ML 1 ML VIAL IVP STA (17:47)
--- NOTE | 2023-05-07 18:20 | ED ---
General Adult HPI - General Chief complaint: Headache Stated complaint: headache, vision issues Time Seen by Provider: 05/07/23 16:31 Source: patient, RN notes reviewed Mode of arrival: ambulatory Limitations: no limitations - History of Present Illness Initial comments: 48-year-old female with no significant past medical history presents the emergency department with a chief complaint of headache. Patient reports worsening headache that is located in her right side of her face that started 4 days ago. She is complaining of accompanying symptoms of nausea and vomiting and photophobia. She reports no known history of migraines. She has taken Tylenol, Motrin and taken to staff without symptomatic relief. She denies any vision loss, cough, trauma, injury. Patient offers that she is perimenopausal and believes this may be hormonally related. - Related Data Home Medications Medication Instructions Recorded Confirmed DULoxetine HCL [Cymbalta] 120 mg PO DAILY 03/21/17 11/07/22 Albuterol Sulfate [Proair Hfa] 2 puff INHALATION RT-QID PRN 01/31/18 11/07/22 OLANZapine [ZyPREXA] 5 mg PO DAILY 01/31/18 11/07/22 Pregabalin [Lyrica] 200 mg PO TID 01/31/18 11/07/22 clonazePAM [KlonoPIN] 0.5 mg PO DAILY 01/31/18 11/07/22 Aspirin EC [Ecotrin Low Dose] 81 mg PO DAILY 01/08/22 11/07/22 Atorvastatin [Lipitor] 10 mg PO HS 01/08/22 11/07/22 Losartan Potassium 100 mg PO DAILY 01/08/22 11/07/22 OLANZapine [ZyPREXA] 10 mg PO HS 01/08/22 11/07/22 Omeprazole 40 mg PO DAILY 01/08/22 11/07/22 clonazePAM [KlonoPIN] 1.5 mg PO HS 01/08/22 11/07/22 glipiZIDE [Glucotrol] 5 mg PO BID 01/08/22 11/07/22 sitaGLIPtin PHOS/metFORMIN HCL 1 tab PO BID 01/08/22 11/07/22 [Janumet 50-1,000 mg Tablet] Previous Rx's Medication Instructions Recorded Diphenox-Atrop 2.5-0.025 mg 1 - 2 tab PO QID PRN 3 Days #30 tab 09/18/22 [Lomotil] Metoclopramide HCl [Reglan] 10 mg PO Q8HR PRN #30 tab 09/18/22 Ibuprofen [Motrin] 600 mg PO Q8HR PRN #30 tab 01/22/23 Allergies Allergy/AdvReac Type Severity Reaction Status Date / Time ampicillin [From Unasyn] Allergy Rash/Hives Verified 05/07/23 16:19 erythromycin base Allergy Rash/Hives Verified 05/07/23 16:19 [From E-Mycin] sulbactam [From Unasyn] Allergy Rash/Hives Verified 05/07/23 16:19 Review of Systems ROS Statement: Those systems with pertinent positive or pertinent negative responses have been documented in the HPI. ROS Other: All systems not noted in ROS Statement are negative. Past Medical History Past Medical History: Asthma, Diabetes Mellitus, GERD/Reflux, Hyperlipidemia, Hypertension, Osteoarthritis (OA) Additional Past Medical History / Comment(s): chronic back pain. anemia History of Any Multi-Drug Resistant Organisms: None Reported Past Surgical History: Back Surgery Additional Past Surgical History / Comment(s): spinal fusion, PAIN CLINIC PROCEDURE, spinal cord stimulator device in back Past Anesthesia/Blood Transfusion Reactions: Motion Sickness Past Psychological History: ADD/ADHD, Anxiety, Bipolar Smoking Status: Vaper Past Alcohol Use History: None Reported Past Drug Use History: Marijuana - Past Family History Mother Family Medical History: Deep Vein Thrombosis (DVT) Additional Family Medical History / Comment(s): aunt rectal, maternal grandmother breast General Exam - General Exam Comments Initial Comments: General: Alert, in no acute distress Head: atraumatic normocephalic. Eyes PERRL, EOMI intact, mucous membranes moist Respiratory: Lungs clear to auscultation bilaterally Cardiovascular: Regular rate and rhythm Abdominal: Soft without guarding or rebound Extremities: Normal inspection with full range of motion and normal capillary refill Neuroogic: alert and oriented 3, CN II-XII intact, able to ambulate with steady gait Skin: warm dry and intact with normal color Limitations: no limitations Course Vital Signs 05/07/23 16:12 Temperature 99.1 F Pulse Rate 111 H Respiratory 18 Rate Blood Pressure 139/97 O2 Sat by Pulse 96 Oximetry - Reevaluation(s) Reevaluation #1: 05/07/23 18:49 Patient reevaluated. Patient reports symptomatically relief status post medications and is ready to be discharged home at this time. Medical Decision Making - Medical Decision Making Was pt. sent in by a medical professional or institution ([facility], PRICER, urgent care, hospital, or senior living...) When possible be specific @ -[No] Did you speak to anyone other than the patient for history (EMS, parent, family, police, friend...)? What history was obtained from this source @ -[No] Did you review nursing and triage notes (agree or disagree)? Why? @ -[I reviewed and agree with nursing and triage notes] Were old charts reviewed (outside hosp., previous admission, EMS record, old EKG, old radiological studies, urgent care reports/EKG's, senior living records)? Report findings @ -[No old charts were reviewed] Differential Diagnosis (chest pain, altered mental status, abdominal pain women, abdominal pain men, vaginal bleeding, weakness, fever, dyspnea, syncope, headache, dizziness, GI bleed, back pain, seizure, CVA, palpatations, mental health, musculoskeletal)? @ -[not applicable] EKG interpreted by me (3pts min.). @ -[As above] X-rays interpreted by me (1pt min.). @ -[None done] CT interpreted by me (1pt min.). @ -T negative for any intracranial process U/S interpreted by me (1pt. min.). @ -[None done] What testing was considered but not performed or refused? (CT, X-rays, U/S, labs)? Why? @ -[None] What meds were considered but not given or refused? Why? @ -[None] Did you discuss the management of the patient with other professionals (professionals i.e. [facility], PRICER, lab, RT, psych nurse, social services technician, center aisle cashier, teacher, fisheries enforcement officer, case advocate)? Give summary @ -[No] Was smoking cessation discussed for >3mins.? @ -[No] Was critical care preformed (if so, how long)? @ -[No] Were there social determinants of health that impacted care today? How? (Homeles sness, low income, unemployed, alcoholism, drug addiction, transportation, low edu. Level, literacy, decrease access to med. care, usp, rehab)? @ -[No] Was there de-escalation of care discussed even if they declined (Discuss DNR or withdrawal of care, Hospice)? DNR status @ -[No] What co-morbidities impacted this encounter? (DM, HTN, Smoking, COPD, CAD, Cancer, CVA, ARF, Chemo, Hep., AIDS, mental health diagnosis, sleep apnea, morbid obesity)? @ -[None] Was patient admitted / discharged? Hospital course, mention meds given and route, prescriptions, significant lab abnormalities, going to OR and other pertinent info. @ -Discharged. This is a pleasant 48-year-old female who presents to the emergency department with a chief complaint of headache. Patient will thorough history and physical exam performed on the ED. Physical exam is essentially unremarkable. Heart rate regular rate and rhythm, lungs clear to auscultation bilaterally, abdomen soft nontender. There are no focal neuro deficits noted upon exam. Patient able to move all extremities freely. Patient lab work and imaging performed is essentially unremarkable. Discussed results in detail with the patient verbalized understanding all questions were addressed. She was given Toradol, Benadryl, Compazine, 1 L of IV fluids with symptomatic relief on the emergency department. She is agreeable with the plan for discharge home with return precautions discussed. Patient will be discharged home in stable condition case discussed with Dr. Erickson [facility] who agrees with plan of care Undiagnosed new problem with uncertain prognosis? @ -[No] Drug Therapy requiring intensive monitoring for toxicity (Heparin, Nitro, Insulin, Cardizem)? @ -[No] Were any procedures done? @ -[No] Diagnosis/symptom? @ -Headache Acute, or Chronic, or Acute on Chronic? @ -Acute Uncomplicated (without systemic symptoms) or Complicated (systemic symptoms)? @ -uncomplicated Side effects of treatment? @ -[No] Exacerbation, Progression, or Severe Exacerbation? @ -[No] Poses a threat to life or bodily function? How? (Chest pain, USA, CT, pneumonia, PE, COPD, DKA, ARF, appy, cholecystitis, CVA, Diverticulitis, Homicidal, Suicidal, threat to staff... and all critical care pts) @ -Low likelihood - Lab Data Result diagrams: 05/07/23 17:15 05/07/23 17:15 Lab Results 05/07/23 05/07/2323 Range/Units 17:15 17:15 18:01 WBC 14.9 H (3.8-10.6) k/uL RBC 5.36 (3.80-5.40) m/uL Hgb 13.7 (11.4-16.0) gm/dL Hct 41.9 (34.0-46.0) % MCV 78.3 L (80.0-100.0) fL MCH 25.5 (25.0-35.0) pg MCHC 32.6 (31.0-37.0) g/dL RDW 15.5 (11.5-15.5) % Plt Count 312 (150-450) k/uL MPV 9.2 Neutrophils % 70 % Lymphocytes % 22 % Monocytes % 4 % Eosinophils % 2 % Basophils % 1 % Neutrophils # 10.4 H (1.3-7.7) k/uL Lymphocytes # 3.3 (1.0-4.8) k/uL Monocytes # 0.6 (0-1.0) k/uL Eosinophils # 0.3 (0-0.7) k/uL Basophils # 0.1 (0-0.2) k/uL Microcytosis Slight Sodium 135 L (137-145) mmol/L Potassium 4.1 (3.5-5.1) mmol/L Chloride 102 (98-107) mmol/L Carbon Dioxide 19 L (22-30) mmol/L Anion Gap 14 mmol/L BUN 6 L (7-17) mg/dL Creatinine 0.51 L (0.52-1.04) mg/dL Est GFR (CKD-EPI)AfAm >90 (>60 ml/min/1.73 sqM) Est GFR (CKD-EPI)NonAf >90 (>60 ml/min/1.73 sqM) Glucose 234 H (74-99) mg/dL Calcium 9.6 (8.4-10.2) mg/dL Total Bilirubin 0.4 (0.2-1.3) mg/dL AST 42 H (14-36) U/L ALT 33 (4-34) U/L Alkaline Phosphatase 109 (38-126) U/L Total Protein 7.4 (6.3-8.2) g/dL Albumin 4.2 (3.5-5.0) g/dL Coronavirus (PCR) Not Detected (Not Detectd) Disposition Clinical Impression: Headache Disposition: HOME SELF-CARE Condition: Stable Instructions (If sedation given, give patient instructions): Acute Headache (ED) Additional Instructions: Please return to the nearest emergency department if symptoms worsen or persist Is patient prescribed a controlled substance at d/c from ED?: No Referrals: Lincoln Cobos MD [Primary Care Provider] - 1-2 days Time of Disposition: 18:50
[2023-05-07 18:59] VITALS: BP 132/87; PULSE 86
== END 2023-05-07 19:08 | disposition home or self-care (01) ==
LOC: EC 15:45
DX: R51.9 Headache, unspecified (principal); J45.909 Unspecified asthma, uncomplicated; E11.9 Type 2 diabetes mellitus without complications; K21.9 Gastro-esophageal reflux disease without esophagitis; E78.5 Hyperlipidemia, unspecified; I10 Essential (primary) hypertension; M19.90 Unspecified osteoarthritis, unspecified site; F90.9 Attention-deficit hyperactivity disorder, unspecified type; F41.9 Anxiety disorder, unspecified; F31.9 Bipolar disorder, unspecified; F17.290 Nicotine dependence, other tobacco product, uncomplicated; F12.90 Cannabis use, unspecified, uncomplicated; Z79.1 Long term (current) use of non-steroidal anti-inflammatories (NSAID); Z79.84 Long term (current) use of oral hypoglycemic drugs; Z79.899 Other long term (current) drug therapy; Z88.6 Allergy status to analgesic agent; Z88.8 Allergy status to other drugs, medicaments and biological substances; Z79.82 Long term (current) use of aspirin
CPT/HCPCS: 36415; 80053; 85025; 87635; 70450; 99284; 96374; 96375 ×2; 96361 ×2; J1200; J0780; J1885

== ENCOUNTER → 2023-06-19 | Outpatient (CLI) | payer MEDICARE, OTHER ==
--- NOTE | 2023-06-20 07:57 | US ---
EXAMINATION TYPE: US transvaginal DATE OF EXAM: 06/19/2023 COMPARISON: CT abdomen pelvis 09/18/2022 CLINICAL INDICATION: Female, 48 years old with history of N94.6 DYSMEN,N80.0 ENDO OF UTERUS; irregula r cycles can be heavy and painful TECHNIQUE: TV. Transvaginal sonographic images Date of LMP: 2 months ago EXAM MEASUREMENTS: Uterus: 8.2 x 4.0 x 3.5 cm Endometrial Stripe: 0.7 cm Right Ovary: 2.7 x 2.4 x 2.1 cm Left Ovary: 2.9 x 2.5 x 2.8 cm 1. Uterus: Anteverted wnl 2. Endometrium: wnl 3. Right Ovary: wnl 4. Left Ovary: Hypoechoic cyst = 2.0 x 1.7 x 2.1cm 5. Bilateral Adnexa: wnl 6. Posterior cul-de-sac: wnl Clint appearance of the anteverted uterus. Endometrium is within normal limits. Right ovary is unremar kable. Hypoechoic cyst within the left ovary measuring up to 2.1 cm. This demonstrates some heterogen ous echogenicity. No free fluid. Trace fluid in the cervical canal. IMPRESSION: Hypoechoic 2.1 cm left ovarian cystic lesion which may represent a hemorrhagic cyst versus endometrio ma. Follow-up ultrasound in 6-12 weeks is recommended to assess for resolution.
== END | disposition home or self-care (01) ==
LOC: RADUSWWP 16:51
PROVIDERS: ATTEND Family Medicine
DX: N94.6 Dysmenorrhea, unspecified (principal); N80.00 Endometriosis of the uterus, unspecified; N92.0 Excessive and frequent menstruation with regular cycle; N83.292 Other ovarian cyst, left side
CPT/HCPCS: 76830

== ENCOUNTER → 2023-06-21 | Outpatient (CLI) | payer MEDICARE, OTHER ==
--- NOTE | 2023-06-21 12:32 | P.SLEEP ---
History of Present Illness DATE: 06/21/2023 CONSULTATION/NEW PATIENT EVALUATION HISTORY OF PRESENT ILLNESS/SLEEP-WAKE EVALUATION: 48-year-old lady had been evaluated in the sleep center for possible obstructive sleep apnea hypopnea syndrome. SLEEP SCHEDULE: Usually sleep schedule from 10 PM to 7 AM 7 days a week. FALLING ASLEEP: Patient does have problems with falling asleep, has TV set and bedroom. DURING SLEEP: Patient has loud snoring and witnessed episodes of stop breathing during sleep. According to her she has constant kicking with her legs at night. Positive history of sweating during the sleep. No history of hypnogogical hallucinations, sleep paralysis, or cataplexy. DURING THE DAY/WAKE STATE: During the day patient has difficulties to pay attention, has problems with memory, concentration, depression and anxiety. Bradley sleepiness scale is 6. Patient may take up to 4 rest periods during the day. PAST MEDICAL HISTORY: Hypertension, diabetes mellitus, depression, back problems. PAST SURGICAL HISTORY: L3-L5 fusion, status post spinal cord stimulator insertion. MEDICATIONS: Cymbalta 60 mg twice a day, atorvastatin 60 mg once a day, glipizide 10 mg twice a day, Janumet twice a day, losartan 100 mg once a day, omeprazole 40 mg once a day, Lyrica 200 mg 3 times a day. SOCIAL HISTORY: Patient quit nicotine smoking 6 years ago, vaped now, alcohol consumption none. FAMILY HISTORY: Hypertension, heart problems, diabetes, mental illness. REVIEW OF SYSTEMS: Loud snoring, witnessed sleep apneas. No fevers. No double vision. No recent chest pain. No shortness of breath. No abdominal pain. No bleeding episodes. No blood in urine. No seizure episodes. PHYSICAL EXAMINATION: GENERAL: A pleasant patient without any distress. VITAL SIGNS: BP 108/73 , HR 103 , RR 12 , weight 265 pounds, height 5 foot 9 inches, body mass index 39.1 . HEENT: PERRLA, EOMI. Evaluation of oropharynx showed tongue protrudes midline, low position of soft palate Mallampati 23. NECK: Supple. No JVD. Thyroid is not palpable. 18 inches in circumference. LUNGS: Clear to percussion and to auscultation. Good air exchange. No wheezing or rhonchi. HEART: S1, S2 regular. No murmurs, gallops or rubs. ABDOMEN: Soft and nontender. Bowel sounds are present. No organomegaly appreciated. EXTREMITIES: No clubbing or cyanosis. VARNISHING UNIT TOOL SETTER: Awake, alert, and oriented x3. Cranial nerves 2 to 7 intact. There is no fasciculation or atrophy noted. No focal deficits observed. ASSESSMENT: 1. Loud snoring, witnessed episodes of stop breathing during the sleep, wide neck 18 inches in circumference obstructive sleep apnea hypopnea syndrome. 2. History of constant kicking during the sleep, periodic limb movements. 3. Obesity BMI 39.1. 4. Hypertension. 5 diabetes mellitus. 6 . Depression. 7. Status post L3-L5 fusion. 8. Status post spinal cord stimulator insertion. PLAN: 1. Polysomnography for evaluation of patient's breathing during sleep and also to check for periodic limb movements. 2. CPAP/BiPAP titration if sleep study confirms obstructive sleep apnea- hypopnea syndrome. 3. Preferable position during sleep on the side. 4. No driving if patient feels any sleepiness. Patient is aware of civil and criminal liability for unsafe driving. 5. Sleep hygiene with regular sleep time for at least 7.5-8 hours. 6. Watching and losing weight. Thank you very much for referring this patient for consultation. Sincerely, Rich Cornelius MD, PhD, FAASM. Diplomat of [employer], Sleep Medicine Board by [employer] [facility] [place] Past Medical History Past Medical History: Asthma, Diabetes Mellitus, GERD/Reflux, Hyperlipidemia, Hypertension, Osteoarthritis (OA) Additional Past Medical History / Comment(s): chronic back pain. anemia History of Any Multi-Drug Resistant Organisms: None Reported Past Surgical History: Back Surgery Additional Past Surgical History / Comment(s): spinal fusion, PAIN CLINIC PROCEDURE, spinal cord stimulator device in back Past Anesthesia/Blood Transfusion Reactions: Motion Sickness Past Psychological History: ADD/ADHD, Anxiety, Bipolar Smoking Status: Vaper Past Alcohol Use History: None Reported Past Drug Use History: Marijuana - Past Family History Mother Family Medical History: Deep Vein Thrombosis (DVT) Additional Family Medical History / Comment(s): aunt rectal, maternal grandmother breast Medications and Allergies Home Medications Medication Instructions Recorded Confirmed Type DULoxetine HCL [Cymbalta] 120 mg PO DAILY 03/21/17 11/07/22 History Albuterol Sulfate [Proair Hfa] 2 puff INHALATION RT-QID PRN 01/31/18 11/07/22 History OLANZapine [ZyPREXA] 5 mg PO DAILY 01/31/18 11/07/22 History Pregabalin [Lyrica] 200 mg PO TID 01/31/18 11/07/22 History clonazePAM [KlonoPIN] 0.5 mg PO DAILY 01/31/18 11/07/22 History Aspirin EC [Ecotrin Low Dose] 81 mg PO DAILY 01/08/22 11/07/22 History Atorvastatin [Lipitor] 10 mg PO HS 01/08/22 11/07/22 History Losartan Potassium 100 mg PO DAILY 01/08/22 11/07/22 History OLANZapine [ZyPREXA] 10 mg PO HS 01/08/22 11/07/22 History Omeprazole 40 mg PO DAILY 01/08/22 11/07/22 History clonazePAM [KlonoPIN] 1.5 mg PO HS 01/08/22 11/07/22 History glipiZIDE [Glucotrol] 5 mg PO BID 01/08/22 11/07/22 History sitaGLIPtin PHOS/metFORMIN HCL 1 tab PO BID 01/08/22 11/07/22 History [Janumet 50-1,000 mg Tablet] Diphenox-Atrop 2.5-0.025 mg 1 - 2 tab PO QID PRN 3 Days #30 tab 09/18/22 11/07/22 Rx [Lomotil] Metoclopramide HCl [Reglan] 10 mg PO Q8HR PRN #30 tab 09/18/22 11/07/22 Rx Ibuprofen [Motrin] 600 mg PO Q8HR PRN #30 tab 01/22/23 Rx Allergies Allergy/AdvReac Type Severity Reaction Status Date / Time ampicillin [From Unasyn] Allergy Rash/Hives Verified 05/07/23 16:19 erythromycin base Allergy Rash/Hives Verified 05/07/23 16:19 [From E-Mycin] sulbactam [From Unasyn] Allergy Rash/Hives Verified 05/07/23 16:19 Sleep Note - Sleep Note Sleep Note: Temperature: Pulse Rate: Respiratory Rate: Blood Pressure: SpO2: Height: Weight: BMI: Neck Circumference:
== END ==
LOC: 3 N SLEEP 11:40
PROVIDERS: ATTEND Internal Medicine
DX: G47.33 Obstructive sleep apnea (adult) (pediatric) (principal); E66.9 Obesity, unspecified; I10 Essential (primary) hypertension; E11.9 Type 2 diabetes mellitus without complications; G47.61 Periodic limb movement disorder; F32.A Depression, unspecified; F17.200 Nicotine dependence, unspecified, uncomplicated; Z98.890 Other specified postprocedural states; Z68.39 Body mass index [BMI] 39.0-39.9, adult; Z88.8 Allergy status to other drugs, medicaments and biological substances; Z88.0 Allergy status to penicillin; Z79.84 Long term (current) use of oral hypoglycemic drugs; Z79.899 Other long term (current) drug therapy
CPT/HCPCS: G0463 ×2; 99211; 99212

== ENCOUNTER 2023-07-24 19:35 | Outpatient (CLI) | payer MEDICARE, OTHER | END 2023-07-25 19:00 | disposition home or self-care (01) | LOC: 3 N SLEEP 19:35 | PROVIDERS: ATTEND Internal Medicine | DX: G47.33 Obstructive sleep apnea (adult) (pediatric) (principal); G47.61 Periodic limb movement disorder; F17.200 Nicotine dependence, unspecified, uncomplicated; Z88.0 Allergy status to penicillin; Z88.1 Allergy status to other antibiotic agents | CPT/HCPCS: 95810 ==

== ENCOUNTER → 2023-10-03 | Outpatient (CLI) | payer MEDICARE, OTHER ==
--- NOTE | 2023-10-03 18:03 | P.PN ---
Subjective DATE: 10/03/2023 FOLLOW UP VISIT. Patient returned to sleep center for follow-up visit to discuss results of polysomnogram and following plan. I discussed results of polysomnogram with patient in details. No significant respiratory abnormalities have been documented. Normal oxygenation during sleep. Periodic limb movements have been documented 21.6 times per hour with 0.2 micro-arousals per hour. [place] Sleepiness Scale today is 3, which is normal. Loud snoring have been documented. . MEDICATIONS:1. Glipizide 10 mg twice a day 2. Trulicity 3. Janumet 4. Cymbalta 5. Hydroxyzine 6. Atorvastatin 7. Losartan 8. Lyrica During physical exam: GENERAL: A pleasant patient without any distress. VITAL SIGNS: BP 121/86, HR 106, RR 18 , weight 265.0, temperature 98.0, oxygen saturation at room air 95% . HEENT: PERRLA, EOMI. NECK: Supple. No JVD. LUNGS: Clear to percussion and to auscultation. Good air exchange. No wheezing or rhonchi. HEART: S1, S2 regular. ABDOMEN: Soft and nontender. EXTREMITIES: No clubbing or cyanosis. HUMAN RESOURCES SERVICES SPECIALIST: Awake, alert, and oriented x3. No focal deficit. Impressions: 1. No significant respiratory abnormalities have been documented during the sleep study. Normal oxygenation during sleep. 2. Loud snoring have been documented. 3. Periodic limb movements have been documented, but without significant amount of micro-arousals. 4. Hypertension. 5. Diabetes mellitus. 6. Depression. 7. Status post spinal cord stimulator insertion. Plan: 1. Iron profile with ferritin level should be checked. Low level of iron may increase risk for periodic limb movements 2. Sleep hygiene with regular time in bed for at least 8 hours. 3. Losing weight program 4. Precautions related to driving. No driving if feel any sleepiness. Patient is aware about civil and criminal liability for unsafe driving, promised to follow recommendations. 5. I discussed with patient possibility to start medications for preventing cough periodic limb movements, but because there is no significant amount of micro-arousals we agreed that of the present time it is not necessary. 6. Patient will consider possible evaluation by ENT physician for treatment of snoring. 7. Follow up visit in one year if necessary. Thank you very much for allowing me to participate in the management of your patient. Rich Cornelius MD, PhD, FAASM. Diplomat of [employer], Sleep Medicine Board by [employer] of [facility] [place]
== END ==
LOC: 3 N SLEEP 14:36
PROVIDERS: ATTEND Internal Medicine
DX: R06.83 Snoring (principal); I10 Essential (primary) hypertension; E11.9 Type 2 diabetes mellitus without complications; G47.61 Periodic limb movement disorder; F32.A Depression, unspecified; F17.200 Nicotine dependence, unspecified, uncomplicated; Z79.84 Long term (current) use of oral hypoglycemic drugs; Z79.899 Other long term (current) drug therapy; Z79.85 Long-term (current) use of injectable non-insulin antidiabetic drugs; Z96.82 Presence of neurostimulator; Z88.1 Allergy status to other antibiotic agents; Z88.8 Allergy status to other drugs, medicaments and biological substances; Z79.82 Long term (current) use of aspirin
CPT/HCPCS: 99212

== ENCOUNTER 2023-12-27 15:19 | Observation (INO) | payer MEDICARE, OTHER ==
--- NOTE | 2023-12-27 15:51 | ED ---
Altered Mental Status HPI - General Chief Complaint: Recheck/Abnormal Lab/Rx Stated Complaint: involuntary movements Time Seen by Provider: 12/27/23 15:25 Source: patient, RN notes reviewed, old records reviewed Mode of arrival: ambulatory Limitations: no limitations - History of Present Illness Initial Comments: This is a 48-year-old female to the ER for evaluation today. Patient presents today for evaluation regarding anxiety reaction possible medication reaction was sent in for evaluation of possible serotonin syndrome. Patient is having an inv oluntary muscular movement and facial movement when she is trying to speak with incomprehensible words, that she noticed this today MD Complaint: altered mental status (At times altered speech) -: days(s) - Related Data Home Medications Medication Instructions Recorded Confirmed DULoxetine HCL [Cymbalta] 120 mg PO DAILY 03/21/17 11/07/22 Albuterol Sulfate [Proair Hfa] 2 puff INHALATION RT-QID PRN 01/31/18 11/07/22 OLANZapine [ZyPREXA] 5 mg PO DAILY 01/31/18 11/07/22 Pregabalin [Lyrica] 200 mg PO TID 01/31/18 11/07/22 clonazePAM [KlonoPIN] 0.5 mg PO DAILY 01/31/18 11/07/22 Aspirin EC [Ecotrin Low Dose] 81 mg PO DAILY 01/08/22 11/07/22 Atorvastatin [Lipitor] 10 mg PO HS 01/08/22 11/07/22 Losartan Potassium 100 mg PO DAILY 01/08/22 11/07/22 OLANZapine [ZyPREXA] 10 mg PO HS 01/08/22 11/07/22 Omeprazole 40 mg PO DAILY 01/08/22 11/07/22 clonazePAM [KlonoPIN] 1.5 mg PO HS 01/08/22 11/07/22 glipiZIDE [Glucotrol] 5 mg PO BID 01/08/22 11/07/22 sitaGLIPtin PHOS/metFORMIN HCL 1 tab PO BID 01/08/22 11/07/22 [Janumet 50-1,000 mg Tablet] Previous Rx's Medication Instructions Recorded Diphenox-Atrop 2.5-0.025 mg 1 - 2 tab PO QID PRN 3 Days #30 tab 09/18/22 [Lomotil] Metoclopramide HCl [Reglan] 10 mg PO Q8HR PRN #30 tab 09/18/22 Ibuprofen [Motrin] 600 mg PO Q8HR PRN #30 tab 01/22/23 Allergies Allergy/AdvReac Type Severity Reaction Status Date / Time ampicillin [From Unasyn] Allergy Rash/Hives Verified 12/27/23 15:23 erythromycin base Allergy Rash/Hives Verified 12/27/23 15:23 [From E-Mycin] sulbactam [From Unasyn] Allergy Rash/Hives Verified 12/27/23 15:23 Review of Systems ROS Statement: Those systems with pertinent positive or pertinent negative responses have been documented in the HPI. ROS Other: All systems not noted in ROS Statement are negative. Past Medical History Past Medical History: Asthma, Diabetes Mellitus, GERD/Reflux, Hyperlipidemia, Hypertension, Osteoarthritis (OA) Additional Past Medical History / Comment(s): chronic back pain. anemia History of Any Multi-Drug Resistant Organisms: None Reported Past Surgical History: Back Surgery Additional Past Surgical History / Comment(s): spinal fusion, PAIN CLINIC PROCEDURE, spinal cord stimulator device in back Past Anesthesia/Blood Transfusion Reactions: Motion Sickness Past Psychological History: ADD/ADHD, Anxiety, Bipolar Smoking Status: Vaper Past Alcohol Use History: None Reported Past Drug Use History: Marijuana - Past Family History Mother Family Medical History: Deep Vein Thrombosis (DVT) Additional Family Medical History / Comment(s): aunt rectal, maternal grandmother breast General Exam Limitations: no limitations General appearance: alert, in no apparent distress Head exam: Present: atraumatic, normocephalic, normal inspection Eye exam: Present: normal appearance, PERRL, EOMI. Absent: scleral icterus, conjunctival injection, periorbital swelling ENT exam: Present: normal exam, mucous membranes moist Neck exam: Present: normal inspection. Absent: tenderness, meningismus, lymphadenopathy Respiratory exam: Present: normal lung sounds bilaterally. Absent: respiratory distress, wheezes, rales, rhonchi, stridor Cardiovascular Exam: Present: regular rate, normal rhythm, normal heart sounds. Absent: systolic murmur, diastolic murmur, rubs, gallop, clicks GI/Abdominal exam: Present: soft, normal bowel sounds. Absent: distended, ten derness, guarding, rebound, rigid Extremities exam: Present: normal inspection, full ROM, normal capillary refill. Absent: tenderness, pedal edema, joint swelling, calf tenderness Back exam: Present: normal inspection Neurological exam: Present: alert, oriented X3, CN II-XII intact Psychiatric exam: Present: normal affect, normal mood Skin exam: Present: warm, dry, intact, normal color. Absent: rash Course Vital Signs 12/27/23 12/27/23 12/27/23 15:20 17:00 17:30 Temperature 97.6 F Pulse Rate 119 H 103 H 105 H Respiratory 20 17 17 Rate Blood Pressure 102/64 111/78 105/79 O2 Sat by Pulse 96 99 99 Oximetry - Reevaluation(s) Reevaluation #1: 12/27/23 17:41 Medical records reviewed Reevaluation #2: 12/27/23 17:41 Patient symptoms are improved Reevaluation #3: 12/27/23 17:44 Patient symptoms are unchanged here in the ER still with difficulty in speech Reevaluation #4: Was pt. sent in by a medical professional or institution (, PA, SCHOOL BUS DISPATCHER, urgent care, hospital, or custodial...) When possible be specific @ -no Did you speak to anyone other than the patient for history (EMS, parent, family, police, friend...)? What history was obtained from this source @ -no Did you review nursing and triage notes (agree or disagree)? Why? @ -agree Are old charts reviewed (outside hosp., previous admission, EMS record, old EKG, old radiological studies, urgent care reports/EKG's, custodial records)? Report findings @ -yes Differential Diagnosis (chest pain, altered mental status, abdominal pain women, abdominal pain men, vaginal bleeding, weakness, fever, dyspnea, syncope, headache, dizziness, GI bleed, back pain, seizure, CVA, palpatations, mental health, musculoskeletal)? @ -prior EKG interpreted by me (3pts min.). @ -yes X-rays interpreted by me (1pt min.). @ -yes negative for acute disease CT interpreted by me (1pt min.). @ -no U/S interpreted by me (1pt. min.). @ -no What testing was considered but not performed or refused? (CT, X-rays, U/S, labs )? Why? @ -none What meds were considered but not given or refused? Why? @ -none Did you discuss the management of the patient with other professionals (professionals i.e. , PA, SCHOOL BUS DISPATCHER, lab, RT, psych nurse, social scientist, flatwork ironer, teacher, regulatory compliance officer, egg caser)? Give summary @ -no Was smoking cessation discussed for >3mins.? @ -no Was critical care preformed (if so, how long)? @ -no Were there social determinants of health that impacted care today? How? (Homelessness, low income, unemployed, alcoholism, drug addiction, transportation, low edu. Level, literacy, decrease access to med. care, fdc, rehab)? @ -none Was there de-escalation of care discussed even if they declined (Discuss DNR or withdrawal of care, Hospice)? DNR status @ -no What co-morbidities impacted this encounter? (DM, HTN, Smoking, COPD, CAD, Cancer, CVA, ARF, Chemo, Hep., AIDS, mental health diagnosis, sleep apnea, morbid obesity)? @ -none Was patient admitted / discharged? Hospital course, mention meds given and route, prescriptions, significant lab abnormalities, going to OR and other pertinent info. @ - Undiagnosed new problem with uncertain prognosis? @ -no Drug Therapy requiring intensive monitoring for toxicity (Heparin, Nitro, Insulin, Cardizem)? @ -no Were any procedures done? @ -no Diagnosis/symptom? @ - Acute, or Chronic, or Acute on Chronic? @ -Acute Uncomplicated (without systemic symptoms) or Complicated (systemic symptoms)? @ -Complicated Side effects of treatment? @ -no Exacerbation, Progression, or Severe Exacerbation? @ -exacerbation Poses a threat to life or bodily function? How? (Chest pain, [place], [place], pneumonia, PE, COPD, DKA, ARF, appy, cholecystitis, CVA, Diverticulitis, Homicidal, Suicidal, threat to staff... and all critical care pts) @ -yes Reevaluation #5: Differential Altered Mental Status: Hypoglycemia, DKA, hypercapnia, ETOH, overdose, CO poisoning, trauma, myxedema coma, HTN encephalopathy, infection, encephalitis, psychosis, intercranial hemorrhage, hepatic encephalopathy, meningitis, CVA, this is not meant to be an all-inclusive list - Consultations Consultation #1: Spoke with [facility] regarding admission and he agrees Medical Decision Making - Medical Decision Making 48 female to ER with uncontrolled neurologic speech involuntary movements possibly medication related. Sent in for serotonin syndrome evaluation patient is showing no signs of serotonin syndrome but will admit for neurology and psychiatry to see as patient does not feel comfortable with discharge and she does not want the symptoms to be permanent - Lab Data Result diagrams: 12/27/23 15:48 12/27/23 15:48 Lab Results 12/27/23 12/27/23 12/27/23 Range/Units 15:48 15:48 15:48 WBC 15.9 H (3.8-10.6) k/uL RBC 4.89 (3.80-5.40) m/uL Hgb 13.6 (11.4-16.0) gm/dL Hct 41.6 (34.0-46.0) % MCV 85.1 (80.0-100.0) fL MCH 27.9 (25.0-35.0) pg MCHC 32.7 (31.0-37.0) g/dL RDW 13.2 (11.5-15.5) % Plt Count 250 (150-450) k/uL MPV 10.3 Neutrophils % 78 % Lymphocytes % 15 % Monocytes % 4 % Eosinophils % 2 % Basophils % 0 % Neutrophils # 12.3 H (1.3-7.7) k/uL Lymphocytes # 2.3 (1.0-4.8) k/uL Monocytes # 0.7 (0-1.0) k/uL Eosinophils # 0.3 (0-0.7) k/uL Basophils # 0.1 (0-0.2) k/uL PT 10.2 (10.0-12.5) sec INR 0.9 (<1.2) APTT 26.7 (22.0-30.0) sec Sodium 133 L (137-145) mmol/L Potassium 4.0 (3.5-5.1) mmol/L Chloride 101 (98-107) mmol/L Carbon Dioxide 20 L (22-30) mmol/L Anion Gap 12 mmol/L BUN 11 (7-17) mg/dL Creatinine 0.82 (0.52-1.04) mg/dL Est GFR (CKD-EPI)AfAm >90 (>60 ml/min/1.73 sqM) Est GFR (CKD-EPI)NonAf 84 (>60 ml/min/1.73 sqM) Glucose 292 H (74-99) mg/dL POC Glucose (mg/dL) (70-110) mg/dL POC Glu Statement Services Representative ID Plasma Lactic Acid Yeyo (0.7-2.0) mmol/L Calcium 9.8 (8.4-10.2) mg/dL Phosphorus 3.8 (2.5-4.5) mg/dL Magnesium 1.6 (1.6-2.3) mg/dL Total Bilirubin 0.5 (0.2-1.3) mg/dL AST 48 H (14-36) U/L ALT 49 H (4-34) U/L Alkaline Phosphatase 117 (38-126) U/L Troponin I (0.000-0.034) ng/mL Total Protein 7.2 (6.3-8.2) g/dL Albumin 4.4 (3.5-5.0) g/dL Salicylates <1.0 mg/dL Acetaminophen <10.0 ug/mL 12/27/23 12/27/23 12/27/23 Range/Units 15:48 15:48 16:46 WBC (3.8-10.6) k/uL RBC (3.80-5.40) m/uL Hgb (11.4-16.0) gm/dL Hct (34.0-46.0) % MCV (80.0-100.0) fL MCH (25.0-35.0) pg MCHC (31.0-37.0) g/dL RDW (11.5-15.5) % Plt Count (150-450) k/uL MPV Neutrophils % % Lymphocytes % % Monocytes % % Eosinophils % % Basophils % % Neutrophils # (1.3-7.7) k/uL Lymphocytes # (1.0-4.8) k/uL Monocytes # (0-1.0) k/uL Eosinophils # (0-0.7) k/uL Basophils # (0-0.2) k/uL PT (10.0-12.5) sec INR (<1.2) APTT (22.0-30.0) sec Sodium (137-145) mmol/L Potassium (3.5-5.1) mmol/L Chloride (98-107) mmol/L Carbon Dioxide (22-30) mmol/L Anion Gap mmol/L BUN (7-17) mg/dL Creatinine (0.52-1.04) mg/dL Est GFR (CKD-EPI)AfAm (>60 ml/min/1.73 sqM) Est GFR (CKD-EPI)NonAf (>60 ml/min/1.73 sqM) Glucose (74-99) mg/dL POC Glucose (mg/dL) 276 H (70-110) mg/dL POC Glu Statement Services Representative ID Angelina Cai Plasma Lactic Acid Yeyo 3.1 H* (0.7-2.0) mmol/L Calcium (8.4-10.2) mg/dL Phosphorus (2.5-4.5) mg/dL Magnesium (1.6-2.3) mg/dL Total Bilirubin (0.2-1.3) mg/dL AST (14-36) U/L ALT (4-34) U/L Alkaline Phosphatase (38-126) U/L Troponin I <0.012 (0.000-0.034) ng/mL Total Protein (6.3-8.2) g/dL Albumin (3.5-5.0) g/dL Salicylates mg/dL Acetaminophen ug/mL Disposition Clinical Impression: Medication reaction, Extrapyramidal syndrome, Dystonic drug reaction Disposition: HOME SELF-CARE Condition: Good Is patient prescribed a controlled substance at d/c from ED?: No Referrals: Lincoln Cobos MD [Primary Care Provider] - 1-2 days Time of Disposition: 17:35
[2023-12-27 16:05] LABS: Basophils # (A) 0.1 k/uL (0-0.2); Basophils % (A) 0 %; Eosinophils # (A) 0.3 k/uL (0-0.7); Eosinophils % (A) 2 %; HCT 41.6 % (34.0-46.0); HGB 13.6 gm/dL (11.4-16.0); Lymphocytes # (A) 2.3 k/uL (1.0-4.8); Lymphocytes % (A) 15 %; MCH 27.9 pg (25.0-35.0); MCHC 32.7 g/dL (31.0-37.0); MCV 85.1 fL (80.0-100.0); Mean Platelet Volume 10.3; Monocytes # (A) 0.7 k/uL (0-1.0); Monocytes % (A) 4 %; Neutrophils # (A) 12.3 k/uL (1.3-7.7); Neutrophils % (A) 78 %; Platelet Count 250 k/uL (150-450); RBC 4.89 m/uL (3.80-5.40); RDW 13.2 % (11.5-15.5); WBC 15.9 k/uL (3.8-10.6)
[2023-12-27 16:18] LABS: ALT 49 U/L (4-34); AST 48 U/L (14-36); Acetaminophen <10.0 ug/mL; African American GFR (CKD) >90 (>60 ml/min/1.73 sqM); Albumin 4.4 g/dL (3.5-5.0); Alkaline Phosphatase 117 U/L (38-126); Anion Gap 12 mmol/L; Blood Urea Nitrogen 11 mg/dL (7-17); Calcium 9.8 mg/dL (8.4-10.2); Carbon Dioxide 20 mmol/L (22-30); Chloride 101 mmol/L (98-107); Glucose 292 mg/dL (74-99); Magnesium 1.6 mg/dL (1.6-2.3); Non-African American GFR(CKD) 84 (>60 ml/min/1.73 sqM); Phosphorus 3.8 mg/dL (2.5-4.5); Salicylate <1.0 mg/dL; Sodium 133 mmol/L (137-145); Total Bilirubin 0.5 mg/dL (0.2-1.3); Total Protein 7.2 g/dL (6.3-8.2)
[2023-12-27 16:21] LABS: INR 0.9 (<1.2); Partial Thromboplastin Time 26.7 sec (22.0-30.0); Prothrombin Time 10.2 sec (10.0-12.5)
[2023-12-27] MEDS: diphenhydrAMINE 50 MG/ML 1 ML VIAL IVP STA (16:30)
[2023-12-27] MEDS: SODIUM CHLORIDE 0.9% 1,000 ML IV STA (16:30)
[2023-12-27 16:49] LABS: Glucose,Whole Blood 276 mg/dL (70-110)
[2023-12-27] MEDS ORDERED: NALOXONE 0.4 MG/ML 1 ML VIAL IV PRN (17:31)
[2023-12-27] MEDS ORDERED: ONDANSETRON 4 MG/2 ML VIAL IVP PRN (17:31)
[2023-12-27] MEDS ORDERED: LORazepam 2 MG/ML INJ IV PRN (17:37)
[2023-12-27] MEDS ORDERED: diphenhydrAMINE 50 MG/ML 1 ML VIAL IM PRN (17:37)
[2023-12-27] MEDS: LORazepam 1 MG TAB PO STA (18:53)
[2023-12-27] MEDS: SODIUM CHLORIDE 0.9% 1,000 ML IV SCH (18:54)
[2023-12-27 19:47] LABS: Appearance,Urine Cloudy (Clear); Bacteria,Urine Rare /hpf; Bilirubin,Urine Negative (Negative); Blood,Urine Negative (Negative); Color,Urine Colorless; Glucose,Urine (UA) Negative (Negative); Ketones,Urine Negative (Negative); Leukocyte Esterase,Urine Negative (Negative); Mucus,Urine Rare /hpf; Nitrite,Urine Negative (Negative); Protein,Urine Negative (Negative); Specific Gravity,Urine 1.004 (1.001-1.035); Squamous Epithelial Cell,Urine 6 /hpf (0-4); Urobilinogen,Urine <2.0 mg/dL (<2.0); WBC,Urine 2 /hpf (0-5)
[2023-12-27 21:32] LABS: Glucose,Whole Blood 168 mg/dL (70-110)
[2023-12-27] MEDS: OLANZapine 5 MG TAB PO SCH (22:35)
[2023-12-27] MEDS: traMADol 50 MG TAB PO SCH (22:35)
[2023-12-27] MEDS: INSULIN ASPART (NovoLOG) 100 UNIT/ML VIAL SQ SCH (22:38)
[2023-12-27] MEDS: PREGABALIN 100 MG CAP PO SCH (23:10)
[2023-12-28 06:42] LABS: Glucose,Whole Blood 205 mg/dL (70-110)
[2023-12-28] MEDS ORDERED: DEXTROSE 50% SYRINGE 50 ML IVP PRN ×2 (09:52)
--- NOTE | 2023-12-28 10:06 | P.CN ---
Psychiatric Consult - . Consult date: 12/28/23 Consult:: 12/28/23 10:01 Patient Name: Aura Ospina Date of : 73 Patient Status: Observation Attending Provider: Amanda Gannon Date: 12/28/23 Initialization Date: 12/27/23 15:51 Psychiatric assessment on this 48-year-old female who is currently hospitalized with a possible adverse reaction after she was recently started on Luvox Patient reports that she has a long history of mood disorder and that she also has severe OCD where she gets stuck with #3's She says that she sometimes obsesses over things and that she cannot postpone things until she has to act on her thoughts like taking out the garbage in the middle of the night Patient states that she's been under treatment with a therapist and psychiatrist for years she said that she is tried several different medications and was recently started also on Luvox Patient stated that she does not know the dose she is already on the Cymbalta 120 mg daily as well as Zyprexa from her PCP Patient states that the first day she had a mild jerky movements of her hands and that the following day she seemed to have difficulty in forming appropriate speech Patient states that this morning she woke up and everything has gone away She said that she had taken the Luvox only for 2 days She states that she is back to her old self She says that her last alcohol use was about to warrant to all Patient states that she currently lives alone and is dependent She denies any other issues or concerns She denies any previous psychiatric hospitalizations Mental status examination: Noncontributory Patient is alert and oriented to time place and person Affect was euthymic Thought processes are goal-directed sequential and logical There is no evidence of any overt psychosis There is no involuntary movements or dystonic movements Formal and operational judgment and insight appears to be fair Diagnostic impression: Mood disorder unspecified chronic in remission Obsessive-compulsive disorder by history Acute dystonic reaction resolved most likely related to medication interactions Involuntary moment disorder resolved most likely related to medication interactions Plan: The patient at this time appears to be back to her baseline level of functioning Patient does not meet the criteria for inpatient psychiatric hospitalization Patient would be recommended to hold off on the Cymbalta also for some time to avoid any serotonin induction and to follow-up with her psychiatrist within this week for further follow-up and management Patient may have reached a level of maximum benefit from her medication interventions and AV candidate for more intensive CBT Thank you very much for the kind referral and please feel free to to contact me if any further questions Kaz Gutierrez M.D.
[2023-12-28 10:34] LABS: ALT 46 U/L (4-34); AST 58 U/L (14-36); African American GFR (CKD) >90 (>60 ml/min/1.73 sqM); Albumin 4.1 g/dL (3.5-5.0); Albumin/Globulin Ratio 1.6; Alkaline Phosphatase 104 U/L (38-126); Anion Gap 12 mmol/L; Blood Urea Nitrogen 7 mg/dL (7-17); Calcium 9.5 mg/dL (8.4-10.2); Carbon Dioxide 24 mmol/L (22-30); Chloride 98 mmol/L (98-107); Globulin 2.6 g/dL; Glucose 373 mg/dL (74-99); Non-African American GFR(CKD) >90 (>60 ml/min/1.73 sqM); Sodium 134 mmol/L (137-145); Total Bilirubin 0.6 mg/dL (0.2-1.3); Total Protein 6.7 g/dL (6.3-8.2)
[2023-12-28] MEDS ORDERED: ALBUTEROL NEBULIZED 2.5 MG/3 ML INHALATION PRN (11:31)
[2023-12-28 12:29] LABS: Glucose,Whole Blood 238 mg/dL (70-110)
[2023-12-28] MEDS: SODIUM CHLORIDE 0.9% 1,000 ML IV SCH (12:40)
--- NOTE | 2023-12-28 13:07 | P.HPIM ---
History of Present Illness H&P Date: 12/28/23 This is a pleasant 48-year-old female with medical history significant for asthma, diabetes mellitus, gastroesophageal reflux, hypertension, hyperlipidemia, POTS, anemia, bipolar, anxiety, ADD, OCD, current smoker and marijuana use. Patient presents to the hospital with complaints of uncontrollable muscle twitching and movement of the upper extremities as well as difficulty finding her words. Patient was recently started on Luvox 4 days ago by her outpatient psychiatrist [facility]. She was advised to come to the ER for further evaluation. On admission her white blood cell count is 15.9, sodium 134, glucose of 292, lactic acid elevated at 3.1, AST and ALT are elevated, troponin level negative. Urinalysis is not suggestive of infection. EKG was done showing sinus tachycardia with a short UT interval heart rate of [address] or T wave abnormalities noted. Patient is currently denying any headache, no shortness of breath no chest discomfort. No dizziness or lightheadedness. No nausea vomiting or diarrhea. She is not having any focal weakness or deficits. No difficulty swallowing. There is concern for dystonia patient was admitted to the hospital under medicine with consults placed to psychiatry and neurology. All symptoms have resolved at this time. REVIEW OF SYSTEMS: CONSTITUTIONAL: No fever, no malaise, no fatigue. HEENT: No recent visual problems or hearing problems. Denied any sore throat. CARDIOVASCULAR: No chest pain, orthopnea, PND, no palpitations, no syncope. PULMONARY: No shortness of breath, no cough, no hemoptysis. GASTROINTESTINAL: No diarrhea, no nausea, no vomiting, no abdominal pain. NEUROLOGICAL: No headaches, no weakness, no numbness. HEMATOLOGICAL: Denies any bleeding or petechiae. GENITOURINARY: Denies any burning micturition, frequency, or urgency. MUSCULOSKELETAL/RHEUMATOLOGICAL: Denies any joint pain, swelling, or any muscle pain. ENDOCRINE: Denies any polyuria or polydipsia. The rest of the 14-point review of systems is negative. PHYSICAL EXAMINATION: GENERAL: The patient is alert and oriented x3, not in any acute distress. Well developed, well nourished. HEENT: Pupils are round and equally reacting to light. EOMI. No scleral icterus. No conjunctival pallor. Normocephalic, atraumatic. No pharyngeal erythema. No thyromegaly. CARDIOVASCULAR: S1 and S2 present. No murmurs, rubs, or gallops. PULMONARY: Chest is clear to auscultation, no wheezing or crackles. ABDOMEN: Soft, nontender, nondistended, normoactive bowel sounds. No palpable organomegaly. MUSCULOSKELETAL: No joint swelling or deformity. EXTREMITIES: No cyanosis, clubbing, or pedal edema. NEUROLOGICAL: Gross neurological examination did not reveal any focal deficits. SKIN: No rashes. Assessment and Plan Acute dystonic reaction likely from medication interaction and affect, patient was recently started on Luvox and will recommend to discontinue this medication on discharge. Leukocytosis, reactive Lactic acidosis due to the dystonia Hx of Bipolar, OCD [facility] Diabetes mellitus type 2 with hyperglycemia was started on Lantus and Mounjaro outpatient in the last week by her PCP and has a follow-up appointment on Sunday for further recommendations. Hyponatremia secondary to the hyperglycemia Elevated LFTs patient has history of non alcohol fatty liver History of asthma with no acute exacerbation History of gastroesophageal reflux disease Hypertension currently low normal and would recommend to hold losartan on discharge; monitor blood pressure and follow-up with Dr. Cobos on Sunday. Hyperlipidemia maintained on statin Osteoarthritis History of POTS Chronic nicotine use Marijuana use GI prophylaxis Full code Pending evaluation and clearance by neurology patient will be discharged home today. Follow-up Dr. Cobos in the office on Sunday. The impression and plan of care has been dictated by Marjorie Baker Nurse Practitioner as directed. Dr. Tej MD I have performed a history and physical examination and medical decision making of this patient, discussed the same with the dictator, and agree with the dictators assessment and plan as written, documented as a scribe. Based on total visit time, I have performed more than 50% of this visit. Past Medical History Past Medical History: Asthma, Diabetes Mellitus, GERD/Reflux, Hyperlipidemia, Hypertension, Osteoarthritis (OA) Additional Past Medical History / Comment(s): chronic back pain. anemia, POTS History of Any Multi-Drug Resistant Organisms: None Reported Past Surgical History: Back Surgery Additional Past Surgical History / Comment(s): spinal fusion, PAIN CLINIC PROCEDURE, spinal cord stimulator device in back Past Anesthesia/Blood Transfusion Reactions: Motion Sickness Past Psychological History: ADD/ADHD, Anxiety, Bipolar Smoking Status: Current every day smoker Past Alcohol Use History: None Reported Additional Past Alcohol Use History / Comment(s): SMOKES ABOUT 1 PACK PER WEEK OFF AND ON SINCE AGE 23 Past Drug Use History: Marijuana Additional Drug Use History / Comment(s): LAST USED MARIJUANA LAST MONTH- INSTRUCTED TO REFRAIN FROM USE FOR AT LEAST 24 HOURS PRIOR TO PROCEDURE from vaping as well - Past Family History Mother Family Medical History: Deep Vein Thrombosis (DVT) Additional Family Medical History / Comment(s): aunt rectal, maternal grandmother breast Medications and Allergies Home Medications Medication Instructions Recorded Confirmed Type DULoxetine HCL [Cymbalta] 60 mg PO BID 03/21/17 12/27/23 History Albuterol Sulfate [Proair Hfa] 2 puff INHALATION RT-QID PRN 01/31/18 12/27/23 History Pregabalin [Lyrica] 200 mg PO TID 01/31/18 12/27/23 History Aspirin EC [Ecotrin Low Dose] 81 mg PO DAILY 01/08/22 12/27/23 History Atorvastatin [Lipitor] 10 mg PO HS 01/08/22 12/27/23 History Losartan Potassium 100 mg PO DAILY 01/08/22 12/27/23 History Omeprazole 40 mg PO DAILY 01/08/22 12/27/23 History sitaGLIPtin PHOS/metFORMIN HCL 1 tab PO BID 01/08/22 12/27/23 History [Janumet 50-1,000 mg Tablet] Metoclopramide HCl [Reglan] 10 mg PO Q8HR PRN #30 tab 09/18/22 12/27/23 Rx Insulin Glargine,Hum.rec.anlog 20 units SQ HS 12/27/23 12/27/23 History [Lantus Solostar Pen] Insulin Lispro [humaLOG Kwikpen] See Protocol SQ AC-TID 12/27/23 12/27/23 History OLANZapine [ZyPREXA] 15 mg PO HS 12/27/23 12/27/23 History Tirzepatide [Mounjaro] 2.5 mg SQ TU 12/27/23 12/27/23 History fluvoxaMINE [Luvox] 50 mg PO HS 12/27/23 12/27/23 History glipiZIDE [Glucotrol] 10 mg PO BID 12/27/23 12/27/23 History hydrOXYzine pamoate [Vistaril] 25 mg PO HS 12/27/23 12/27/23 History traMADol HCL 50 mg PO Q6H PRN 12/27/23 12/27/23 History Allergies Allergy/AdvReac Type Severity Reaction Status Date / Time ampicillin [From Unasyn] Allergy Rash/Hives Verified 12/27/23 17:46 erythromycin base Allergy Rash/Hives Verified 12/27/23 17:46 [From E-Mycin] sulbactam [From Unasyn] Allergy Rash/Hives Verified 12/27/23 17:46 atropine [From Lomotil] AdvReac Nausea & Verified 12/27/23 17:46 Vomiting diphenoxylate [From Lomotil] AdvReac Nausea & Verified 12/27/23 17:46 Vomiting Physical Exam Vitals: Vital Signs Temp Pulse Pulse Pulse Resp BP BP 12/28/23 07:00 97.4 F L 77 17 122/81 12/28/23 06:39 97.8 F 66 12 12/28/23 03:51 97.8 F 64 16 12/27/23 21:18 98.1 F 97 18 12/27/23 18:00 88 16 107/75 12/27/23 17:30 105 H 17 105/79 12/27/23 17:00 103 H 17 111/78 12/27/23 15:20 97.6 F 119 H 20 102/64 BP Pulse Ox 12/28/23 07:00 99 12/28/23 06:39 107/67 98 12/28/23 03:51 96/59 95 12/27/23 21:18 116/75 95 12/27/23 18:00 96 12/27/23 17:30 99 12/27/23 17:00 99 12/27/23 15:20 96 Intake and Output 12/27/23 12/28/23 12/28/23 22:59 06:59 14:59 Intake Total 250 590 Balance 250 590 Intake: Oral 250 590 Other: # Voids 1 Weight 117.934 kg 117.934 kg Results CBC & Chem 7: 12/27/23 15:48 12/28/23 10:05 Labs: Abnormal Lab Results - Last 24 Hours (Table) 12/27/23 12/27/23 12/27/23 Range/Units 15:48 15:48 15:48 WBC 15.9 H (3.8-10.6) k/uL Neutrophils # 12.3 H (1.3-7.7) k/uL Sodium 133 L (137-145) mmol/L Carbon Dioxide 20 L (22-30) mmol/L Glucose 292 H (74-99) mg/dL POC Glucose (mg/dL) (70-110) mg/dL Plasma Lactic Acid Yeyo (0.7-2.0) mmol/L AST 48 H (14-36) U/L ALT 49 H (4-34) U/L Urine Appearance Cloudy H (Clear) Ur Squamous Epith Cells 6 H (0-4) /hpf Urine Bacteria Rare H (None) /hpf Urine Mucus Rare H (None) /hpf 12/27/23 12/27/23 12/27/23 Range/Units 15:48 16:46 21:30 WBC (3.8-10.6) k/uL Neutrophils # (1.3-7.7) k/uL Sodium (137-145) mmol/L Carbon Dioxide (22-30) mmol/L Glucose (74-99) mg/dL POC Glucose (mg/dL) 276 H 168 H (70-110) mg/dL Plasma Lactic Acid Yeyo 3.1 H* (0.7-2.0) mmol/L AST (14-36) U/L ALT (4-34) U/L Urine Appearance (Clear) Ur Squamous Epith Cells (0-4) /hpf Urine Bacteria (None) /hpf Urine Mucus (None) /hpf 12/28/23 12/28/23 12/28/23 Range/Units 06:41 10:05 12:28 WBC (3.8-10.6) k/uL Neutrophils # (1.3-7.7) k/uL Sodium 134 L (137-145) mmol/L Carbon Dioxide (22-30) mmol/L Glucose 373 H (74-99) mg/dL POC Glucose (mg/dL) 205 H 238 H (70-110) mg/dL Plasma Lactic Acid Yeyo (0.7-2.0) mmol/L AST 58 H (14-36) U/L ALT 46 H (4-34) U/L Urine Appearance (Clear) Ur Squamous Epith Cells (0-4) /hpf Urine Bacteria (None) /hpf Urine Mucus (None) /hpf Thrombosis Risk Factor Assmnt - Choose All That Apply Any of the Below Risk Factors Present?: Yes Each Factor Represents 1 point: Age 41-60 years Other Risk Factors: No Thrombosis Risk Factor Assessment Total Risk Factor Score: 1 Thrombosis Risk Factor Assessment Level: Low Risk Assessment and Plan Time with Patient: Less than 30
[2023-12-28] MEDS ORDERED: NON FORMULARY DRUG (Pregabalin [Lyrica] 200 MG Capsule) PO SCH (16:00)
[2023-12-28 17:56] LABS: Glucose,Whole Blood 282 mg/dL (70-110)
[2023-12-28 20:38] LABS: Glucose,Whole Blood 286 mg/dL (70-110)
[2023-12-28] MEDS ORDERED: OLANZAPINE 15 MG PO SCH (21:00)
[2023-12-28] MEDS: ATORVASTATIN 10 MG TAB PO SCH (22:07)
[2023-12-28] MEDS: DULoxetine HCL 60 MG CAPSULE.DR PO SCH (22:07)
[2023-12-28] MEDS: glipiZIDE 10 MG TAB PO SCH (22:07)
[2023-12-28] MEDS: INSULIN DETEMIR (LEVEMIR) 100 UNIT/ML SYR SQ SCH (22:08)
[2023-12-28] MEDS: hydrOXYzine pamoate 25 MG CAP PO SCH (22:08)
--- NOTE | 2023-12-28 23:11 | P.CNNES ---
History of Present Illness Consult date: 12/28/23 Requesting physician: Zhao Keating Reason for Consult: EPS History of Present Illness: Patient is a 48-year-old female with history of OCD, came to the hospital yesterday at 3:19 PM because of involuntary movement, and tic-like activity. Patient has longstanding history of OCD, on multiple psychoactive medication. About 6 days ago, patient was started on Luvox 50 mg at bedtime. About 4 days after taking medication, patient developed dry mouth, some vocal tics and some myoclonic type jerking noted intermittently. The symptoms started 2 days ago. Patient lives by herself. She went to the therapy, could not speak. Her father noticed that when she is trying to say something, cannot get it out. Her " conversations are not put together". She has memory issues, as she forgets what she was talking about. It is hard for her to answer questions.. The last dose of Luvox she took was Sunday night, 2 nights ago. Yesterday the symptoms were really bad. Patient feels today it is getting better. Patient was seen by psychiatrist, who has recommended to stop Luvox. Patient has been on Zyprexa for 20 years and Cymbalta for quite some time as well. Patient's blood test shows sodium 134 potassium 4.0, normal renal functions. AST is mildly elevated 58, ALT 46. Patient's lactate was 3.1, which is down to 1.9. UA is negative. Troponin negative. EKG shows sinus tachycardia. Patient has history of diabetes for 5 to 6 years. She smoked 1 pack/day for about 3 to 4 years. She then quit smoking and started vaping which she has been doing for the last 8 years. She denies any alcohol use. She smokes marijuana for back pain. Review of Systems Constitutional: Reports weight gain, Denies chills, Denies fever Eyes: denies blurred vision, denies diplopia, denies pain, denies loss of vision Ears: deny: decreased hearing, ear discharge Ears, nose, mouth and throat: Denies headache, Denies sore throat, Denies vertigo Cardiovascular: Reports lightheadedness (Always have it, has POTS), Reports shortness of breath, Denies chest pain Respiratory: Reports cough with sputum, Denies excessive sputum Gastrointestinal: Denies abdominal pain, Denies diarrhea, Denies nausea, Denies vomiting Genitourinary: Denies urge incontinence, Denies urinary frequency Musculoskeletal: Reports neck pain (FOr 1 week), Denies low back pain, Denies myalgias Integumentary: Denies pruritus, Denies rash Neurological: Reports as per HPI Psychiatric: Reports anxiety, Denies depression Endocrine: Reports fatigue, Reports weight change Past Medical History Past Medical History: Asthma, Diabetes Mellitus, GERD/Reflux, Hyperlipidemia, Hypertension, Osteoarthritis (OA) Additional Past Medical History / Comment(s): chronic back pain. anemia, POTS History of Any Multi-Drug Resistant Organisms: None Reported Past Surgical History: Back Surgery Additional Past Surgical History / Comment(s): spinal fusion, PAIN CLINIC PROCEDURE, spinal cord stimulator device in back Past Anesthesia/Blood Transfusion Reactions: Motion Sickness Past Psychological History: ADD/ADHD, Anxiety, Bipolar Smoking Status: Current every day smoker Past Alcohol Use History: None Reported Additional Past Alcohol Use History / Comment(s): SMOKES ABOUT 1 PACK PER WEEK OFF AND ON SINCE AGE 23 Past Drug Use History: Marijuana Additional Drug Use History / Comment(s): LAST USED MARIJUANA LAST MONTH- INSTRUCTED TO REFRAIN FROM USE FOR AT LEAST 24 HOURS PRIOR TO PROCEDURE from vaping as well - Past Family History Mother Family Medical History: Deep Vein Thrombosis (DVT) Additional Family Medical History / Comment(s): aunt rectal, maternal grandmother breast Medications and Allergies Home Medications Medication Instructions Recorded Confirmed Type DULoxetine HCL [Cymbalta] 60 mg PO BID 03/21/17 12/27/23 History Albuterol Sulfate [Proair Hfa] 2 puff INHALATION RT-QID PRN 01/31/18 12/27/23 History Pregabalin [Lyrica] 200 mg PO TID 01/31/18 12/27/23 History Aspirin EC [Ecotrin Low Dose] 81 mg PO DAILY 01/08/22 12/27/23 History Atorvastatin [Lipitor] 10 mg PO HS 01/08/22 12/27/23 History Omeprazole 40 mg PO DAILY 01/08/22 12/27/23 History sitaGLIPtin PHOS/metFORMIN HCL 1 tab PO BID 01/08/22 12/27/23 History [Janumet 50-1,000 mg Tablet] Metoclopramide HCl [Reglan] 10 mg PO Q8HR PRN #30 tab 09/18/22 12/27/23 Rx Insulin Glargine,Hum.rec.anlog 20 units SQ HS 12/27/23 12/27/23 History [Lantus Solostar Pen] Insulin Lispro [humaLOG Kwikpen] See Protocol SQ AC-TID 12/27/23 12/27/23 History OLANZapine [ZyPREXA] 15 mg PO HS 12/27/23 12/27/23 History Tirzepatide [Mounjaro] 2.5 mg SQ TU 12/27/23 12/27/23 History glipiZIDE [Glucotrol] 10 mg PO BID 12/27/23 12/27/23 History hydrOXYzine pamoate [Vistaril] 25 mg PO HS 12/27/23 12/27/23 History Allergies Allergy/AdvReac Type Severity Reaction Status Date / Time ampicillin [From Unasyn] Allergy Rash/Hives Verified 12/27/23 17:46 erythromycin base Allergy Rash/Hives Verified 12/27/23 17:46 [From E-Mycin] sulbactam [From Unasyn] Allergy Rash/Hives Verified 12/27/23 17:46 atropine [From Lomotil] AdvReac Nausea & Verified 12/27/23 17:46 Vomiting diphenoxylate [From Lomotil] AdvReac Nausea & Verified 12/27/23 17:46 Vomiting Physical Examination - Vital Signs Vital Signs: Vital Signs Temp Pulse Pulse Resp BP BP Pulse Ox 12/28/23 19:42 98.3 F 79 17 121/78 93 L 12/28/23 14:32 98 F 89 18 116/79 96 12/28/23 07:00 97.4 F L 77 17 122/81 99 12/28/23 06:39 97.8 F 66 12 107/67 98 12/28/23 03:51 97.8 F 64 16 96/59 95 12/27/23 21:18 98.1 F 97 18 116/75 95 Intake and Output 12/28/23 12/28/23 12/28/23 06:59 14:59 22:59 Intake Total 1180 100 Balance 1180 100 Intake: Oral 1180 100 Other: # Voids 1 2 Weight 117.934 kg Patient is a middle aged female, very pleasant, in no acute distress. Patient is alert awake oriented to time place and person. Speech and language functions are normal. Patient can name and repeat very well. No aphasia or dysarthria. Patient has slightly hoarse voice, which is chronic, longstanding. She sometimes have stuttering or jerky voice which is somewhat new. Attention, concentration and fund of knowledge is adequate. On cranial nerve examination, pupils are equal, round and reacting to light, visual bowers are full on confrontation, with no neglect on double simultaneous stimulation. Extraocular muscles are intact with no nystagmus. Face is symm etric, tongue protrudes to the midline. Palatal elevation and sensation normal, hearing and shoulder shrug normal, facial sensation normal. On muscle strength testing, there is no pronator drift and the strength is normal in arms and legs distally and proximally. Deep tendon reflexes are symmetric 1-1+ in the arms and legs and plantars downgoing. Sensory to touch is equal with no neglect on double simultaneous stimulation. Cerebellar function showed no ataxia for [id number] testing. No dysdiadochokinesia. No ataxia for [id number] testing on either side. Tone and bulk of muscles normal. Gait deferred.. On general examination, there is no carotid bruit or murmur, S1-S2 audible. Chest is clear on consultation. Abdomen is soft nontender. No organomegaly, bowel sounds present. Peripheral pulses are present. No peripheral edema. Results - Laboratory Findings CBC and BMP: 12/27/23 15:48 12/28/23 10:05 Abnormal Lab Findings: Abnormal Labs 12/27/23 12/27/23 12/27/23 15:48 15:48 15:48 WBC 15.9 H Neutrophils # 12.3 H Sodium 133 L Carbon Dioxide 20 L Glucose 292 H POC Glucose (mg/dL) Plasma Lactic Acid Yeyo AST 48 H ALT 49 H Urine Appearance Cloudy H Ur Squamous Epith Cells 6 H Urine Bacteria Rare H Urine Mucus Rare H 12/27/23 12/27/23 12/27/23 15:48 16:46 21:30 WBC Neutrophils # Sodium Carbon Dioxide Glucose POC Glucose (mg/dL) 276 H 168 H Plasma Lactic Acid Yeyo 3.1 H* AST ALT Urine Appearance Ur Squamous Epith Cells Urine Bacteria Urine Mucus 12/28/23 12/28/23 12/28/23 06:41 10:05 12:28 WBC Neutrophils # Sodium 134 L Carbon Dioxide Glucose 373 H POC Glucose (mg/dL) 205 H 238 H Plasma Lactic Acid Yeyo AST 58 H ALT 46 H Urine Appearance Ur Squamous Epith Cells Urine Bacteria Urine Mucus 12/28/23 12/28/23 17:55 20:37 WBC Neutrophils # Sodium Carbon Dioxide Glucose POC Glucose (mg/dL) 282 H 286 H Plasma Lactic Acid Yeyo AST ALT Urine Appearance Ur Squamous Epith Cells Urine Bacteria Urine Mucus Assessment and Plan Assessment: * Acute brief myoclonic jerks, likely metabolic/medication related. Intermittent vocal tic-like behavior, also likely related to extraparametal side effect of psychoactive medications. * Obsessive-compulsive disorder * Mildly elevated liver enzymes. * Obesity Plan: * Patient has stopped Luvox and the last dose was 2 nights ago. Her myoclonic jerks as well as speech difficulty/stuttering/slow speech is improving. * Patient believes Luvox was helping with her OCD, but patient is already on numerous psychoactive medication, and all of them probably had synergistic effect producing these extraparametal symptoms. Recommend stay off Luvox. If it has to be tried, may have to discontinue or decrease dose of some other psychoactive medication, particularly Cymbalta and/or Zyprexa. * If patient remains stable overnight, will be clear for discharge in the morning. * Follow-up with her neurologist in 1 to 2 weeks. * Dr. Shepherd will be covering neurology service in the morning for any neurological concerns. Thank you for the consult.
[2023-12-29 04:35] VITALS: RESP 16
[2023-12-29 06:32] LABS: Glucose,Whole Blood 267 mg/dL (70-110)
[2023-12-29] MEDS: PANTOPRAZOLE 40 MG TABLET PO SCH (06:34)
[2023-12-29] MEDS: ASPIRIN 81 MG PO SCH (08:43)
[2023-12-29] MEDS: metFORMIN 500 MG TAB PO SCH (08:44)
[2023-12-29] MEDS: LINAGLIPTIN 5 MG TABLET PO SCH (08:44)
[2023-12-29 09:43] VITALS: BP 127/82; PULSE 85; TEMP 98
[2023-12-29 12:24] LABS: Glucose,Whole Blood 249 mg/dL (70-110)
--- NOTE | 2023-12-31 22:52 | P.DS ---
Providers Date of admission: 12/27/23 17:38 Attending physician: Amanda Gannon Consults: 12/27/23 17:31 Consult Physician Routine Consulting Provider: Connor Santana Consult Reason/Comments: medreaction Do you want consulting provider notified?: Yes Consult Physician Routine Consulting Provider: Cece Modi Consult Reason/Comments: EPS Do you want consulting provider notified?: Yes Primary care physician: Lincoln Cobos Hospital Course: Final Diagnosis Acute dystonic reaction/extra pyramidal symptoms, likely from medication interaction and affect, patient was recently started on Luvox and will recommend to discontinue this medication on discharge. Leukocytosis, reactive Lactic acidosis due to the dystonia Hx of Bipolar, OCD follows with [facility] Diabetes mellitus type 2 with hyperglycemia was started on Lantus and Mounjaro outpatient in the last week by her PCP and has a follow-up appointment on Sunday for further recommendations. Hyponatremia secondary to the hyperglycemia Elevated LFTs patient has history of non alcohol fatty liver History of asthma with no acute exacerbation History of gastroesophageal reflux disease Hypertension currently low normal and would recommend to hold losartan on discharge Hyperlipidemia maintained on statin Osteoarthritis History of POTS Chronic nicotine use Marijuana use GI prophylaxis Full code Discharge Disposition Patient is stable for discharge home. Patient has a follow up with her PCP Dr. Cobos on Sunday for further management and adjustment of her diabetic medications. Recommended to discontinue luvox and also tramadol on discharge. Neurology recommendations; if patient would benefit clinically from luvox would suggest trial of decreasing or discontinuting cymbalta and/or zyprexa. Patient to follow up at [facility] also she verbalizes understanding. ; monitor blood pressure and follow-up with Dr. Cobos on Sunday. Losartan has been discontinued. Repeat labs in 2 to 3 days. Hospital Course This is a pleasant 48-year-old female with medical history significant for asthma, diabetes mellitus, gastroesophageal reflux, hypertension, hyperlipidemia, POTS, anemia, bipolar, anxiety, ADD, OCD, current smoker and m arijuana use. Patient presents to the hospital with complaints of uncontrollable muscle twitching and movement of the upper extremities as well as difficulty finding her words. Patient was recently started on Luvox 4 days ago by her outpatient psychiatrist through [facility]. She was advised to come to the ER for further evaluation. On admission her white blood cell count is 15.9, sodium 134, glucose of 292, lactic acid elevated at 3.1, AST and ALT are elevated, troponin level negative. Urinalysis is not suggestive of infection. EKG was done showing sinus tachycardia with a short CA interval heart rate of [address] or T wave abnormalities noted. Patient is currently denying any headache, no shortness of breath no chest discomfort. No dizziness or lightheadedness. No nausea vomiting or diarrhea. She is not having any focal weakness or deficits. No difficulty swallowing. There is concern for dystonia patient was admitted to the hospital under medicine with c onsults placed to psychiatry and neurology. All symptoms have resolved at this time. Patient was evaluated by neurology. Symptoms have improved. Recommendations as above. Please see medication reconciliation for a list of current medication. Thank you for allowing us to participate in the care of this patient. The impression and plan of care has been dictated by Marjorie Baker, Nurse Practitioner as directed. Dr. Tej MD I have performed a history and physical examination and medical decision making of this patient, discussed the same with the dictator, and agree with the dictators assessment and plan as written, documented as a scribe. Based on total visit time, I have performed more than 50% of this visit. Patient Condition at Discharge: Good Plan - Discharge Summary Discharge Rx Participant: Yes New Discharge Prescriptions: Continue DULoxetine HCL [Cymbalta] 60 mg PO BID Albuterol Sulfate [Proair Hfa] 2 puff INHALATION RT-QID PRN PRN Reason: Shortness Of Breath Pregabalin [Lyrica] 200 mg PO TID Atorvastatin [Lipitor] 10 mg PO HS Omeprazole 40 mg PO DAILY Tirzepatide [Mounjaro] 2.5 mg SQ TU OLANZapine [ZyPREXA] 15 mg PO HS Insulin Lispro [humaLOG Kwikpen] See Protocol SQ AC-TID Aspirin EC [Ecotrin Low Dose] 81 mg PO DAILY sitaGLIPtin PHOS/metFORMIN HCL [Janumet 50-1,000 mg Tablet] 1 tab PO BID Metoclopramide HCl [Reglan] 10 mg PO Q8HR PRN #30 tab PRN Reason: Nausea Insulin Glargine,Hum.rec.anlog [Lantus Solostar Pen] 20 units SQ HS glipiZIDE [Glucotrol] 10 mg PO BID hydrOXYzine pamoate [Vistaril] 25 mg PO HS Discontinued Losartan Potassium 100 mg PO DAILY traMADol HCL 50 mg PO Q6H PRN PRN Reason: Pain fluvoxaMINE [Luvox] 50 mg PO HS Discharge Medication List DULoxetine HCL [Cymbalta] 60 mg PO BID 03/21/17 [History] Albuterol Sulfate [Proair Hfa] 2 puff INHALATION RT-QID PRN 01/31/18 [History] Pregabalin [Lyrica] 200 mg PO TID 01/31/18 [History] Aspirin EC [Ecotrin Low Dose] 81 mg PO DAILY 01/08/22 [History] Atorvastatin [Lipitor] 10 mg PO HS 01/08/22 [History] Omeprazole 40 mg PO DAILY 01/08/22 [History] sitaGLIPtin PHOS/metFORMIN HCL [Janumet 50-1,000 mg Tablet] 1 tab PO BID 01/08/22 [History] Metoclopramide HCl [Reglan] 10 mg PO Q8HR PRN #30 tab 09/18/22 [Rx] Insulin Glargine,Hum.rec.anlog [Lantus Solostar Pen] 20 units SQ HS 12/27/23 [History] Insulin Lispro [humaLOG Kwikpen] See Protocol SQ AC-TID 12/27/23 [History] OLANZapine [ZyPREXA] 15 mg PO HS 12/27/23 [History] Tirzepatide [Mounjaro] 2.5 mg SQ TU 12/27/23 [History] glipiZIDE [Glucotrol] 10 mg PO BID 12/27/23 [History] hydrOXYzine pamoate [Vistaril] 25 mg PO HS 12/27/23 [History] Follow up Appointment(s)/Referral(s): Lincoln Cobos MD [Primary Care Provider] - 1-2 days Ambulatory/Diagnostic Orders: Basic Metabolic Panel [LAB.AMB] Location: None Selected Complete Blood Count w/diff [LAB.AMB] Time Frame: 3 Days, Location: None Selected Patient Instructions/Handouts: Adverse Drug Reaction (ED) Activity/Diet/Wound Care/Special Instructions: Follow up with [facility] on discharge Keep your appointment with Dr. Cobos on sunday Blood pressure is low normal would recommend to hold off losartan on discharge and monitor blood pressure at home once a day and keep log for Dr. Cobos. Tramadol can also lead to conditions such as serotonin syndrome would recommend to stop taking this medication. Repeat labs in 2 to 3 days. Discharge Disposition: HOME SELF-CARE
[2024-01-01] MEDS ORDERED: NON FORMULARY DRUG (Tirzepatide [Mounjaro] 2.5 MG/0.5 ML Pen.Injctr) SQ SCH (09:00)
== END 2023-12-29 14:23 | disposition home or self-care (01) ==
LOC: EC 15:19 → 6NMEDSUR 17:38
PROVIDERS: ADMIT Hospitalist; ATTEND Hospitalist
DX: G24.09 Other drug induced dystonia (principal); K21.9 Gastro-esophageal reflux disease without esophagitis; E78.5 Hyperlipidemia, unspecified; I10 Essential (primary) hypertension; G89.29 Other chronic pain; G25.3 Myoclonus; E66.9 Obesity, unspecified; E87.20 Acidosis, unspecified; E11.65 Type 2 diabetes mellitus with hyperglycemia; E87.1 Hypo-osmolality and hyponatremia; J45.909 Unspecified asthma, uncomplicated; F90.9 Attention-deficit hyperactivity disorder, unspecified type; R94.5 Abnormal results of liver function studies; G90.A Postural orthostatic tachycardia syndrome [POTS]; M54.9 Dorsalgia, unspecified; F41.9 Anxiety disorder, unspecified; F31.9 Bipolar disorder, unspecified; F42.9 Obsessive-compulsive disorder, unspecified; F17.290 Nicotine dependence, other tobacco product, uncomplicated; Z79.899 Other long term (current) drug therapy; Z79.82 Long term (current) use of aspirin; Z98.1 Arthrodesis status; Z79.84 Long term (current) use of oral hypoglycemic drugs; Z88.1 Allergy status to other antibiotic agents; Z79.4 Long term (current) use of insulin; Z88.8 Allergy status to other drugs, medicaments and biological substances
CPT/HCPCS: 96361; 96374; 99285; 36415; 93005; 80053 ×2; 83605; 83735; 84100; 84484; 85025; 85610; 85730; 81001; 80143; 83036; 80179; G0378 ×3; J1200

== ENCOUNTER 2025-01-30 04:51 | Emergency (ER) | payer MEDICARE ==
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
[2025-01-30 05:30] LABS: Basophils # (A) 0.25 10*3/uL (0.00-0.10); Basophils % (A) 0.8 %; Eosinophils # (A) 0.19 10*3/uL (0.04-0.35); Eosinophils % (A) 0.6 %; HCT 40.3 % (37.2-46.3); HGB 13.6 g/dL (12.0-15.0); Lymphocytes # (A) 3.67 10*3/uL (0.90-5.00); Lymphocytes % (A) 11.4 %; MCH 28.5 pg (27.0-32.0); MCHC 33.7 g/dL (32.0-37.0); MCV 84.5 fL (80.0-97.0); Mean Platelet Volume 11.2 fL (9.5-12.2); Monocytes # (A) 2.61 10*3/uL (0.20-1.00); Monocytes % (A) 8.1 %; Neutrophils # (A) 24.38 10*3/uL (1.80-7.70); Neutrophils % (A) 75.8 %; Platelet Count 369 10*3/uL (140-440); RBC 4.77 10*6/uL (4.10-5.20); RDW 13.3 % (11.5-14.5); WBC 32.17 10*3/uL (4.50-10.00)
[2025-01-30 05:57] LABS: ALT 21 U/L (4-34); AST 32 U/L (14-36); African American GFR (CKD) >90 (>60 ml/min/1.73 sqM); Albumin 3.9 g/dL (3.5-5.0); Alcohol <10 mg/dL; Alkaline Phosphatase 97 U/L (38-126); Anion Gap 12 mmol/L; Blood Urea Nitrogen 11 mg/dL (7-17); Calcium 9.6 mg/dL (8.4-10.2); Carbon Dioxide 25 mmol/L (22-30); Chloride 99 mmol/L (98-107); Glucose 160 mg/dL (74-99); Non-African American GFR(CKD) >90 (>60 ml/min/1.73 sqM); Potassium 3.7 mmol/L (3.5-5.1); Sodium 136 mmol/L (137-145); Total Bilirubin 0.4 mg/dL (0.2-1.3); Total Protein 6.4 g/dL (6.3-8.2)
[2025-01-30 06:00] LABS: Partial Thromboplastin Time 22.2 sec (22.0-30.0)
--- NOTE | 2025-01-30 06:16 | CT ---
EXAM: CT Head Without Intravenous Contrast CLINICAL HISTORY: ITS.REASON CT Reason: trauma TECHNIQUE: Axial computed tomography images of the head/brain without intravenous contrast. CTDI is 45.2 mGy and DLP is 1155 mGy-cm. This CT exam was performed using one or more of the following dose reduction techniques: automated exposure control, adjustment of the mA and/or kV according to patient size, and/or use of iterative reconstruction technique. COMPARISON: CT dated 05/07/2023. FINDINGS: Brain: Unremarkable. No hemorrhage. No significant white matter disease. No edema. Ventricles: Unremarkable. No ventriculomegaly. Bones/joints: Unremarkable. No acute fracture. Soft tissues: Unremarkable. Sinuses: Unremarkable as visualized. No acute sinusitis. Mastoid air cells: Unremarkable as visualized. No mastoid effusion. IMPRESSION: Normal head/brain CT. EXAM: CT Cervical Spine Without Intravenous Contrast CLINICAL HISTORY: ITS.REASON CT Reason: trauma TECHNIQUE: Axial computed tomography images of the cervical spine without intravenous contrast. CTDI is 10.1 mGy and DLP is 322.3 mGy-cm. This CT exam was performed using one or more of the following dose reduction techniques: automated exposure control, adjustment of the mA and/or kV according to patient size, and/or use of iterative reconstruction technique. COMPARISON: No relevant prior studies available. FINDINGS: Vertebrae: Question of superior endplate fractures of C7 and T1. No involvement of the posterior elements. Question of a fracture through the posterior superior endplate of T3. Mild multilevel degenerative endplate and uncovertebral hypertrophy. Discs/spinal canal/neural foramina: No acute findings. No spinal canal stenosis. Soft tissues: Unremarkable. IMPRESSION: Question of fractures to the superior endplates of C7, T1 and T3. No definitive involvement of the posterior elements. Consider MRI for further evaluation.
--- NOTE | 2025-01-30 06:23 | CT ---
EXAM: CT Chest With Intravenous Contrast CLINICAL HISTORY: ITS.REASON CT Reason: trauma TECHNIQUE: Axial computed tomography images of the chest with intravenous contrast. CTDI is 14.5 mGy and DLP is 675.5 mGy-cm. This CT exam was performed using one or more of the following dose reduction techniques: automated exposure control, adjustment of the mA and/or kV according to patient size, and/or use of iterative reconstruction technique. COMPARISON: No relevant prior studies available. FINDINGS: Lungs: Unremarkable. No mass. No consolidation. Pleural space: Unremarkable. No pneumothorax. No significant effusion. Heart: Unremarkable. No cardiomegaly. No significant pericardial effusion. No significant coronary artery calcifications. Bones/joints: Fractures of the anterior right lateral fifth through seventh ribs. Anterior left second rib fracture. Heterogeneous appearance of the posterior superior endplate of T3. Degenerative changes are seen within the spine and shoulders. Heterogeneous appearance of the superior endplates of C7 and T1. Soft tissue stranding is seen anterior to the right proximal humerus. No dislocation. Soft tissues: Soft tissue stranding is seen within the medial left breast and right breast with a soft tissue density seen within the right breast seen on series 401 image 30 measuring 3.3 x 7.2 cm. Vasculature: Unremarkable. No thoracic aortic aneurysm. Lymph nodes: Unremarkable. No enlarged lymph nodes. Tubes, lines and devices: Spinal stimulation device is in place within the thoracic spinal canal. IMPRESSION: 1. Concern for fractures of C7, T1 and T3 vertebral bodies without involvement of the posterior elements. 2. Bilateral rib fractures without evidence of pneumothorax. 3. Soft tissue density seen within the right breast which may represent a hematoma although underlying mass is not excluded. EXAM: CT Abdomen and Pelvis With Intravenous Contrast CLINICAL HISTORY: ITS.REASON CT Reason: trauma TECHNIQUE: Axial computed tomography images of the abdomen and pelvis with intravenous contrast. CTDI is 14.5 mGy and DLP is 675.5 mGy-cm. This CT exam was performed using one or more of the following dose reduction techniques: automated exposure control, adjustment of the mA and/or kV according to patient size, and/or use of iterative reconstruction technique. COMPARISON: CT dated 01/08/2023. FINDINGS: Lung bases: Unremarkable. No mass. No consolidation. ABDOMEN: Liver: Hepatomegaly and hepatic steatosis. Gallbladder and bile ducts: Unremarkable. No calcified stones. No ductal dilation. Pancreas: Unremarkable. No mass. No ductal dilation. Spleen: Unremarkable. No splenomegaly. Adrenals: Unremarkable. No mass. Kidneys and ureters: Unremarkable. No solid mass. No hydronephrosis. Stomach and bowel: Colonic diverticulosis without evidence of acute diverticulitis. No obstruction. PELVIS: Appendix: No findings to suggest acute appendicitis. Bladder: Unremarkable. No mass. Reproductive: 2.6 cm left ovarian cyst. ABDOMEN and PELVIS: Intraperitoneal space: Unremarkable. No free air. No significant fluid collection. Bones/joints: Posterior spinal fusion of L3-L5. Degenerative changes seen within the spine and hips. No acute fracture. No dislocation. Soft tissues: Soft tissue stranding and soft tissue density is seen within the subcutaneous fat of the anterior mid pelvis likely representing a hematoma. Vasculature: Unremarkable. No abdominal aortic aneurysm. Lymph nodes: Unremarkable. No enlarged lymph nodes. IMPRESSION: 1. Soft tissue trauma and likely hematoma seen within the subcutaneous fat of the left mid pelvis. 2. No acute intra-abdominal or pelvic findings.
--- NOTE | 2025-01-30 06:52 | XR ---
EXAM: XR Left Hand Complete, 3 or More Views CLINICAL HISTORY: ITS.REASON XR Reason: trauma TECHNIQUE: Frontal, lateral and oblique views of the left hand. COMPARISON: No relevant prior studies available. FINDINGS: Bones/joints: Degenerative changes are seen within the antrum wrist. No acute fracture. No dislocation. Soft tissues: Unremarkable. No radiopaque foreign body. IMPRESSION: No acute findings in the left hand.
[2025-01-30] MEDS: ACETAMINOPHEN TAB 500 MG TAB PO STA (07:00)
[2025-01-30 08:12] VITALS: BP 98/65; PULSE 84; RESP 18; TEMP 97.7
[2025-01-30] MEDS: HYDROmorphone 1 MG/ML 1 ML SYRINGE IVP STA (08:12)
== END 2025-01-30 08:22 | disposition other institution (70) ==
LOC: EC 04:51
DX: S22.43XA Multiple fractures of ribs, bilateral, initial encounter for closed fracture (principal); S22.019A Unspecified fracture of first thoracic vertebra, initial encounter for closed fracture; S22.039A Unspecified fracture of third thoracic vertebra, initial encounter for closed fracture; F17.290 Nicotine dependence, other tobacco product, uncomplicated; Z88.0 Allergy status to penicillin; Z88.1 Allergy status to other antibiotic agents; Z88.8 Allergy status to other drugs, medicaments and biological substances; V89.2XXA Person injured in unspecified motor-vehicle accident, traffic, initial encounter; Y92.410 Unspecified street and highway as the place of occurrence of the external cause
CPT/HCPCS: 99285; 96374 ×2; 99291; 36415; 93005; 86900; 86901; 80053; 83605; 84484; 85025; 85610; 85730; 86850; 73130; 72125; 70450; 71260; 74177; G0480; J1171; Q9967; 80320

== ENCOUNTER → 2025-02-20 | Outpatient (CLI) | payer MEDICARE ==
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
== END | disposition home or self-care (01) ==
LOC: RADCTMAIN 15:09
PROVIDERS: ATTEND Orthopaedic Surgery Orthopaedic Surgery of the Spine
DX: S22.020A Wedge compression fracture of second thoracic vertebra, initial encounter for closed fracture (principal); S22.030A Wedge compression fracture of third thoracic vertebra, initial encounter for closed fracture; S12.690A Other displaced fracture of seventh cervical vertebra, initial encounter for closed fracture; S22.010A Wedge compression fracture of first thoracic vertebra, initial encounter for closed fracture; M51.369 Other intervertebral disc degeneration, lumbar region without mention of lumbar back pain or lower extremity pain; X58.XXXA Exposure to other specified factors, initial encounter
CPT/HCPCS: 72128

== ENCOUNTER 2025-03-04 14:01 | Emergency (ER) | payer MEDICARE ==
[2025-03-04 14:07] VITALS: RESP 18; TEMP 98.5
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
[2025-03-04 14:39] LABS: Basophils # (A) 0.13 10*3/uL (0.00-0.10); Eosinophils # (A) 0.24 10*3/uL (0.04-0.35); Eosinophils % (A) 1.9 %; HCT 39.7 % (37.2-46.3); HGB 13.2 g/dL (12.0-15.0); Lymphocytes # (A) 2.98 10*3/uL (0.90-5.00); Lymphocytes % (A) 23.6 %; MCH 28.6 pg (27.0-32.0); MCHC 33.2 g/dL (32.0-37.0); MCV 86.1 fL (80.0-97.0); Mean Platelet Volume 10.9 fL (9.5-12.2); Monocytes # (A) 0.85 10*3/uL (0.20-1.00); Monocytes % (A) 6.7 %; Neutrophils # (A) 8.31 10*3/uL (1.80-7.70); Neutrophils % (A) 65.8 %; Platelet Count 320 10*3/uL (140-440); RBC 4.61 10*6/uL (4.10-5.20); RDW 13.7 % (11.5-14.5); WBC 12.63 10*3/uL (4.50-10.00)
[2025-03-04 14:57] LABS: ALT 15 U/L (4-34); AST 27 U/L (14-36); African American GFR (CKD) >90 (>60 ml/min/1.73 sqM); Albumin 3.8 g/dL (3.5-5.0); Alkaline Phosphatase 104 U/L (38-126); Anion Gap 8 mmol/L; Blood Urea Nitrogen 10 mg/dL (7-17); Calcium 9.3 mg/dL (8.4-10.2); Carbon Dioxide 20 mmol/L (22-30); Chloride 106 mmol/L (98-107); Glucose 136 mg/dL (74-99); Lipase 93 U/L (23-300); Non-African American GFR(CKD) >90 (>60 ml/min/1.73 sqM); Sodium 134 mmol/L (137-145); Total Bilirubin 0.5 mg/dL (0.2-1.3); Total Protein 6.4 g/dL (6.3-8.2)
[2025-03-04] MEDS: HYDROmorphone 1 MG/ML 1 ML SYRINGE IVP STA (15:18)
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
[2025-03-04 16:41] VITALS: BP 140/103; PULSE 76
== END 2025-03-04 16:41 | disposition home or self-care (01) ==
LOC: EC 14:01
DX: S22.41XA Multiple fractures of ribs, right side, initial encounter for closed fracture (principal); R00.0 Tachycardia, unspecified; F17.290 Nicotine dependence, other tobacco product, uncomplicated; Z88.0 Allergy status to penicillin; Z88.1 Allergy status to other antibiotic agents; Z88.8 Allergy status to other drugs, medicaments and biological substances; V89.2XXA Person injured in unspecified motor-vehicle accident, traffic, initial encounter; Y92.410 Unspecified street and highway as the place of occurrence of the external cause
CPT/HCPCS: 36415; 80053; 83690; 85025; 74177; 99284; 96374; J1171; Q9967